=== PATIENT | male | born 1930 | race Two or more races ===

== ENCOUNTER 2016-09-22 19:23 | Inpatient (IN) | payer MEDICARE, OTHER ==
[~2016-09-22] VITALS: Ht 160 cm; Wt 56.7 kg
[2016-09-22 20:00] VITALS: BP 129/77
[2016-09-22] MEDS ORDERED: IV NS 0.9% 1,000 ML IV PRN (20:13)
[2016-09-22] MEDS ORDERED: MAGNESIUM HYDROXIDE 30 ML UDC PO PRN (20:30)
[2016-09-22] MEDS ORDERED: Z GUARD REMEDY 2 OZ OINT TP PRN (20:30)
[2016-09-22] MEDS ORDERED: ACETAMINOPHEN 325 MG TABLET PO PRN (20:30)
[2016-09-22] MEDS ORDERED: MAG HYDROX/AL HYDROX/SIMETH 30 ML UDC PO PRN (20:30)
[2016-09-22] MEDS ORDERED: HYDROCODONE/APAP 5/325MG 1 EACH TABLET PO PRN (20:30)
[2016-09-22] MEDS ORDERED: ONDANSETRON HCL/PF 4 MG/2 ML VIAL IVP PRN (20:30)
[2016-09-22] MEDS ORDERED: ZOLPIDEM TARTRATE 5 MG TABLET PO PRN (20:30)
[2016-09-22 20:36] VITALS: BP 129/77
[2016-09-23] VITALS: BP 125/77
[2016-09-23 00:05] LABS: DIFF TOTAL % 100 %; EOSINOPHILS # (AUTO) 0.1 /CMM (0.0-0.7); EOSINOPHILS % (AUTO) 0.3 % (0.0-6.0); HEMATOCRIT 31 % (39-51); HEMOGLOBIN 9.9 g/dL (13.5-17.5); LYMPHOCYTES # (AUTO) 1.5 /CMM (0.8-4.8); LYMPHOCYTES % (AUTO) 4.7 % (20.0-44.0); MEAN CORPUSCULAR HEMOGLOBIN 29 PG (26.0-33.0); MEAN CORPUSCULAR HGB CONC 32 g/dl (31.0-36.0); MEAN CORPUSCULAR VOLUME 88 fL (80-96); MONOCYTES # (AUTO) 1.7 /CMM (0.1-1.30); MONOCYTES % (AUTO) 5.4 % (2.0-12.0); NEUTROPHILS # (AUTO) 28.5 /CMM (1.8-8.9); NEUTROPHILS % (AUTO) 89.6 % (43.0-81.0); PLATELET COUNT (AUTO) 455 /CMM (150-450); RED BLOOD CELL COUNT(AUTO) 3.47 MIL/uL (4.5-6.0)
[2016-09-23 00:10] LABS: WHITE BLOOD COUNT (AUTO) 31.8 K/uL (4.3-11.0)
[2016-09-23 00:19] LABS: ALBUMIN 1.9 g/dL (3.4-5.0); BILIRUBIN,TOTAL 0.2 mg/dL (0.2-1.0); CALCIUM, SERUM 7.9 mg/dL (8.5-10.1); CREATININE 1.3 mg/dL (0.6-1.3); POTASSIUM 3.9 mmol/L (3.5-5.1); TOTAL PROTEIN, SERUM 5.5 g/dL (6.4-8.2)
[2016-09-23 00:21] LABS: INDIRECT BILIRUBIN 0.2 mg/dL (0.0-1.1)
[2016-09-23 00:23] LABS: TROPONIN I 0.184 ng/mL (0.00-0.056)
[2016-09-23] MEDS ORDERED: PIPERACILLIN /TAZOBACTAM 2.25 G VIAL IV ONE ×2 (01:09→06:18)
[2016-09-23] MEDS ORDERED: IV D5W 50 ML IV ONE ×2 (01:09→06:18)
[2016-09-23] MEDS ORDERED: IV SET PRIMARY PUMP SET 1 EA INFUS.SET MC ONE (01:19)
[2016-09-23] MEDS ORDERED: IV NS 0.9% 1,000 ML ONE (01:20)
[2016-09-23] MEDS ORDERED: SECONDARY IV SET 1 EA INFUS.SET MC ONE ×2 (01:20→09:55)
[2016-09-23] MEDS: PIPERACILLIN /TAZOBACTAM 2.25 G in IV D5W 50 ML IV SCH ×5 (01:25→23:07)
[2016-09-23 01:46] LABS: BASOPHILS % (MANUAL) 0 % (0.0-2.0); EOSINOPHILS % (MANUAL) 1 % (0-4); LYMPHOCYTES % (MANUAL) 5 % (16-48); PLATELET ESTIMATE INCREASED; RBC MORPHOLOGY COMMENT NORMAL RBC MORPH
[2016-09-23 04:00] VITALS: BP 115/68
[2016-09-23 07:46] LABS: BASOPHILS # (AUTO) 0.1 /CMM (0.0-0.2); BASOPHILS % (AUTO) 0.5 % (0.0-2.0); DIFF TOTAL % 100 %; EOSINOPHILS # (AUTO) 0.1 /CMM (0.0-0.7); EOSINOPHILS % (AUTO) 0.5 % (0.0-6.0); HEMATOCRIT 30 % (39-51); HEMOGLOBIN 9.9 g/dL (13.5-17.5); LYMPHOCYTES # (AUTO) 1.5 /CMM (0.8-4.8); LYMPHOCYTES % (AUTO) 5.5 % (20.0-44.0); MEAN CORPUSCULAR HEMOGLOBIN 29 PG (26.0-33.0); MEAN CORPUSCULAR HGB CONC 33 g/dl (31.0-36.0); MEAN CORPUSCULAR VOLUME 88 fL (80-96); MONOCYTES % (AUTO) 7.1 % (2.0-12.0); NEUTROPHILS # (AUTO) 24.1 /CMM (1.8-8.9); NEUTROPHILS % (AUTO) 86.4 % (43.0-81.0); PLATELET COUNT (AUTO) 424 /CMM (150-450); RED BLOOD CELL COUNT(AUTO) 3.43 MIL/uL (4.5-6.0); WHITE BLOOD COUNT (AUTO) 27.9 K/uL (4.3-11.0)
[2016-09-23 08:00] VITALS: BP 123/70
[2016-09-23 08:24] LABS: BAND % (MANUAL) 12 % (0.0-5.0); LYMPHOCYTES % (MANUAL) 6 % (16-48); PLATELET ESTIMATE INCREASED
[2016-09-23 08:31] LABS: CALCIUM, SERUM 7.8 mg/dL (8.5-10.1); CREATININE 1.4 mg/dL (0.6-1.3); PHOSPHORUS 2.4 mg/dL (2.5-4.9); POTASSIUM 3.8 mmol/L (3.5-5.1)
[2016-09-23 08:59] LABS: THYROID STIMULATING HORMONE 1.499 uIU/mL (0.358-3.74)
[2016-09-23] MEDS: ENOXAPARIN SODIUM 40 MG/0.4 ML DISP.SYRIN SQ SCH ×3 (09:00→11:29)
[2016-09-23] MEDS: Magnesium 1GM/D5W 100ML PREMIX 100 ML IV SCH ×2 (09:58→11:24)
[2016-09-23] MEDS: PANTOPRAZOLE 40 MG TABLET.DR PO SCH (09:59)
[2016-09-23] MEDS: ASPIRIN 81 MG TAB.CHEW PO SCH (09:59)
[2016-09-23] MEDS ORDERED: IV NS 0.9% 1,000 ML BAG IV PRN (12:30)
[2016-09-23] MEDS ORDERED: IV NS 0.9% 1,000 ML IV PRN (13:00)
[2016-09-23] MEDS ORDERED: METRONIDAZOLE 500 MG TABLET PO SCH (13:00)
[2016-09-23 15:50] LABS: KETONES,URINE NEGATIVE (NEGATIVE); LEUKOCYTE ESTERASE ,URINE 3+ (NEGATIVE); PH,URINE 5.5 (5.0-8.0)
[2016-09-23 15:51] LABS: ADD UA MICROSCOPIC YES
[2016-09-23 16:00] VITALS: BP 114/65
[2016-09-23 16:12] LABS: ADD URINE CULTURE YES; RBC,URINE TOO NUMEROUS TO COUN /HPF (0-2); WBC,URINE TOO NUMEROUS TO COUN /HPF (0-3)
[2016-09-23] MEDS ORDERED: K PHOS NEUTRAL 250 MG TABLET PO ONE (16:30)
[2016-09-23] MEDS: VANCOMYCIN HCL 125 MG/2.5 ML ORAL.SUSP PO SCH ×2 (17:26→23:07)
[2016-09-23] MEDS: IV NS 0.9% 1,000 ML IV PRN ×2 (18:12→23:06)
[2016-09-23 20:00] VITALS: BP 115/70
[2016-09-24] MEDS: PIPERACILLIN /TAZOBACTAM 2.25 G in IV D5W 50 ML IV SCH ×3 (05:21→17:31)
[2016-09-24] MEDS: VANCOMYCIN HCL 125 MG/2.5 ML ORAL.SUSP PO SCH ×4 (05:22→23:24)
[2016-09-24 07:07] LABS: BASOPHILS # (AUTO) 0.1 /CMM (0.0-0.2); BASOPHILS % (AUTO) 0.3 % (0.0-2.0); DIFF TOTAL % 100 %; EOSINOPHILS # (AUTO) 0.3 /CMM (0.0-0.7); EOSINOPHILS % (AUTO) 1.5 % (0.0-6.0); HEMATOCRIT 29 % (39-51); HEMOGLOBIN 9.5 g/dL (13.5-17.5); LYMPHOCYTES # (AUTO) 1.8 /CMM (0.8-4.8); LYMPHOCYTES % (AUTO) 9.7 % (20.0-44.0); MEAN CORPUSCULAR HEMOGLOBIN 29 PG (26.0-33.0); MEAN CORPUSCULAR HGB CONC 33 g/dl (31.0-36.0); MEAN CORPUSCULAR VOLUME 88 fL (80-96); MONOCYTES # (AUTO) 1.5 /CMM (0.1-1.30); MONOCYTES % (AUTO) 8.5 % (2.0-12.0); NEUTROPHILS # (AUTO) 14.5 /CMM (1.8-8.9); PLATELET COUNT (AUTO) 423 /CMM (150-450); RED BLOOD CELL COUNT(AUTO) 3.29 MIL/uL (4.5-6.0); WHITE BLOOD COUNT (AUTO) 18.1 K/uL (4.3-11.0)
[2016-09-24 07:10] LABS: TROPONIN I 0.139 ng/mL (0.00-0.056)
[2016-09-24 07:15] LABS: ALBUMIN 1.7 g/dL (3.4-5.0); BILIRUBIN,TOTAL 0.2 mg/dL (0.2-1.0); CALCIUM, SERUM 7.5 mg/dL (8.5-10.1); CREATININE 1.2 mg/dL (0.6-1.3); PHOSPHORUS 2.8 mg/dL (2.5-4.9); POTASSIUM 3.6 mmol/L (3.5-5.1); TOTAL PROTEIN, SERUM 4.9 g/dL (6.4-8.2)
[2016-09-24 08:00] VITALS: BP 133/74
[2016-09-24] MEDS: PANTOPRAZOLE 40 MG TABLET.DR PO SCH (08:07)
[2016-09-24] MEDS: ENOXAPARIN SODIUM 40 MG/0.4 ML DISP.SYRIN SQ SCH (08:08)
[2016-09-24] MEDS: ASPIRIN 81 MG TAB.CHEW PO SCH (08:08)
[2016-09-24] MEDS ORDERED: POLYVINYL ALCOHOL 15 ML BOTTLE EACHEYE PRN (12:00)
[2016-09-24 16:00] VITALS: BP 129/69
[2016-09-24] MEDS ORDERED: SECONDARY IV SET 1 EA INFUS.SET MC ONE (18:02)
[2016-09-24] MEDS: CEFTRIAXONE 1 G in IV D5W 50 ML IV SCH (18:05)
[2016-09-24] MEDS: FLUCONAZOLE (100 MG) 100 MG TABLET PO SCH (18:06)
[2016-09-24 20:00] VITALS: BP 138/77
[2016-09-25] MEDS: VANCOMYCIN HCL 125 MG/2.5 ML ORAL.SUSP PO SCH ×3 (05:32→17:28)
[2016-09-25 07:51] LABS: BASOPHILS # (AUTO) 0.1 /CMM (0.0-0.2); BASOPHILS % (AUTO) 0.6 % (0.0-2.0); DIFF TOTAL % 100 %; EOSINOPHILS # (AUTO) 0.2 /CMM (0.0-0.7); EOSINOPHILS % (AUTO) 2.1 % (0.0-6.0); HEMATOCRIT 30 % (39-51); LYMPHOCYTES # (AUTO) 1.7 /CMM (0.8-4.8); LYMPHOCYTES % (AUTO) 15.9 % (20.0-44.0); MEAN CORPUSCULAR HEMOGLOBIN 29 PG (26.0-33.0); MEAN CORPUSCULAR HGB CONC 33 g/dl (31.0-36.0); MEAN CORPUSCULAR VOLUME 87 fL (80-96); MONOCYTES # (AUTO) 1.2 /CMM (0.1-1.30); MONOCYTES % (AUTO) 10.6 % (2.0-12.0); NEUTROPHILS # (AUTO) 7.7 /CMM (1.8-8.9); NEUTROPHILS % (AUTO) 70.8 % (43.0-81.0); PLATELET COUNT (AUTO) 443 /CMM (150-450); RED BLOOD CELL COUNT(AUTO) 3.48 MIL/uL (4.5-6.0); WHITE BLOOD COUNT (AUTO) 10.9 K/uL (4.3-11.0)
[2016-09-25 08:00] VITALS: BP 150/78
[2016-09-25] MEDS: PANTOPRAZOLE 40 MG TABLET.DR PO SCH (08:21)
[2016-09-25] MEDS: ASPIRIN 81 MG TAB.CHEW PO SCH (08:22)
[2016-09-25] MEDS: FLUCONAZOLE (100 MG) 100 MG TABLET PO SCH (08:22)
[2016-09-25] MEDS: CHOLECALCIFEROL 1,000 UNIT TABLET (VIT D3) PO SCH (08:22)
[2016-09-25] MEDS: ENOXAPARIN SODIUM 40 MG/0.4 ML DISP.SYRIN SQ SCH (08:23)
[2016-09-25 08:32] LABS: CALCIUM, SERUM 7.8 mg/dL (8.5-10.1); CREATININE 1.2 mg/dL (0.6-1.3); POTASSIUM 3.5 mmol/L (3.5-5.1)
[2016-09-25 08:37] VITALS: BP 150/78
[2016-09-25 16:00] VITALS: BP 145/76
[2016-09-25] MEDS: CEFTRIAXONE 1 G in IV D5W 50 ML IV SCH (17:30)
[2016-09-25] MEDS ORDERED: CHOL100044 PO (17:42)
[2016-09-25] MEDS ORDERED: Fluconazole PO (17:42)
[2016-09-25] MEDS ORDERED: ASPI81TA2 PO (17:42)
[2016-09-25] MEDS ORDERED: VANC125C11 PO (17:43)
[2016-09-25] MEDS ORDERED: FLUC200T PO (18:47)
[2016-09-25 19:49] VITALS: BP 133/78
[2016-09-25 20:00] VITALS: BP 133/78
[2016-09-25] MEDS: VORICONAZOLE 200 MG TABLET PO SCH (22:03)
[2016-09-26] MEDS: VANCOMYCIN HCL 125 MG/2.5 ML ORAL.SUSP PO SCH ×3 (00:37→11:58)
[2016-09-26 08:00] VITALS: BP 146/71
[2016-09-26 08:01] LABS: CALCIUM, SERUM 7.9 mg/dL (8.5-10.1); CREATININE 1.2 mg/dL (0.6-1.3); POTASSIUM 3.6 mmol/L (3.5-5.1)
[2016-09-26] MEDS: CHOLECALCIFEROL 1,000 UNIT TABLET (VIT D3) PO SCH (08:22)
[2016-09-26] MEDS: ASPIRIN 81 MG TAB.CHEW PO SCH (08:22)
[2016-09-26] MEDS: PANTOPRAZOLE 40 MG TABLET.DR PO SCH (08:22)
[2016-09-26] MEDS: VORICONAZOLE 200 MG TABLET PO SCH (08:22)
[2016-09-26] MEDS: ENOXAPARIN SODIUM 40 MG/0.4 ML DISP.SYRIN SQ SCH (08:27)
[2016-09-26] MEDS ORDERED: Z GUARD REMEDY 4 OZ OINT TP PRN (10:30)
[2016-09-26] MEDS ORDERED: UREA 10% -AHA 4% CREAM 57 GM TUBE TP SCH (11:00)
[2016-09-26] MEDS ORDERED: Z GUARD REMEDY 2 OZ OINT TP SCH (17:00)
== END 2016-09-26 15:30 | disposition home or self-care (01) | DRG 871 ==
LOC: TELE 19:23 → MED 09-23 09:49
PROVIDERS: ADMIT Internal Medicine; ATTEND Internal Medicine
DX: A41.9 Sepsis, unspecified organism (principal); G92 Toxic encephalopathy; N17.0 Acute kidney failure with tubular necrosis; I21.4 Non-ST elevation (NSTEMI) myocardial infarction; E43 Unspecified severe protein-calorie malnutrition; E46 Unspecified protein-calorie malnutrition; A04.7 Enterocolitis due to Clostridium difficile; B37.49 Other urogenital candidiasis; R65.20 Severe sepsis without septic shock; F03.90 Unspecified dementia, unspecified severity, without behavioral disturbance, psychotic disturbance, mood disturbance, and anxiety; N40.0 Benign prostatic hyperplasia without lower urinary tract symptoms; B96.20 Unspecified Escherichia coli [E. coli] as the cause of diseases classified elsewhere; D64.9 Anemia, unspecified; E83.42 Hypomagnesemia; E86.1 Hypovolemia
CPT/HCPCS: 36415; 71010-TC; 80048-TC; 80053-TC; 80061-TC; 80076-TC; 81000-TC; 82306; 82728-TC; 83540-TC; 83605-TC; 83735-TC; 84100-TC; 84439-TC; 84443-TC; 84484-TC; 85025-TC; 87086-TC; 93307-TC; 97001-TC; 97110-TC; 97116-TC; 97530-TC; J0696; J1650; J2543; J3475; J7030; J7060; Z7610

== ENCOUNTER 2016-11-22 01:15 | Inpatient (IN) | payer MEDICARE ==
[~2016-11-22] VITALS: Ht 165.1 cm; Wt 48.1 kg
[~2016-11-22 01:15] MED LIST: ASPI81TA2 PO; CHOL100044 PO; FLUC200T PO; VANC125C11 PO
[2016-11-22] MEDS ORDERED: IV NS 0.9% 500 ML BAG IV ONE (01:30)
[2016-11-22 01:48] LABS: BASOPHILS % (AUTO) 0.1 % (0.0-2.0); EOSINOPHILS % (AUTO) 0.1 % (0.0-6.0); HEMATOCRIT 47 % (39-51); HEMOGLOBIN 15.1 g/dL (13.5-17.5); LYMPHOCYTES # (AUTO) 1.2 /CMM (0.8-4.8); LYMPHOCYTES % (AUTO) 4.5 % (20.0-44.0); MEAN CORPUSCULAR HEMOGLOBIN 27 PG (26.0-33.0); MEAN CORPUSCULAR HGB CONC 32 g/dl (31.0-36.0); MEAN CORPUSCULAR VOLUME 85 fL (80-96); MONOCYTES # (AUTO) 1.5 /CMM (0.1-1.30); MONOCYTES % (AUTO) 5.7 % (2.0-12.0); NEUTROPHILS # (AUTO) 23.3 /CMM (1.8-8.9); NEUTROPHILS % (AUTO) 89.6 % (43.0-81.0); PLATELET COUNT (AUTO) 489 /CMM (150-450); RDW COEFFICIENT OF VARIATION 16.9 (11.5-15.0); RED BLOOD CELL COUNT(AUTO) 5.52 MIL/uL (4.5-6.0)
--- NOTE | 2016-11-22 01:50 | NUR ---
PT BIB SON VIA WC WITH A C/O GENERALIZED WEAKNESS. PT IS AA&O X3. PT HAS A KURTZ TO GRAVITY HEEL COVER SOFTENER. URINE SAMPLE COLLECTED AND SENT TO LAB. 18G IV STARTED IN LAC. BLOOD WAS DRAWN AND SENT TO LAB. PT IS ON THE MONITOR AND CONTINUOUS PULSE OX. PT'S SON IS AT THE BEDSIDE. PT'S SON STATED THAT THE PT HAS BEEN HAVING DIARRHEA. HX OF C-DIFF.
[2016-11-22 01:55] LABS: BILIRUBIN,URINE NEGATIVE (NEGATIVE); BLOOD, URINE 3+ Ery/uL (NEGATIVE); COLOR,URINE YELLOW (YELLOW); KETONES,URINE 1+ (NEGATIVE); LEUKOCYTE ESTERASE ,URINE 2+ (NEGATIVE); NITRITE, URINE POSITIVE (NEGATIVE); PROTEIN,URINE TRACE mg/dl (NEGATIVE); UGLUCOSE NEGATIVE (NEGATIVE); UROBILINOGEN,URINE 0.2 EU/dL (0.2)
--- NOTE | 2016-11-22 01:55 | NUR ---
PT LEFT FOR CT VIA GURNEY.
[2016-11-22 02:00] LABS: CALCIUM, SERUM 9.4 mg/dL (8.5-10.1); CREATININE 2.1 mg/dL (0.6-1.3); POTASSIUM 4.2 mmol/L (3.5-5.1)
[2016-11-22 02:01] LABS: APPEARANCE,URINE CLOUDY (CLEAR)
[2016-11-22 02:02] LABS: ADD URINE CULTURE YES; BACTERIA,URINE 4+ /HPF (None Seen); SQUAMOUS EPITHELIAL CELL,UR Rare /HPF (None Seen); WBC,URINE TOO NUMEROUS TO COUN /HPF (0-3)
[2016-11-22 02:03] LABS: INR 0.99 (0.87-1.13); PROTHROMBIN TIME 10.6 SECS (9.5-12.7)
[2016-11-22 02:05] LABS: ALBUMIN 2.3 g/dL (3.4-5.0); BILIRUBIN,DIRECT 0.1 mg/dL (0.0-0.2); BILIRUBIN,TOTAL 0.6 mg/dL (0.2-1.0); TOTAL PROTEIN, SERUM 6.1 g/dL (6.4-8.2)
[2016-11-22] MEDS ORDERED: IV SET PRIMARY 1 EA INFUS.SET MC ONE (02:05)
[2016-11-22] MEDS ORDERED: IV NS 0.9% 500 ML IV ONE (02:05)
[2016-11-22] MEDS ORDERED: METRONIDAZOLE 500MG/ NS 100ML 100 ML IV ONE (02:05)
--- NOTE | 2016-11-22 02:06 | NUR ---
PT RETURNED FROM CT.
[2016-11-22 02:07] LABS: TROPONIN I 0.109 ng/mL (0.00-0.056)
--- NOTE | 2016-11-22 02:18 | NUR ---
PT REC'D NS ORDERED. DIRECTOR SUMMER SESSIONS IS AT THE BEDSIDE FOR BLOOD DRAW.
[2016-11-22] MEDS ORDERED: GLUC100017 PO (02:24)
[2016-11-22] MEDS ORDERED: PSYL3.4P6 PO (02:24)
--- NOTE | 2016-11-22 02:25 | NUR ---
CALLING REPORT TO TELE NURSE.
[2016-11-22] MEDS ORDERED: IV SET PRIMARY PUMP SET 1 EA INFUS.SET MC ONE ×2 (02:29→04:50)
[2016-11-22] MEDS ORDERED: FLAGYL/NS RTU 500 MG/100 ML PIGGYBACK IV ONE (02:30)
[2016-11-22] MEDS ORDERED: IV NS 0.9% 1,000 ML BAG IV ONE (02:30)
[2016-11-22] MEDS ORDERED: IV NS 0.9% 1,000 ML ONE (02:34)
[2016-11-22 02:35] LABS: LACTIC ACID 4.5 mmol/L (0.4-2.0)
[2016-11-22] MEDS ORDERED: ASPIRIN 325 MG TABLET ONE (02:40)
--- NOTE | 2016-11-22 02:45 | NUR ---
RUNNING 500 ML NS SLOWLY TO PREVENT FLUID OVERLOAD.
--- NOTE | 2016-11-22 02:48 | NUR ---
ENDORSING 1L NS TO ELECONSUELO, RN/TELE NURSE.
--- NOTE | 2016-11-22 02:50 | NUR ---
DR. CORNELL CALLED AND SPOKE TO DR. WATTS RE: PT ADMISSION.
[2016-11-22] MEDS ORDERED: ACETAMINOPHEN 325 MG TABLET PO PRN (03:00)
[2016-11-22] MEDS ORDERED: ASPIRIN 325 MG TABLET PO ONE (03:00)
[2016-11-22] MEDS ORDERED: ZOLPIDEM TARTRATE 5 MG TABLET PO PRN (03:00)
[2016-11-22] MEDS ORDERED: HYDROCODONE/APAP 5/325MG 1 EACH TABLET PO PRN (03:00)
[2016-11-22] MEDS ORDERED: IV NS 0.9% 1,000 ML IV SCH (03:00)
[2016-11-22] MEDS ORDERED: METRONIDAZOLE 500MG/ NS 100ML 500 MG in PREMIX 1 EA IV SCH ×2 (03:00→09:09)
[2016-11-22] MEDS ORDERED: Z GUARD REMEDY 2 OZ OINT TP PRN (03:00)
[2016-11-22] MEDS ORDERED: ONDANSETRON HCL/PF 4 MG/2 ML VIAL IVP PRN (03:00)
[2016-11-22 03:15] VITALS: BP 117/71
--- NOTE | 2016-11-22 03:15 | NUR ---
RECEIVED PATIENT FROM ER, NEW ADMISSION WITH DX OF SEPSIS RELATED TO RECENT C-DIFF INFECTION. ALERT AND ORIENTED X3, CALM, NO SOB, NO RESPIRATORY DISTRESS, ON ROOM AIR, 02 SAT 94%, MAY USE 2LPM VIA NC TO KEEP 02 SAT > 94%. ON AUSCULTATION, LUNG SOUNDS ARE CLEAR IN ALL M[place], ABDOMEN SOFT AND NON-TENDER, HYPOACTIVE BOWEL SOUNDS, PATIENT HAS NOT BEEN EATING AND HAS DIARRHEA FOR 1 WEEK. ABLE TO VERBALIZE NEEDS, ABLE TO SAY PAST MEDICAL HISTORY. HARD OF HEARING, NO HEARING AID. PATIENT ON NPO EXCEPT MEDS. LEFT AC #18 PERIPHERAL LINE IS PATENT AND INFUSING WELL OF NS BY GRAVITY FOR NOW. NO DIARRHEA DURING DIAPER CHANGE. KURTZ CATHETER FROM HOME, PATIENT IS CHRONIC KURTZ CATHETER USER, UNABLE TO VOID WITHOUT KURTZ CATHETER. URINE OUTPUT IS TEA COLORED URINE. SKIN ASSESSMENT PERFORMED. MOISTURE RELATED EXCORIATION NOTED TO SACRAL AREA AND GROIN AREA. APPLIED Z GUARD. ORIENTED TO USE OF CALL LIGHT AND ROOM. NEEDS ATTENDED, MADE COMFORTABLE, CALL LIGHT WITHIN REACH.
[2016-11-22 03:58] LABS: BAND % (MANUAL) 59 % (0.0-5.0); LYMPHOCYTES % (MANUAL) 4 % (16-48); MONOCYTES % (MANUAL) 6 % (0-11.0); NEUTROPHILS % (MANUAL) 31 (42-76)
[2016-11-22 03:59] LABS: PLATELET ESTIMATE INCREASED
[2016-11-22 04:00] LABS: ANISOCYTOSIS 1+
[2016-11-22] MEDS ORDERED: VANCOMYCIN HCL 125 MG/2.5 ML ORAL.SUSP ONE (04:01)
--- NOTE | 2016-11-22 04:04 | NUR ---
FLAGYL 500 MG IVP NOT GIVEN, PATIENT RECEIVED FLAGYL AT 0230 IN ER.
[2016-11-22] MEDS ORDERED: VANCOMYCIN FOR PO/GT USE 500 MG ORAL.SUSP PO SCH (06:00)
--- NOTE | 2016-11-22 06:02 | NUR ---
PER LAB LACTIC ACID IS 3.4. PREVIOUS LACTIC ACID BEFORE THE FLUID CHALLENGE IS 4.5. VITAL SIGNS ARE WNL, REMAINED AFEBRILE.
--- NOTE | 2016-11-22 06:31 | NUR ---
PATIENT IS ALERT AND AWAKE, MAKING JOKES, NO SOB, REMAINED AFEBRILE, KURTZ CATHETER DRAINING WELL, LAC #18 PERIPHERAL LINE IS PATENT AND INFUSING WELL WITH NS AT 100 CC/HR, EXPLAINED TO PATIENT REGARDING NPO STATUS. NO DIARRHEA NOTED, PATIENT IS ACTIVELY PASSING GAS.
[2016-11-22 07:00] VITALS: BP 116/75
--- NOTE | 2016-11-22 07:30 | NUR ---
PT RECEIVED RESTING COMFORTABLY IN BED. NO S/S OR C/O PAIN OR DISTRESS NOTED. SIDE RAILS UP X2, CALL LIGHT LEFT WITHIN REACH. WILL CONTINUE PLAN OF CARE.
[2016-11-22] MEDS ORDERED: IV NS 0.9% 1,000 ML IV PRN (08:40)
[2016-11-22] MEDS: PANTOPRAZOLE 40 MG TABLET.DR PO SCH (10:25)
[2016-11-22] MEDS: ASPIRIN 81 MG TAB.CHEW PO SCH (10:25)
[2016-11-22] MEDS: CHOLECALCIFEROL 1,000 UNIT TABLET (VIT D3) PO SCH (10:25)
[2016-11-22] MEDS: ENOXAPARIN SODIUM 30 MG/0.3 ML DISP.SYRIN SQ SCH (10:26)
--- NOTE | 2016-11-22 10:38 | NUR ---
WOUND CARE CONSULT: PATIENT SEEN AND SKIN ASSESSMENT DONE. PATIENT ALERT, ORIENTED, INCONTINENT, NEEDS ASSIST WITH TURNING AND REPOSITIONING, VISHNU 12, ANALY ISOFLEX LENI BED IN USE. SEE TODAY'S SKIN ASSESSMENT IN PCS ALONG WITH RECOMMENDATIONS. RECOMMEND MOISTURE PROTECTION WITH Z GUARD ORDERED, TURN AND REPOSITION EVERY 2 HRS PATIENT CONDITION PERMITS, OFFLOAD BOTH HEELS. ALL DISCUSSED WITH NURSING STAFF. MD IN AGREEMENT WITH PLAN OF CARE. Addendum: 11/22/16 at 1040 by RATNA MULLEN WNDNU Amended: Links added.
[2016-11-22] MEDS ORDERED: SECONDARY IV SET 1 EA INFUS.SET MC ONE (11:57)
[2016-11-22] MEDS: METRONIDAZOLE 500MG/ NS 100ML 500 MG in PREMIX 1 EA IV SCH ×2 (12:05→21:31)
[2016-11-22] MEDS ORDERED: VANCOMYCIN HCL 125 MG/2.5 ML ORAL.SUSP PO SCH (13:00)
[2016-11-22] MEDS: CLOTRIMAZOLE 1% 15 GM TUBE TP SCH (16:21)
[2016-11-22] MEDS: VANCOMYCIN HCL 125 MG/2.5 ML ORAL.SUSP PO SCH ×2 (16:21→21:34)
--- NOTE | 2016-11-22 18:57 | NUR ---
CHANGE OF SHIFT REPORT PT RESTING COMFORTABLY IN BED. NO S/S OR C/O PAIN OR DISTRESS NOTED. SIDE RAILS UP X2, CALL LIGHT LEFT WITHIN REACH. PT KEPT CLEAN, DRY, AND COMFORTABLE. NO SIGNIFICANT CHANGES SINCE PREVIOUS SHIFT. WILL GIVE REPORT TO ALEJANDRO YARBROUGH.
--- NOTE | 2016-11-22 19:20 | NUR ---
RN OPEN NOTES RECEIVED PATIENT AWAKE IN BED. A/O X3. NO SIGNS OF DISTRESS OR DISCOMFORT. BREATHING EVEN AND UNLABORED. IV ACCESS IN LAC WITH NS CURRENTLY INFUSING. NO SIGN OF REDNESS OR INFILTRATION. KURTZ IN TACT WITH CLEAR YELLOW FLUID NOTED. BED IN LOW LOCKED POSITION WITH SIDE RAILS X2. CALL LIGHT WITHIN REACH. WILL CONTINUE TO MONITOR.
[2016-11-22 20:00] VITALS: BP 101/64
[2016-11-23] MEDS: METRONIDAZOLE 500MG/ NS 100ML 500 MG in PREMIX 1 EA IV SCH ×3 (05:09→20:27)
--- NOTE | 2016-11-23 07:35 | NUR ---
RN CLOSING NOTES PATIENT AWAKE IN BED. A/O X3. NO SIGNS OF DISTRESS OR DISCOMFORT. BREATHING EVEN AND UNLABORED. IV ACCESS IN RAC WITH NS CURRENTLY INFUSING. NO SIGN OF REDNESS OR INFILTRATION. KURTZ IN TACT WITH CLEAR YELLOW FLUID NOTED. NO SIGNIFICANT CHANGES THROUGH THE NIGHT. PATIENT KEPT CLEAN DRY AND COMFORTABLE. BED IN LOW LOCKED POSITION WITH SIDE RAILS X2. CALL LIGHT WITHIN REACH. ENDORSED TO AM SHIFT FOR MAHAD
[2016-11-23 07:36] LABS: BASOPHILS # (AUTO) 0.1 /CMM (0.0-0.2); BASOPHILS % (AUTO) 0.9 % (0.0-2.0); EOSINOPHILS # (AUTO) 0.2 /CMM (0.0-0.7); EOSINOPHILS % (AUTO) 0.9 % (0.0-6.0); HEMATOCRIT 36 % (39-51); HEMOGLOBIN 12.1 g/dL (13.5-17.5); LYMPHOCYTES # (AUTO) 1.2 /CMM (0.8-4.8); MEAN CORPUSCULAR HEMOGLOBIN 28 PG (26.0-33.0); MEAN CORPUSCULAR HGB CONC 33 g/dl (31.0-36.0); MEAN CORPUSCULAR VOLUME 84 fL (80-96); MONOCYTES # (AUTO) 0.8 /CMM (0.1-1.30); MONOCYTES % (AUTO) 5.1 % (2.0-12.0); NEUTROPHILS # (AUTO) 14.4 /CMM (1.8-8.9); NEUTROPHILS % (AUTO) 86.1 % (43.0-81.0); PLATELET COUNT (AUTO) 429 /CMM (150-450); RDW COEFFICIENT OF VARIATION 17.6 (11.5-15.0); WHITE BLOOD COUNT (AUTO) 16.8 K/uL (4.3-11.0)
[2016-11-23 07:48] LABS: CALCIUM, SERUM 7.9 mg/dL (8.5-10.1); CREATININE 1.4 mg/dL (0.6-1.3); MAGNESIUM 1.6 mg/dL (1.8-2.4); PHOSPHORUS 2.8 mg/dL (2.5-4.9); POTASSIUM 3.5 mmol/L (3.5-5.1)
[2016-11-23 08:00] VITALS: BP 102/51
[2016-11-23] MEDS: CHOLECALCIFEROL 1,000 UNIT TABLET (VIT D3) PO SCH (08:12)
[2016-11-23] MEDS: PANTOPRAZOLE 40 MG TABLET.DR PO SCH (08:12)
[2016-11-23] MEDS: ASPIRIN 81 MG TAB.CHEW PO SCH (08:12)
[2016-11-23] MEDS: VANCOMYCIN HCL 125 MG/2.5 ML ORAL.SUSP PO SCH ×4 (08:12→20:27)
[2016-11-23] MEDS: ENOXAPARIN SODIUM 30 MG/0.3 ML DISP.SYRIN SQ SCH (08:19)
[2016-11-23] MEDS: CLOTRIMAZOLE 1% 15 GM TUBE TP SCH ×2 (08:20→16:25)
[2016-11-23] MEDS ORDERED: SECONDARY IV SET 1 EA INFUS.SET MC ONE (10:21)
[2016-11-23] MEDS: Magnesium 1GM/D5W 100ML PREMIX 100 ML IV SCH ×2 (10:28→11:45)
[2016-11-23] MEDS ORDERED: IV D5/ 0.9% NACL 1,000 ML IV PRN (10:33)
[2016-11-23] MEDS ORDERED: Magnesium 1GM/D5W 100ML PREMIX 100 ML IV SCH (10:33)
[2016-11-23] MEDS: POTASSIUM CHLORIDE 20 MEQ TAB.PRT.SR PO SCH ×3 (11:44→16:24)
[2016-11-23 16:00] VITALS: BP 113/63
[2016-11-23 18:58] LABS: BASOPHILS % (AUTO) 0.3 % (0.0-2.0); EOSINOPHILS # (AUTO) 0.1 /CMM (0.0-0.7); EOSINOPHILS % (AUTO) 0.7 % (0.0-6.0); HEMATOCRIT 37 % (39-51); HEMOGLOBIN 11.9 g/dL (13.5-17.5); LYMPHOCYTES # (AUTO) 1.3 /CMM (0.8-4.8); LYMPHOCYTES % (AUTO) 8.2 % (20.0-44.0); MEAN CORPUSCULAR HEMOGLOBIN 27 PG (26.0-33.0); MEAN CORPUSCULAR HGB CONC 32 g/dl (31.0-36.0); MEAN CORPUSCULAR VOLUME 85 fL (80-96); MONOCYTES # (AUTO) 0.9 /CMM (0.1-1.30); NEUTROPHILS % (AUTO) 84.8 % (43.0-81.0); PLATELET COUNT (AUTO) 444 /CMM (150-450); RDW COEFFICIENT OF VARIATION 17.6 (11.5-15.0); RED BLOOD CELL COUNT(AUTO) 4.36 MIL/uL (4.5-6.0); WHITE BLOOD COUNT (AUTO) 15.3 K/uL (4.3-11.0)
--- NOTE | 2016-11-23 19:10 | NUR ---
RN OPEN NOTES RECEIVED PATIENT AWAKE IN BED. A/O X3. NO SIGNS OF DISTRESS OR DISCOMFORT. BREATHING EVEN AND UNLABORED. IV ACCESS IN RAC WITH D5NS CURRENTLY INFUSING. NO SIGN OF REDNESS OR INFILTRATION. KURTZ IN TACT WITH CLEAR YELLOW FLUID NOTED. BED IN LOW LOCKED POSITION WITH SIDE RAILS X2. CALL LIGHT WITHIN REACH. WILL CONTINUE TO MONITOR.
[2016-11-23 20:00] VITALS: BP_SYST 117; BP_SYST 98; BP_DIAS 60; BP_DIAS 65
[2016-11-23] MEDS ORDERED: IV SET PRIMARY PUMP SET 1 EA INFUS.SET MC ONE (23:34)
[2016-11-24] MEDS: METRONIDAZOLE 500MG/ NS 100ML 500 MG in PREMIX 1 EA IV SCH ×3 (04:59→21:40)
[2016-11-24 06:29] LABS: BASOPHILS % (AUTO) 0.1 % (0.0-2.0); EOSINOPHILS # (AUTO) 0.1 /CMM (0.0-0.7); EOSINOPHILS % (AUTO) 0.9 % (0.0-6.0); HEMATOCRIT 34 % (39-51); HEMOGLOBIN 10.9 g/dL (13.5-17.5); LYMPHOCYTES # (AUTO) 1.6 /CMM (0.8-4.8); LYMPHOCYTES % (AUTO) 13.2 % (20.0-44.0); MEAN CORPUSCULAR HEMOGLOBIN 27 PG (26.0-33.0); MEAN CORPUSCULAR HGB CONC 32 g/dl (31.0-36.0); MEAN CORPUSCULAR VOLUME 84 fL (80-96); MONOCYTES % (AUTO) 8.6 % (2.0-12.0); NEUTROPHILS # (AUTO) 9.1 /CMM (1.8-8.9); NEUTROPHILS % (AUTO) 77.2 % (43.0-81.0); PLATELET COUNT (AUTO) 444 /CMM (150-450); RDW COEFFICIENT OF VARIATION 17.1 (11.5-15.0); RED BLOOD CELL COUNT(AUTO) 4.03 MIL/uL (4.5-6.0); WHITE BLOOD COUNT (AUTO) 11.8 K/uL (4.3-11.0)
[2016-11-24 06:33] LABS: ALBUMIN 1.6 g/dL (3.4-5.0); BILIRUBIN,TOTAL 0.3 mg/dL (0.2-1.0); CALCIUM, SERUM 7.6 mg/dL (8.5-10.1); CREATININE 1.2 mg/dL (0.6-1.3); MAGNESIUM 2.2 mg/dL (1.8-2.4)
--- NOTE | 2016-11-24 07:19 | NUR ---
RN CLOSING NOTES PATIENT AWAKE IN BED. A/O X3. NO SIGNS OF DISTRESS OR DISCOMFORT. BREATHING EVEN AND UNLABORED. IV ACCESS IN RAC WITH D5NS CURRENTLY INFUSING. NO SIGN OF REDNESS OR INFILTRATION. KURTZ IN TACT WITH CLEAR YELLOW FLUID NOTED. NO SIGNIFICANT CHANGES THROUGH THE NIGHT. PATIENT KEPT CLEAN DRY AND COMFORTABLE. BED IN LOW LOCKED POSITION WITH SIDE RAILS X2. CALL LIGHT WITHIN REACH. ENDORSED TO AM SHIFT FOR MAHAD
--- NOTE | 2016-11-24 07:25 | NUR ---
RN MS NOTES PATIENT IN BED, ALERT AND ORIENTED, NO S/SX OF DISTRESS AT THIS TIME, PIV PATENT AND INTACT WITH IV FLUIDS INFUSING, SAFETY MEASURES IN PLACED, BED ALARM ON, LOW LOCKED POSITION, SIDERAILS X2 UP, CALL LIGHT WITHIN REACH, WILL CONTINUE TO MONITOR.
[2016-11-24] MEDS: CHOLECALCIFEROL 1,000 UNIT TABLET (VIT D3) PO SCH (08:32)
[2016-11-24] MEDS: PANTOPRAZOLE 40 MG TABLET.DR PO SCH (08:32)
[2016-11-24] MEDS: ASPIRIN 81 MG TAB.CHEW PO SCH (08:32)
[2016-11-24] MEDS: VANCOMYCIN HCL 125 MG/2.5 ML ORAL.SUSP PO SCH ×4 (08:32→21:41)
[2016-11-24] MEDS: ENOXAPARIN SODIUM 30 MG/0.3 ML DISP.SYRIN SQ SCH (08:36)
[2016-11-24 08:50] VITALS: BP 93/64
[2016-11-24] MEDS: CLOTRIMAZOLE 1% 15 GM TUBE TP SCH ×2 (10:59→16:34)
[2016-11-24] MEDS ORDERED: IV NS 0.9% 250 ML IV ONE (11:53)
[2016-11-24] MEDS ORDERED: SECONDARY IV SET 1 EA INFUS.SET MC ONE (12:13)
--- NOTE | 2016-11-24 14:00 | NUR ---
RN MS NOTES RECEIVED A CALL FROM LAB C. DIFF DNA CAME BACK POSITIVE, DR. MARTI MADE AWARE.
[2016-11-24] MEDS ORDERED: K PHOS NEUTRAL 250 MG TABLET PO ONE (14:30)
[2016-11-24 16:00] VITALS: BP 96/63
--- NOTE | 2016-11-24 18:30 | NUR ---
RN MS NOTES PATIENT IN BED, ALERT AND ORIENTED WITH EPISODE OF SUDDEN OUTBURSTS, APPROACHED PATIENT CALMLY AND ASKED IF HE NEEDS ASSISTANCE, PATIENT REFUSED DINNER AT THIS TIME, WILL OFFER AGAIN AT A LATER TIME, STAFF REPORTED PATIENT HAD 1 BM DURING THIS SHIFT, NO LOOSE STOOL, WOUND TREATMENT RENDERED, PROMPTED PATIENT TO TURN AND REPOSITION, REFUSES TO WEAR SCD DEVICE AT THIS TIME, EXPLAINED RISKS AND BENEFITS STILL REFUSED, PIV ON RIGHT AC PATENT AND INTACT, FLUSHES WELL WITH NS, ALL DUE MEDS ADMINISTERED, LOW BED, LOCKED POSITION WITH SIDERAILS X2 UP, CALL LIGHT WITHIN REACH, CONTINUES ON CONTACT PRECAUTION FOR C. DIFF, WILL ENDORSE TO FIXTURE REPAIRER FABRICATOR FOR MAHAD.
[2016-11-24 20:00] VITALS: BP 106/58
--- NOTE | 2016-11-24 20:00 | NUR ---
PATIENT IN BED, ALERT AND ORIENTED X3, CALM, NO RESPIRATORY DISTRESS, ON ROOM AIR, 02 SAT 96%, LUNG SOUNDS ARE CLEAR, ABDOMEN SOFT AND NON-TENDER, ACTIVE BOWEL SOUNDS. RIGHT AC #22 IS PATENT AND INTACT, COMPLAINING OF BACK DISCOMFORT, APPLIED LOTION TO BACK DOWN TO LOWER BACK. PATIENT DID NOT EAT DINNER. ENCOURAGED PATIENT TO EAT, FOOD HEATED, REPOSITIONED TO HIGH NICOLE'S. PATIENT ABLE TO EAT ON HIS OWN WITH MINIMAL ASSISTANCE. NO COUGHING DURING SWALLOWING. KURTZ CATHETER IS DRAINING WELL. PATIENT IS DEPENDENT ON KURTZ CATHETER TO VOID. URINE OUTPUT AT START OF SHIFT IS 200 CC, DARK COLORED URINE. NEEDS ATTENDED, CALL LIGHT WITHIN REACH.
[2016-11-25] MEDS: METRONIDAZOLE 500MG/ NS 100ML 500 MG in PREMIX 1 EA IV SCH (04:34)
--- NOTE | 2016-11-25 06:45 | NUR ---
PATIENT IS ALERT AND AWAKE, NO SOB, TOLERATING ROOM AIR, DENIES ANY PAIN AT THIS TIME. PROVIDED SKIN CARE TO BACK, SACRAL AND GROIN AREA. REPOSITIONED PATIENT SIDE TO SIDE, KURTZ CATHETER IS DRAINING DARK COLORED URINE, ALL DUE MEDICATIONS GIVEN, CALL LIGHT WITHIN REACH
[2016-11-25 07:29] LABS: BASOPHILS % (AUTO) 0.3 % (0.0-2.0); EOSINOPHILS # (AUTO) 0.2 /CMM (0.0-0.7); EOSINOPHILS % (AUTO) 1.5 % (0.0-6.0); HEMATOCRIT 36 % (39-51); HEMOGLOBIN 11.5 g/dL (13.5-17.5); LYMPHOCYTES % (AUTO) 18.7 % (20.0-44.0); MEAN CORPUSCULAR HEMOGLOBIN 27 PG (26.0-33.0); MEAN CORPUSCULAR HGB CONC 32 g/dl (31.0-36.0); MEAN CORPUSCULAR VOLUME 85 fL (80-96); MONOCYTES # (AUTO) 1.2 /CMM (0.1-1.30); MONOCYTES % (AUTO) 11.4 % (2.0-12.0); NEUTROPHILS # (AUTO) 7.3 /CMM (1.8-8.9); NEUTROPHILS % (AUTO) 68.1 % (43.0-81.0); PLATELET COUNT (AUTO) 476 /CMM (150-450); RDW COEFFICIENT OF VARIATION 17.6 (11.5-15.0); RED BLOOD CELL COUNT(AUTO) 4.21 MIL/uL (4.5-6.0); WHITE BLOOD COUNT (AUTO) 10.7 K/uL (4.3-11.0)
--- NOTE | 2016-11-25 07:33 | NUR ---
AM RN NOTE Received patient awake, A/O X3 verbally responsive. Pleasant and talkative upon approach. Denies any pain at this time. IV site intact and patent. Bed in low locked position. Will continue to monitor. Call light with in reach.
[2016-11-25 07:48] LABS: CALCIUM, SERUM 7.5 mg/dL (8.5-10.1); CREATININE 1.1 mg/dL (0.6-1.3); PHOSPHORUS 2.4 mg/dL (2.5-4.9); POTASSIUM 3.7 mmol/L (3.5-5.1)
[2016-11-25 08:00] VITALS: BP 93/58
[2016-11-25] MEDS: PANTOPRAZOLE 40 MG TABLET.DR PO SCH (08:15)
[2016-11-25] MEDS: CHOLECALCIFEROL 1,000 UNIT TABLET (VIT D3) PO SCH (08:15)
[2016-11-25] MEDS: ASPIRIN 81 MG TAB.CHEW PO SCH (08:15)
[2016-11-25] MEDS: CLOTRIMAZOLE 1% 15 GM TUBE TP SCH ×2 (08:16→16:52)
[2016-11-25] MEDS: ENOXAPARIN SODIUM 30 MG/0.3 ML DISP.SYRIN SQ SCH (08:21)
[2016-11-25] MEDS: VANCOMYCIN HCL 125 MG/2.5 ML ORAL.SUSP PO SCH ×4 (08:41→21:44)
[2016-11-25] MEDS: METRONIDAZOLE 500 MG TABLET PO SCH ×2 (12:31→21:41)
[2016-11-25] MEDS ORDERED: K PHOS NEUTRAL 250 MG TABLET PO ONE (15:00)
[2016-11-25 16:00] VITALS: BP 93/58
--- NOTE | 2016-11-25 18:26 | NUR ---
RN NOTE Patient awake, denies any pain at this time. All needs met and attended in timely manner. Will endorse to next shift in stable condition.
--- NOTE | 2016-11-25 19:30 | NUR ---
RN NOTES: RECEIVED PATIENT LYING COMFORTABLY IN BED,A/OX3,PLEASANT MOOD AND ABLE TO MAKE NEEDS KNOWN,NO SIGN OF PAIN OR DISCOMFORT, NOT IN RESPIRATORY DISTRESS.KURTZ CATH DRAINING INTO DARK BROWN COLORED URINE AT 50 CC LEVEL; FALL, SAFETY AND ASPIRATION PRECAUTION OBSERVE.BED LOW AND LOCKED,CALL LIGHT WITHIN REACH.ORIENTED TO NEW INCOMING STAFF. - ISOLATION AND UNIVERSAL PRECAUTION OBSERVED FOR C.DIFF.
[2016-11-25 20:00] VITALS: BP 90/54
[2016-11-25 20:09] VITALS: BP 86/54
[2016-11-25] MEDS ORDERED: SULFAMETH/TRIMETH 800/160 MG 1 UDTAB TABLET PO SCH (21:00)
[2016-11-25] MEDS: SULFAMETH/TRIMETH 800/160 MG 1 UDTAB TABLET PO SCH (21:41)
--- NOTE | 2016-11-26 02:14 | NUR ---
RN NOTES: TURN AND REPOSITION DONE, ASLEEP MOST OF THE TIME, ON CLOSE VISUAL CHECK.CALL LIGHT WITH IN REACH.
[2016-11-26 04:54] VITALS: BP 107/59
[2016-11-26] MEDS: METRONIDAZOLE 500 MG TABLET PO SCH ×3 (05:10→21:46)
--- NOTE | 2016-11-26 06:45 | NUR ---
RN NOTES: ASLEEP MOST OF THE TIME, MORNING CARE RENDERED, LATEST BP-107/59 MT-67 RR-21 SPO2-98% T-98.3.NO SIGN OF RESPIRATORY DEPRESSION NOTED, CALL LIGHT WITH IN REACH,ENDORSE TO MORNING SHIFT FOR CONTINUITY OF CARE.
--- NOTE | 2016-11-26 07:15 | NUR ---
MS RN INITIAL NOTES REPORT RECEIVED AT THE BEDSIDE. PATIENT IS SLEEPING AT THIS TIME. NO SOB OR DISTRESS NOTED. PATIENT DOES NOT APPEAR TO BE IN PAIN, NO FACIAL GRIMACE NOTED. BED IN A LOW POSITION, CALL LIGHT WITHIN PATIENT REACH. WILL CONTINUE TO MONITOR.
[2016-11-26 07:37] LABS: BASOPHILS % (AUTO) 0.5 % (0.0-2.0); EOSINOPHILS # (AUTO) 0.2 /CMM (0.0-0.7); EOSINOPHILS % (AUTO) 1.8 % (0.0-6.0); HEMATOCRIT 33 % (39-51); HEMOGLOBIN 10.9 g/dL (13.5-17.5); LYMPHOCYTES # (AUTO) 2.3 /CMM (0.8-4.8); LYMPHOCYTES % (AUTO) 22.5 % (20.0-44.0); MEAN CORPUSCULAR HEMOGLOBIN 28 PG (26.0-33.0); MEAN CORPUSCULAR HGB CONC 33 g/dl (31.0-36.0); MEAN CORPUSCULAR VOLUME 84 fL (80-96); MONOCYTES # (AUTO) 1.1 /CMM (0.1-1.30); NEUTROPHILS # (AUTO) 6.4 /CMM (1.8-8.9); NEUTROPHILS % (AUTO) 64.2 % (43.0-81.0); PLATELET COUNT (AUTO) 450 /CMM (150-450); RDW COEFFICIENT OF VARIATION 17.9 (11.5-15.0); RED BLOOD CELL COUNT(AUTO) 3.95 MIL/uL (4.5-6.0)
[2016-11-26 07:43] LABS: CALCIUM, SERUM 7.1 mg/dL (8.5-10.1); CREATININE 1.1 mg/dL (0.6-1.3); MAGNESIUM 1.8 mg/dL (1.8-2.4); POTASSIUM 3.6 mmol/L (3.5-5.1)
[2016-11-26 08:00] VITALS: BP 98/55
[2016-11-26] MEDS: ASPIRIN 81 MG TAB.CHEW PO SCH (08:22)
[2016-11-26] MEDS: PANTOPRAZOLE 40 MG TABLET.DR PO SCH (08:22)
[2016-11-26] MEDS: CHOLECALCIFEROL 1,000 UNIT TABLET (VIT D3) PO SCH (08:23)
[2016-11-26] MEDS: VANCOMYCIN HCL 125 MG/2.5 ML ORAL.SUSP PO SCH ×4 (08:23→21:46)
[2016-11-26] MEDS: SULFAMETH/TRIMETH 800/160 MG 1 UDTAB TABLET PO SCH ×2 (08:23→21:46)
[2016-11-26] MEDS: ENOXAPARIN SODIUM 30 MG/0.3 ML DISP.SYRIN SQ SCH (08:23)
[2016-11-26] MEDS: CLOTRIMAZOLE 1% 15 GM TUBE TP SCH ×2 (08:24→17:02)
[2016-11-26 16:00] VITALS: BP 104/64
--- NOTE | 2016-11-26 16:16 | NUR ---
MS YARBROUGH NOTES PATIENT HAS HAD NO EPISODES OF DIARRHEA TODAY. ONLY ONE SMALL SOFT BOWEL MOVEMENT. Addendum: 11/26/16 at 1617 by FIGUEROA LAZCANO RN STOOL IS NOT LIQUID
[2016-11-26] MEDS: BOOST PLUS FOOD-VANILLA 237 ML BOX PO SCH (17:02)
--- NOTE | 2016-11-26 18:41 | NUR ---
MS RN CLOSING NOTES NO SIGNIFICANT CHANGES IN PATIENT CONDITION THROUGHOUT THE SHIFT. NO SOB OR DISTRESS NOTED AT THIS TIME, PATIENT DENIES PAIN. BED IN A LOW POSITION, CALL LIGHT WITHIN PATIENT REACH. WILL ENDORSE TO NEXT SHIFT FOR MAHAD.
--- NOTE | 2016-11-26 19:10 | NUR ---
RN OPEN NOTES RECEIVED PATIENT AWAKE IN BED. A/O X3. NO SIGNS OF DISTRESS OR DISCOMFORT. BREATHING EVEN AND UNLABORED. IV ACCESS IN RAC PATENT AND INTACT, NO SIGN OF REDNESS OR INFILTRATION. KURTZ IN TACT WITH CLEAR YELLOW FLUID NOTED. BED IN LOW LOCKED POSITION WITH SIDE RAILS X2. CALL LIGHT WITHIN REACH. WILL CONTINUE TO MONITOR.
[2016-11-26 20:00] VITALS: BP 101/67
[2016-11-26 20:16] VITALS: BP 101/67
[2016-11-27] MEDS: METRONIDAZOLE 500 MG TABLET PO SCH ×2 (05:39→12:55)
[2016-11-27 06:54] LABS: BASOPHILS # (AUTO) 0.1 /CMM (0.0-0.2); BASOPHILS % (AUTO) 0.7 % (0.0-2.0); EOSINOPHILS # (AUTO) 0.2 /CMM (0.0-0.7); EOSINOPHILS % (AUTO) 1.6 % (0.0-6.0); HEMATOCRIT 32 % (39-51); HEMOGLOBIN 10.5 g/dL (13.5-17.5); LYMPHOCYTES # (AUTO) 2.3 /CMM (0.8-4.8); LYMPHOCYTES % (AUTO) 21.5 % (20.0-44.0); MEAN CORPUSCULAR HEMOGLOBIN 28 PG (26.0-33.0); MEAN CORPUSCULAR HGB CONC 33 g/dl (31.0-36.0); MEAN CORPUSCULAR VOLUME 84 fL (80-96); MONOCYTES % (AUTO) 9.6 % (2.0-12.0); NEUTROPHILS % (AUTO) 66.6 % (43.0-81.0); PLATELET COUNT (AUTO) 518 /CMM (150-450); RDW COEFFICIENT OF VARIATION 17.9 (11.5-15.0); RED BLOOD CELL COUNT(AUTO) 3.81 MIL/uL (4.5-6.0); WHITE BLOOD COUNT (AUTO) 10.6 K/uL (4.3-11.0)
--- NOTE | 2016-11-27 07:30 | NUR ---
PT RECEIVED RESTING COMFORTABLY IN BED WITH EYES CLOSE. NO S/S OR C/O PAIN OR DISTRESS NOTED. SIDE RAILS UP X2, CALL LIGHT LEFT WITHIN REACH. WILL CONTINUE PLAN OF CARE.
[2016-11-27 07:38] LABS: ALBUMIN 1.7 g/dL (3.4-5.0); CALCIUM, SERUM 7.7 mg/dL (8.5-10.1); CREATININE 1.2 mg/dL (0.6-1.3); MAGNESIUM 1.8 mg/dL (1.8-2.4); PHOSPHORUS 2.5 mg/dL (2.5-4.9); POTASSIUM 3.8 mmol/L (3.5-5.1)
--- NOTE | 2016-11-27 07:58 | NUR ---
RN CLOSING NOTES PATIENT AWAKE IN BED. A/O X3. NO SIGNS OF DISTRESS OR DISCOMFORT. BREATHING EVEN AND UNLABORED. IV ACCESS IN RAC PATENT AND INTACT, NO SIGN OF REDNESS OR INFILTRATION. KURTZ IN TACT WITH GABY FLUID NOTED. NO SIGNIFICANT CHANGES THROUGH THE NIGHT. PATIENT KEPT CLEAN DRY AND COMFORTABLE. BED IN LOW LOCKED POSITION WITH SIDE RAILS X2. CALL LIGHT WITHIN REACH. ENDORSED TO AM SHIFT FOR MAHAD
[2016-11-27 08:00] VITALS: BP 120/69
[2016-11-27] MEDS: ASPIRIN 81 MG TAB.CHEW PO SCH (08:36)
[2016-11-27] MEDS: VANCOMYCIN HCL 125 MG/2.5 ML ORAL.SUSP PO SCH ×3 (08:36→16:18)
[2016-11-27] MEDS: CHOLECALCIFEROL 1,000 UNIT TABLET (VIT D3) PO SCH (08:36)
[2016-11-27] MEDS: PANTOPRAZOLE 40 MG TABLET.DR PO SCH (08:36)
[2016-11-27] MEDS: SULFAMETH/TRIMETH 800/160 MG 1 UDTAB TABLET PO SCH (08:39)
[2016-11-27] MEDS: ENOXAPARIN SODIUM 30 MG/0.3 ML DISP.SYRIN SQ SCH (08:46)
[2016-11-27] MEDS: BOOST PLUS FOOD-VANILLA 237 ML BOX PO SCH ×2 (09:11→16:18)
[2016-11-27] MEDS: CLOTRIMAZOLE 1% 15 GM TUBE TP SCH ×2 (09:11→16:21)
[2016-11-27] MEDS ORDERED: SULF1TAB48 PO (10:15)
[2016-11-27] MEDS ORDERED: VANC500V PO ×4 (10:15)
[2016-11-27 16:00] VITALS: BP 116/73
--- NOTE | 2016-11-27 18:17 | NUR ---
CHANGE OF SHIFT REPORT PT RESTING COMFORTABLE IN BED. NO S/S OR C/O PAIN OR DISTRESS NOTED. SIDE RAILS UP X2, CALL LIGHT LEFT WITHIN REACH. PT KEPT CLEAN, DRY, AND COMFORTABLE. NO SIGNIFICANT CHANGES SINCE PREVIOUS SHIFT. WILL GIVE REPORT TO ALEJANDRO YARBROUGH.
--- NOTE | 2016-11-27 19:18 | NUR ---
DISCHARGE INSTRUCTIONS GIVEN ORDERED. ENCOURAGED TO FOLLOW UP WITH PMD INSTRUCTED. ALL QUESTIONS AND CONCERNS ADDRESSED. PATIENT VERBALIZED UNDERSTANDING. MEDICATION RECONCILIATION FORM COMPLETED AND COPY GIVEN TO PATIENT. IV REMOVED WITH CATHETER INTACT, KURTZ LEFT IN PER MD. PATIENT TAKEN TO VEHICLE VIA WHEELCHAIR WITH ALL PERSONAL BELONGINGS, ACCOMPANIED BY STAFF AND FAMILY MEMBER. NO DISTRESS NOTED AT TIME OF DEPARTURE.
== END 2016-11-27 19:15 | disposition home health service (06) | DRG 871 ==
LOC: ER 01:20 → MED 02:55 → TELE 03:30 → MED 09:46
PROVIDERS: ADMIT Family Medicine; ATTEND Nurse Practitioner Acute Care
DX: A41.9 Sepsis, unspecified organism (principal); I21.4 Non-ST elevation (NSTEMI) myocardial infarction; N17.0 Acute kidney failure with tubular necrosis; E43 Unspecified severe protein-calorie malnutrition; A04.7 Enterocolitis due to Clostridium difficile; N39.0 Urinary tract infection, site not specified; E87.1 Hypo-osmolality and hyponatremia; E87.2 Acidosis; R64 Cachexia; Z68.1 Body mass index [BMI] 19.9 or less, adult; E86.0 Dehydration; I70.0 Atherosclerosis of aorta; I10 Essential (primary) hypertension; F03.90 Unspecified dementia, unspecified severity, without behavioral disturbance, psychotic disturbance, mood disturbance, and anxiety; B96.20 Unspecified Escherichia coli [E. coli] as the cause of diseases classified elsewhere; D75.89 Other specified diseases of blood and blood-forming organs; E83.42 Hypomagnesemia; I25.10 Atherosclerotic heart disease of native coronary artery without angina pectoris; Z87.440 Personal history of urinary (tract) infections; R65.20 Severe sepsis without septic shock
CPT/HCPCS: 36415; 70450-TC; 71010-TC; 80048-TC; 80053-TC; 80061-TC; 80076-TC; 81000-TC; 82040-TC; 82962-TC; 83605-TC; 83735-TC; 84100-TC; 84484-TC; 85025-TC; 85730-TC; 87040-TC; 87081-TC; 87086-TC; 87186-TC; 92521; 97001-TC; 97003-TC; 97110-TC; 97116-TC; 97530-TC; 97535-TC; A4216; A4606; J1650; J3370; J3475; J3490; J7030; J7040; J7042; J7050; Z7610

== ENCOUNTER 2017-02-08 13:56 | Inpatient (IN) | payer MEDICARE ==
[~2017-02-08] VITALS: Ht 160 cm; Wt 59.0 kg
[~2017-02-08 13:56] MED LIST changes: -FLUC200T PO; +GLUC100017 PO; +PSYL3.4P6 PO; +SULF1TAB48 PO; -VANC125C11 PO; +VANC500V PO
--- NOTE | 2017-02-08 14:22 | NUR ---
DR LOWE AT BEDSIDE FOR EVAL.
[2017-02-08] MEDS ORDERED: IV NS 0.9% 500 ML BAG IV ONE (14:30)
--- NOTE | 2017-02-08 14:31 | NUR ---
IV LINE STARTED. BLOOD DRAWN AND SENT TO LAB.
[2017-02-08] MEDS ORDERED: IV NS 0.9% 500 ML IV ONE (14:32)
[2017-02-08] MEDS ORDERED: IV SET PRIMARY 1 EA INFUS.SET MC ONE (14:32)
[2017-02-08 14:44] LABS: BASOPHILS % (AUTO) 0.4 % (0.0-2.0); EOSINOPHILS % (AUTO) 0.4 % (0.0-6.0); HEMATOCRIT 41 % (39-51); HEMOGLOBIN 13.7 g/dL (13.5-17.5); LYMPHOCYTES # (AUTO) 1.2 /CMM (0.8-4.8); LYMPHOCYTES % (AUTO) 12.1 % (20.0-44.0); MEAN CORPUSCULAR HEMOGLOBIN 29 PG (26.0-33.0); MEAN CORPUSCULAR HGB CONC 33 g/dl (31.0-36.0); MEAN CORPUSCULAR VOLUME 87 fL (80-96); MONOCYTES % (AUTO) 9.9 % (2.0-12.0); NEUTROPHILS # (AUTO) 7.4 /CMM (1.8-8.9); NEUTROPHILS % (AUTO) 77.2 % (43.0-81.0); PLATELET COUNT (AUTO) 323 /CMM (150-450); RED BLOOD CELL COUNT(AUTO) 4.76 MIL/uL (4.5-6.0); WHITE BLOOD COUNT (AUTO) 9.6 K/uL (4.3-11.0)
[2017-02-08 14:55] LABS: CALCIUM, SERUM 9.6 mg/dL (8.5-10.1); CARBON DIOXIDE 24 mmol/L (21-32); CHLORIDE 110 mmol/L (98-107); CREATININE 1.4 mg/dL (0.6-1.3); GLUCOSE 153 mg/dL (74-106); POTASSIUM 4.4 mmol/L (3.5-5.1); SODIUM SERUM 145 mmol/L (136-145); UREA NITROGEN, BLOOD 32 mg/dL (7-18)
[2017-02-08 15:00] LABS: ALANINE AMINOTRANSFERASE 31 U/L (12-78); ALBUMIN 3.5 g/dL (3.4-5.0); ALKALINE PHOSPHATASE 92 U/L (46-116); ASPARTATE AMINOTRANSFERASE 20 U/L (15-37); BILIRUBIN,DIRECT 0.1 mg/dL (0.0-0.2); BILIRUBIN,TOTAL 0.5 mg/dL (0.2-1.0); LIPASE 91 U/L (73-393); TOTAL PROTEIN, SERUM 7.2 g/dL (6.4-8.2)
[2017-02-08 15:02] LABS: TROPONIN I 0.353 ng/mL (0.00-0.056)
[2017-02-08] MEDS ORDERED: ASPIRIN 325 MG TABLET ONE (15:18)
--- NOTE | 2017-02-08 15:28 | NUR ---
pt to radiology for abdominal ct scan via [facility].
[2017-02-08] MEDS ORDERED: ASPIRIN 325 MG TABLET PO ONE (15:30)
[2017-02-08 15:43] LABS: APPEARANCE,URINE CLOUDY (CLEAR); BILIRUBIN,URINE NEGATIVE (NEGATIVE); BLOOD, URINE 1+ Ery/uL (NEGATIVE); COLOR,URINE YELLOW (YELLOW); KETONES,URINE NEGATIVE (NEGATIVE); LEUKOCYTE ESTERASE ,URINE 3+ (NEGATIVE); NITRITE, URINE NEGATIVE (NEGATIVE); PH,URINE 8.5 (5.0-8.0); PROTEIN,URINE 1+ mg/dl (NEGATIVE); UGLUCOSE NEGATIVE (NEGATIVE); UROBILINOGEN,URINE 0.2 EU/dL (0.2)
[2017-02-08 15:48] LABS: BACTERIA,URINE 4+ /HPF (None Seen); MUCUS,URINE Few /LPF (None Seen)
[2017-02-08 15:49] LABS: CALCIUM OXALATE CRYSTALS,UR Many /HPF (None Seen)
[2017-02-08] MEDS ORDERED: CEFTRIAXONE 1GM BAG (ER ONLY) 50 ML IV ONE (16:23)
[2017-02-08] MEDS ORDERED: IV SET PRIMARY PUMP SET 1 EA INFUS.SET MC ONE (16:24)
[2017-02-08] MEDS ORDERED: MORPHINE SULFATE INJ 4 MG/ML DISP.SYRIN ONE (16:29)
[2017-02-08] MEDS ORDERED: CEFTRIAXONE 1GM BAG (ER ONLY) 1 GM/50 ML PIGGYBACK IV ONE (16:30)
[2017-02-08] MEDS ORDERED: MORPHINE SULFATE INJ 4 MG/ML DISP.SYRIN IV PRN (16:30)
--- NOTE | 2017-02-08 17:06 | NUR ---
CALLED [facility]- DR. HO WAS PAGED.
--- NOTE | 2017-02-08 17:28 | NUR ---
DR LOWE ON THE PHONE WITH DR GEORGIA REED
--- NOTE | 2017-02-08 17:38 | NUR ---
report given to jacob. pt awaiting transfer to floor.
--- NOTE | 2017-02-08 18:30 | NUR ---
STEAM CLEAN MACHINE OPERATOR NOTE Received patient from ER via [facility] as accompanied by ER staff. Patient A/O X3 verbally responsive able to make needs known. Denies any chest pain or discomfort at this time. On tele monitor, SR 85's. IV site intact and patent. F/C intact and draining with dark yellow/cloudy urine. Bed in low locked position. Notified Dr. Xavier about new admission and awaiting for new orders. Will endorse care to next shift.
[2017-02-08] MEDS ORDERED: MORPHINE SULFATE INJ 2 MG/ML DISP.SYRIN IV PRN (19:00)
[2017-02-08] MEDS ORDERED: ENOXAPARIN SODIUM 40 MG/0.4 ML DISP.SYRIN SQ SCH (19:00)
[2017-02-08] MEDS ORDERED: ONDANSETRON HCL/PF 4 MG/2 ML VIAL IVP PRN (19:00)
[2017-02-08] MEDS ORDERED: MAGNESIUM HYDROXIDE 30 ML UDC PO PRN (19:00)
[2017-02-08] MEDS ORDERED: Z GUARD REMEDY 2 OZ OINT TP PRN (19:00)
[2017-02-08] MEDS ORDERED: NITROGLYCERIN 0.4 MG/TAB BOTTLE SL PRN (19:00)
[2017-02-08] MEDS ORDERED: MAG HYDROX/AL HYDROX/SIMETH 30 ML UDC PO PRN (19:00)
[2017-02-08] MEDS ORDERED: ACETAMINOPHEN 325 MG TABLET PO PRN (19:00)
[2017-02-08] MEDS ORDERED: ZOLPIDEM TARTRATE 5 MG TABLET PO PRN (19:00)
[2017-02-08] MEDS ORDERED: HYDROCODONE/APAP 5/325MG 1 EACH TABLET PO PRN (19:00)
[2017-02-08 19:08] VITALS: BP 124/81
--- NOTE | 2017-02-08 19:40 | NUR ---
RN OPENING NOTES RECEIVED REPORT FROM SUKHWINDER RNKEREN. FOUND Pt ASLEEP IN BED. EQUAL CHEST RISE AND FALL. ON TELE SR 80's. Pt IS A/OX3, VERBAL , ABLE TO MAKE NEEDS KNOWN. NO S/S OF ACUTE DISTRESS OR SOB NOTED. IV ACCESS ON LAC #18G. SAFETY MEASURES IN PLACE. BED LOW, LOCKED, HOB ELEVATED, SIDE RAILS UP, CALL LIGHT AND BEDSIDE TABLE WITHIN REACH. WILL CONTINUE TO MONITOR Pt THROUGHOUT THE NIGHT FOR SAFETY.
[2017-02-08 20:00] VITALS: BP 181/96
[2017-02-08] MEDS ORDERED: CEFTRIAXONE 1 G in IV D5W 50 ML IV SCH (20:00)
--- NOTE | 2017-02-08 20:00 | NUR ---
RN NOTES DID NOT ADMINISTER ROCEPHIN IV @1999. WAS ALREADY GIVEN IN THE ER BEFORE ADMISSION TO [facility]. WILL ENDORSE TO DAYSHIFT RN.
[2017-02-08] MEDS ORDERED: ENOXAPARIN SODIUM 40 MG/0.4 ML DISP.SYRIN SQ ONE (20:10)
[2017-02-08] MEDS ORDERED: METOPROLOL TARTRATE 25 MG TABLET ONE (20:10)
[2017-02-08] MEDS: METOPROLOL TARTRATE 25 MG TABLET PO SCH (20:27)
[2017-02-08] MEDS ORDERED: IV 1/2NS 1000 ML 1,000 ML IV ONE (21:34)
[2017-02-08] MEDS: IV 1/2NS 1000 ML 1,000 ML IV PRN (22:04)
--- NOTE | 2017-02-08 22:30 | NUR ---
RN NOTES SPOKE WITH DR REVELES ON THE PHONE. NOTIFIED HIM ABOUT Pt's CRITICAL TROP LEVEL OF 0.416. Pt IS ASYMPTOMATIC, NO C/O CHEST PAINS. ORDER REPEAT TROP TEST IN THE AM.
[2017-02-09] VITALS: BP 119/79
[2017-02-09] MEDS ORDERED: VANCOMYCIN HCL 250 MG CAPSULE PO SCH
[2017-02-09] MEDS ORDERED: VANCOMYCIN HCL 125 MG/2.5 ML ORAL.SUSP ONE (00:30)
[2017-02-09 04:00] VITALS: BP 121/74
--- NOTE | 2017-02-09 04:45 | NUR ---
RN NOTES SUPERVISOR PRECISION OPTICAL ELEMENTS FOUND KURTZ CATHETER OUT OF Pt's PENIS, AND FOUND BLOOD ON THE DIAPER. WILL WAIT UNTIL BLEEDING HAS STOPPED AND THE TRAUMA AROUND THE TIP OF THE PENIS HAS SUBSIDED TO INSERT A NEW KURTZ CATHETER IN.
--- NOTE | 2017-02-09 05:06 | NUR ---
RN NOTES WAS INFORMED BY THE NURSE METHODS AND PROCEDURES ANALYST THAT THE VANCOMYCIN HCL 500MG ORAL GRAPE SOLUTION WAS ALL OUT WITH HER. THE LAST 4 WAS GIVEN FOR THE 0000 TIME. WILL CALL PHARMACY WHEN THEY OPEN TO INFORM THEM OF THE SITUATION. WILL ENDORSE TO DAYSHIFT RN ABOUT GIVING THE MED ONCE PHARMACY HAS VERIFIED IT AND IS AVAILABLE TO GIVE.
[2017-02-09] MEDS ORDERED: METOPROLOL TARTRATE 25 MG TABLET ONE (05:28)
[2017-02-09] MEDS ORDERED: HYDROCODONE/APAP 5/325MG 1 EACH TABLET ONE (06:21)
--- NOTE | 2017-02-09 06:30 | NUR ---
RN NOTES Pt IS REFUSING TO HAVE NEW KURTZ CATHETER INSERTED. Pt SAID THAT HE DOES NOT WANT THE HOSPITAL KURTZ PUT IN BECAUSE HE DOESN'T TRUST IT SINCE IT CAME OUT IN THE MIDDLE OF THE NIGHT WHILE HE WAS SLEEPING. Pt IS ALSO REQUESTING A MORE EXPERIENCED NURSE WHO IS AN EXPERT IN PUTTING IN FOLEYS TO DO IT FOR HIM. Pt SAID TO CALL HIS SON DARLING AND TO TELL HIM TO GET THE PERSON WHO DOES HIS FOLEYS & TO BRING ONE FROM HIS HOUSE AND TO GET HIM TO COME TO THE HOSPITAL AND INSERT THE KURTZ FOR HIM. I TRIED EXPLAINING TO THE Pt THAT I CAN PUT A KURTZ IN NOW FOR HIM, BUT THE Pt WAS VERY ADAMANT THAT I DO HE SAYS AND CALL HIS SON FIRST. I CALLED Pt's SON DARLING , BUT NO ANSWER, LEFT A VOICEMAIL EXPLAINING THE SITUATION. WILL ENDORSE TO DAYSHIFT RN ABOUT THE SITUATION.
--- NOTE | 2017-02-09 06:38 | NUR ---
RN CLOSING NOTES NO SIGNIFICANT CHANGES DURING THE SHIFT. ALL NEEDS MET AND ATTENDED TO. NO BOWEL MOVEMENT DURING THE SHIFT. SAFETY MEASURES IN PLACE. WILL ENDORSE TO DAYSHIFT RN FOR Pt's MAHAD.
--- NOTE | 2017-02-09 07:15 | NUR ---
CDL PROGRAM COORDINATOR NOTES RECEIVED PATIENT IN BED, AWAKE, A/O X2. ON TELE MONITOR SINUS RHYTHM HR 77. IVF 1/2 NS INFUSING AT 75ML/HR. NO C/O PAIN AT THIS TIME. PER NIGHT RN, KURTZ CATH WAS DISLODGED LAST NIGHT, WILL RE INSERT KURTZ. CALL LIGHT WITHIN REACH. WILL CONT TO MONITOR.
[2017-02-09] MEDS: METOPROLOL TARTRATE 25 MG TABLET PO SCH ×2 (07:30→18:38)
[2017-02-09 08:00] VITALS: BP 146/77
[2017-02-09] MEDS: ASPIRIN 81 MG TAB.CHEW PO SCH (08:02)
[2017-02-09] MEDS: PANTOPRAZOLE 40 MG TABLET.DR PO SCH (08:03)
[2017-02-09] MEDS: CHOLECALCIFEROL 1,000 UNIT TABLET (VIT D3) PO SCH (08:03)
[2017-02-09 08:27] LABS: BASOPHILS % (AUTO) 0.7 % (0.0-2.0); EOSINOPHILS % (AUTO) 1.2 % (0.0-6.0); HEMATOCRIT 35 % (39-51); HEMOGLOBIN 12.2 g/dL (13.5-17.5); LYMPHOCYTES % (AUTO) 13.1 % (20.0-44.0); MEAN CORPUSCULAR HEMOGLOBIN 30 PG (26.0-33.0); MEAN CORPUSCULAR HGB CONC 35 g/dl (31.0-36.0); MEAN CORPUSCULAR VOLUME 87 fL (80-96); MONOCYTES % (AUTO) 14.7 % (2.0-12.0); NEUTROPHILS % (AUTO) 70.3 % (43.0-81.0); PLATELET COUNT (AUTO) 237 /CMM (150-450); RDW COEFFICIENT OF VARIATION 14.9 (11.5-15.0); RED BLOOD CELL COUNT(AUTO) 4.06 MIL/uL (4.5-6.0)
[2017-02-09 08:28] LABS: BASOPHILS # (AUTO) 0.1 /CMM (0.0-0.2); EOSINOPHILS # (AUTO) 0.1 /CMM (0.0-0.7); LYMPHOCYTES # (AUTO) 1.3 /CMM (0.8-4.8); MONOCYTES # (AUTO) 1.5 /CMM (0.1-1.30)
[2017-02-09 08:51] LABS: B-TYPE NATRIURETIC PEPTIDE 3345 PG/ML (0-125); CALCIUM, SERUM 8.5 mg/dL (8.5-10.1); CARBON DIOXIDE 21 mmol/L (21-32); CHLORIDE 109 mmol/L (98-107); CHOLESTEROL 142 mg/dL (<200); CREATININE 1.6 mg/dL (0.6-1.3); GLUCOSE 107 mg/dL (74-106); HDL CHOLESTEROL 65 mg/dL (40-60); LDL 66 mg/dL (0-99); MAGNESIUM 1.9 mg/dL (1.8-2.4); PHOSPHORUS 3.8 mg/dL (2.5-4.9); POTASSIUM 4.4 mmol/L (3.5-5.1); SODIUM SERUM 140 mmol/L (136-145); THYROID STIMULATING HORMONE 1.503 uIU/mL (0.358-3.74); TRIGLYCERIDES 49 mg/dL (30-150); UREA NITROGEN, BLOOD 31 mg/dL (7-18)
[2017-02-09] MEDS: VANCOMYCIN HCL 125 MG/2.5 ML ORAL.SUSP PO SCH ×4 (10:39→21:04)
[2017-02-09] MEDS: IV 1/2NS 1000 ML 1,000 ML IV PRN ×2 (10:44→21:05)
[2017-02-09 12:00] VITALS: BP 95/53
[2017-02-09 16:00] VITALS: BP 100/55
[2017-02-09] MEDS ORDERED: SECONDARY IV SET 1 EA INFUS.SET MC ONE (16:37)
[2017-02-09] MEDS: CEFTRIAXONE 1 G in IV D5W 50 ML IV SCH (16:38)
--- NOTE | 2017-02-09 18:44 | NUR ---
DIAGNOSTIC MEDICAL SONOGRAPHER CLOSING NOTES PATIENT IN BED, NOT IN DISTRESS. KURTZ CATH INTACT, DRAINING TO GRAVITY, NO C/O BLADDER DISCOMFORT. ON ANTIBIOTIC WITH NO ADVERSE REACTION, AFEBRILE. NO BOWEL MOVEMENT TODAY, NO DIARRHEA. FOR STOOL C-DIFF TEST, AND US KIDNEY ORDERED. WILL ENDORSE TO CURRICULUM COORDINATOR RN FOR CONTINUITY OF CARE.
--- NOTE | 2017-02-09 19:33 | NUR ---
RN NOTE; RECEIVED PT IN BED AWAKE AND RESPONSIVE, . BREATHING EVENLY. NO SOB, NO DISTRESS. SKIN WARM AND DRY . NO S/S OR C/O PAIN OR DISCOMFORT. SR ON TELE MONITOR. F/C IN PLACE. DRAINING CLEAR YELLOW URINE. DENIED CHEST PAIN. CALL LIGHT WITHIN REACH. WILL CONT TO MONITOR
[2017-02-09 20:00] VITALS: BP 98/58
[2017-02-09] MEDS ORDERED: ENOXAPARIN SODIUM 30 MG/0.3 ML DISP.SYRIN SQ SCH (21:00)
[2017-02-10] VITALS: BP 105/65
[2017-02-10 04:00] VITALS: BP 111/60
--- NOTE | 2017-02-10 06:45 | NUR ---
RN NOTE; PT IN BED AWAKE AND ALERT. BREATHING EVENLY. NO SOB. NO DISTRESS. NO C/O CHEST PAIN. NO ACUTE CHANGES OVER THE NIGHT. NO EPISODE OF DIARRHEA. NO C/O ABD. PAIN. ON TELE MONITOR READING SR/ SB W/ OCCASIONAL ARRHYTHMIA. F/C IN PLACE . NEEDS ATTENDED .ASSISTED W/ ADLS . CALL LIGHT WITHIN REACH, WILL CONT TO MONITOR AND WILL ENDORSE TO AM SHIFT FOR MAHAD/
[2017-02-10 06:57] LABS: BASOPHILS # (AUTO) 0.1 /CMM (0.0-0.2); BASOPHILS % (AUTO) 0.7 % (0.0-2.0); EOSINOPHILS # (AUTO) 0.3 /CMM (0.0-0.7); EOSINOPHILS % (AUTO) 3.9 % (0.0-6.0); HEMATOCRIT 33 % (39-51); HEMOGLOBIN 10.9 g/dL (13.5-17.5); LYMPHOCYTES # (AUTO) 1.6 /CMM (0.8-4.8); LYMPHOCYTES % (AUTO) 22.1 % (20.0-44.0); MEAN CORPUSCULAR HEMOGLOBIN 29 PG (26.0-33.0); MEAN CORPUSCULAR HGB CONC 33 g/dl (31.0-36.0); MEAN CORPUSCULAR VOLUME 87 fL (80-96); NEUTROPHILS # (AUTO) 4.4 /CMM (1.8-8.9); NEUTROPHILS % (AUTO) 59.3 % (43.0-81.0); PLATELET COUNT (AUTO) 229 /CMM (150-450); RED BLOOD CELL COUNT(AUTO) 3.74 MIL/uL (4.5-6.0); WHITE BLOOD COUNT (AUTO) 7.4 K/uL (4.3-11.0)
[2017-02-10] MEDS: METOPROLOL TARTRATE 25 MG TABLET PO SCH ×2 (07:00→18:02)
[2017-02-10 07:14] LABS: TROPONIN I 0.331 ng/mL (0.00-0.056)
--- NOTE | 2017-02-10 07:15 | NUR ---
TOUCH UP CARVER CLOSING NOTES PATIENT IN BED, A/O X3. ON TELE MONITOR SINUS RHYTHM WITH OCCASIONAL ARRHYTHMIA HR 80. KURZT CATH DRAINING TO GRAVITY. FOR US KIDNEY TODAY. CALL LIGHT WITHIN REACH. WILL CONT TO MONITOR.
[2017-02-10 07:18] LABS: ALANINE AMINOTRANSFERASE 21 U/L (12-78); ALBUMIN 2.3 g/dL (3.4-5.0); ALKALINE PHOSPHATASE 59 U/L (46-116); ASPARTATE AMINOTRANSFERASE 18 U/L (15-37); BILIRUBIN,TOTAL 0.3 mg/dL (0.2-1.0); CALCIUM, SERUM 8.4 mg/dL (8.5-10.1); CARBON DIOXIDE 24 mmol/L (21-32); CHLORIDE 110 mmol/L (98-107); CREATININE 1.5 mg/dL (0.6-1.3); GLUCOSE 81 mg/dL (74-106); MAGNESIUM 1.8 mg/dL (1.8-2.4); PHOSPHORUS 4.1 mg/dL (2.5-4.9); POTASSIUM 4.3 mmol/L (3.5-5.1); SODIUM SERUM 142 mmol/L (136-145); TOTAL PROTEIN, SERUM 5.3 g/dL (6.4-8.2); UREA NITROGEN, BLOOD 28 mg/dL (7-18)
[2017-02-10 08:00] VITALS: BP 112/64
[2017-02-10] MEDS: PANTOPRAZOLE 40 MG TABLET.DR PO SCH (08:29)
[2017-02-10] MEDS: CHOLECALCIFEROL 1,000 UNIT TABLET (VIT D3) PO SCH (08:41)
[2017-02-10] MEDS: ASPIRIN 81 MG TAB.CHEW PO SCH (08:41)
[2017-02-10] MEDS: VANCOMYCIN HCL 125 MG/2.5 ML ORAL.SUSP PO SCH ×3 (08:51→17:07)
--- NOTE | 2017-02-10 10:52 | NUR ---
WOUND CARE CONSULT: PT PRESENTS WITH RESOLVING REDNESS TO PERINEAL, PERIANAL AREAS. ALL SKIN PROTECTION MEASURES IN PLACE. DISCUSSED WITH NURSING STAFF. PT ON ANALY ISOFLEX LOW AIRLOSS BED. WILL SEE PRN. AWARE OF PT'S LONG TOENAILS. IN AGREEMENT WITH PLAN OF CARE. Addendum: 02/10/17 at 1103 by PAUL PLASENCIA WNDNU Amended: Links added.
[2017-02-10] MEDS ORDERED: CEPH-570 PO (12:28)
--- NOTE | 2017-02-10 12:29 | NUR ---
PATIENT IS SEEN BY DR. GEORGIA SOLIS, PATIENT TO BE DISCHARGED HOME ORDERED.
--- NOTE | 2017-02-10 15:15 | NUR ---
US RENAL RESULTED. INCIDENTALLY NOTED BILATERAL PLEURAL EFFUSION, AND 1.5CM HEPATIC CYST. INFORMED MD IF STILL SAFE TO DISCHARGE PATIENT HOME. PER DR. GEORGIA SOLIS, OK TO DISCHARGE HOME.
[2017-02-10 16:00] VITALS: BP 128/67
--- NOTE | 2017-02-10 16:09 | NUR ---
CALLED [facility] [phone], SPOKE TO JUAN-PHARMACIST FOR NEW PRESCRIPTION.
[2017-02-10] MEDS: CEFTRIAXONE 1 G in IV D5W 50 ML IV SCH (17:06)
[2017-02-10 18:02] VITALS: BP 128/67
--- NOTE | 2017-02-10 18:36 | NUR ---
MS RN DISCHARGED PATIENT HAS BEEN CLEARED FOR DISCHARGE HOME BY . PATIENT V/S REMAINS STABLE, NO EPISODE OF CHEST PAIN DURING THE SHIFT. AFEBRILE. SKIN INTACT. IV IN LEFT AC REMOVED, GAUZE APPLIED. DISCHARGE INSTRUCTION GIVEN TO THE SON-RUSTAM, VERBALIZED UNDERSTANDING. BELONGINGS CHECKED BY POWER STATION OPERATOR. KURTZ CATH REMAIN IN PLACE, DRAINAGE BAG EMPTIED AND OBTAINED 1600ML URINE CLEAR AND YELLOW URINE, NO SEDIMENT, NO HEMATURIA NOTED. PATIENT LEFT HOSP IN STABLE CONDITION VIA PRIVATE CAR, ACCOMPANIED BY JORGE.
== END 2017-02-10 18:30 | disposition home or self-care (01) | DRG 280 ==
LOC: ER 13:57 → TELE 15:52 → MED 02-10 10:30
DX: I21.4 Non-ST elevation (NSTEMI) myocardial infarction (principal); N17.0 Acute kidney failure with tubular necrosis; E43 Unspecified severe protein-calorie malnutrition; R64 Cachexia; N39.0 Urinary tract infection, site not specified; N13.8 Other obstructive and reflux uropathy; J90 Pleural effusion, not elsewhere classified; N13.6 Pyonephrosis; A04.7 Enterocolitis due to Clostridium difficile; I25.10 Atherosclerotic heart disease of native coronary artery without angina pectoris; I12.9 Hypertensive chronic kidney disease with stage 1 through stage 4 chronic kidney disease, or unspecified chronic kidney disease; N18.9 Chronic kidney disease, unspecified; B96.20 Unspecified Escherichia coli [E. coli] as the cause of diseases classified elsewhere; D64.9 Anemia, unspecified; Z86.19 Personal history of other infectious and parasitic diseases; Z87.440 Personal history of urinary (tract) infections; E88.09 Other disorders of plasma-protein metabolism, not elsewhere classified; Z68.24 Body mass index [BMI] 24.0-24.9, adult; N32.0 Bladder-neck obstruction; B96.4 Proteus (mirabilis) (morganii) as the cause of diseases classified elsewhere; I45.10 Unspecified right bundle-branch block; K44.9 Diaphragmatic hernia without obstruction or gangrene
CPT/HCPCS: 36415; 76770-TC; 76856-TC; 80048-TC; 80053-TC; 80061-TC; 80076-TC; 81000-TC; 83605-TC; 83690-TC; 83735-TC; 83880; 84100-TC; 84443-TC; 84484-TC; 85025-TC; 87040-TC; 87081-TC; 87086-TC; 87186-TC; A4606; J0696; J1650; J2270; J3490; J7040; J7060; Z7610

== ENCOUNTER 2017-03-03 01:29 | Inpatient (IN) | payer MEDICARE ==
[~2017-03-03] VITALS: Ht 160 cm; Wt 54.4 kg
[~2017-03-03 01:29] MED LIST changes: +CEPH-570 PO; -SULF1TAB48 PO
[2017-03-03] MEDS ORDERED: IV NS 0.9% 1,000 ML ONE (01:56)
[2017-03-03] MEDS ORDERED: IV SET PRIMARY 1 EA INFUS.SET MC ONE (01:56)
[2017-03-03] MEDS ORDERED: IV NS 0.9% 1,000 ML BAG IV ONE (02:00)
[2017-03-03 02:33] LABS: BASOPHILS % (AUTO) 0.3 % (0.0-2.0); EOSINOPHILS # (AUTO) 0.1 /CMM (0.0-0.7); EOSINOPHILS % (AUTO) 0.7 % (0.0-6.0); HEMATOCRIT 42 % (39-51); HEMOGLOBIN 13.6 g/dL (13.5-17.5); LYMPHOCYTES # (AUTO) 1.2 /CMM (0.8-4.8); LYMPHOCYTES % (AUTO) 9.9 % (20.0-44.0); MEAN CORPUSCULAR HEMOGLOBIN 29 PG (26.0-33.0); MEAN CORPUSCULAR HGB CONC 33 g/dl (31.0-36.0); MEAN CORPUSCULAR VOLUME 88 fL (80-96); MONOCYTES % (AUTO) 8.3 % (2.0-12.0); NEUTROPHILS % (AUTO) 80.8 % (43.0-81.0); PLATELET COUNT (AUTO) 377 /CMM (150-450); RDW COEFFICIENT OF VARIATION 14.6 (11.5-15.0); RED BLOOD CELL COUNT(AUTO) 4.76 MIL/uL (4.5-6.0); WHITE BLOOD COUNT (AUTO) 12.4 K/uL (4.3-11.0)
[2017-03-03 02:44] LABS: CALCIUM, SERUM 8.6 mg/dL (8.5-10.1); CARBON DIOXIDE 29 mmol/L (21-32); CHLORIDE 103 mmol/L (98-107); CREATININE 1.5 mg/dL (0.6-1.3); GLUCOSE 115 mg/dL (74-106); SODIUM SERUM 138 mmol/L (136-145); UREA NITROGEN, BLOOD 18 mg/dL (7-18)
[2017-03-03 02:47] LABS: PROTHROMBIN TIME 10.7 SECS (9.5-12.7)
[2017-03-03 02:50] LABS: ALANINE AMINOTRANSFERASE 16 U/L (12-78); ALBUMIN 2.7 g/dL (3.4-5.0); ALKALINE PHOSPHATASE 73 U/L (46-116); ASPARTATE AMINOTRANSFERASE 11 U/L (15-37); BILIRUBIN,DIRECT 0.1 mg/dL (0.0-0.2); BILIRUBIN,TOTAL 0.4 mg/dL (0.2-1.0); LIPASE 55 U/L (73-393); TOTAL PROTEIN, SERUM 6.1 g/dL (6.4-8.2)
[2017-03-03 02:51] LABS: APPEARANCE,URINE CLOUDY (CLEAR); BILIRUBIN,URINE NEGATIVE (NEGATIVE); BLOOD, URINE 2+ Ery/uL (NEGATIVE); COLOR,URINE YELLOW (YELLOW); KETONES,URINE 1+ (NEGATIVE); LEUKOCYTE ESTERASE ,URINE 2+ (NEGATIVE); NITRITE, URINE POSITIVE (NEGATIVE); PH,URINE 5.5 (5.0-8.0); PROTEIN,URINE TRACE mg/dl (NEGATIVE); UGLUCOSE NEGATIVE (NEGATIVE); UROBILINOGEN,URINE 0.2 EU/dL (0.2)
[2017-03-03 03:00] LABS: BACTERIA,URINE Moderate /HPF (None Seen); SQUAMOUS EPITHELIAL CELL,UR Few /HPF (None Seen)
[2017-03-03] MEDS ORDERED: IV NS 0.9% 1,000 ML IV ONE (03:30)
[2017-03-03] MEDS ORDERED: Z GUARD REMEDY 2 OZ OINT TP PRN (03:30)
[2017-03-03] MEDS ORDERED: ONDANSETRON HCL/PF 4 MG/2 ML VIAL IVP PRN (03:30)
[2017-03-03] MEDS ORDERED: ACETAMINOPHEN 325 MG TABLET PO PRN (03:30)
[2017-03-03] MEDS ORDERED: CEFTRIAXONE 1 G in IV D5W 50 ML IV SCH (03:30)
[2017-03-03] MEDS ORDERED: ZOLPIDEM TARTRATE 5 MG TABLET PO PRN (03:30)
[2017-03-03] MEDS ORDERED: HYDROCODONE/APAP 5/325MG 1 EACH TABLET PO PRN (03:30)
[2017-03-03 04:00] VITALS: BP 125/69
[2017-03-03 04:03] VITALS: BP 125/69
[2017-03-03] MEDS ORDERED: IV D5W 50 ML IV ONE (04:30)
[2017-03-03] MEDS ORDERED: CEFTRIAXONE 1 G VIAL ONE (04:30)
[2017-03-03] MEDS ORDERED: IV SET PRIMARY PUMP SET 1 EA INFUS.SET MC ONE (04:38)
[2017-03-03] MEDS ORDERED: IV NS 0.9% 250 ML IV ONE (04:39)
[2017-03-03 08:00] VITALS: BP 120/68
[2017-03-03] MEDS ORDERED: VANCOMYCIN 500 MG VIAL PO SCH ×4 (09:00)
[2017-03-03] MEDS ORDERED: PSYLLIUM SEED 1 PKT PACKET PO SCH (09:00)
[2017-03-03] MEDS: ASPIRIN 81 MG TAB.CHEW PO SCH (09:27)
[2017-03-03] MEDS: CHOLECALCIFEROL 1,000 UNIT TABLET (VIT D3) PO SCH (09:27)
[2017-03-03 16:00] VITALS: BP 119/57
[2017-03-03] MEDS: VANCOMYCIN HCL 125 MG/2.5 ML ORAL.SUSP PO SCH ×2 (17:47→20:27)
[2017-03-03 20:00] VITALS: BP 122/78
[2017-03-03 22:00] VITALS: BP 122/78
[2017-03-04] MEDS ORDERED: CEFTRIAXONE 1 G in IV D5W 50 ML IV SCH (05:00)
[2017-03-04 08:00] VITALS: BP 94/56
[2017-03-04 08:19] LABS: BASOPHILS % (AUTO) 0.4 % (0.0-2.0); EOSINOPHILS # (AUTO) 0.2 /CMM (0.0-0.7); EOSINOPHILS % (AUTO) 2.1 % (0.0-6.0); HEMATOCRIT 36 % (39-51); HEMOGLOBIN 12.1 g/dL (13.5-17.5); LYMPHOCYTES # (AUTO) 1.8 /CMM (0.8-4.8); LYMPHOCYTES % (AUTO) 18.6 % (20.0-44.0); MEAN CORPUSCULAR HEMOGLOBIN 29 PG (26.0-33.0); MEAN CORPUSCULAR HGB CONC 34 g/dl (31.0-36.0); MEAN CORPUSCULAR VOLUME 87 fL (80-96); MONOCYTES % (AUTO) 10.6 % (2.0-12.0); NEUTROPHILS # (AUTO) 6.5 /CMM (1.8-8.9); NEUTROPHILS % (AUTO) 68.3 % (43.0-81.0); PLATELET COUNT (AUTO) 348 /CMM (150-450); RDW COEFFICIENT OF VARIATION 14.4 (11.5-15.0); RED BLOOD CELL COUNT(AUTO) 4.14 MIL/uL (4.5-6.0); WHITE BLOOD COUNT (AUTO) 9.6 K/uL (4.3-11.0)
[2017-03-04 08:34] LABS: CALCIUM, SERUM 8.3 mg/dL (8.5-10.1); CARBON DIOXIDE 27 mmol/L (21-32); CHLORIDE 109 mmol/L (98-107); CREATININE 1.1 mg/dL (0.6-1.3); GLUCOSE 88 mg/dL (74-106); MAGNESIUM 1.8 mg/dL (1.8-2.4); PHOSPHORUS 3.2 mg/dL (2.5-4.9); POTASSIUM 3.8 mmol/L (3.5-5.1); SODIUM SERUM 142 mmol/L (136-145); UREA NITROGEN, BLOOD 22 mg/dL (7-18)
[2017-03-04 08:37] LABS: CHOLESTEROL 109 mg/dL (<200); HDL CHOLESTEROL 36 mg/dL (40-60); LDL 61 mg/dL (0-99); TRIGLYCERIDES 63 mg/dL (30-150)
[2017-03-04] MEDS: ASPIRIN 81 MG TAB.CHEW PO SCH (09:36)
[2017-03-04] MEDS: ACIDOPHILUS/BULGARICUS 1 EACH TAB.CHEW PO SCH ×3 (09:36→17:53)
[2017-03-04] MEDS: CHOLECALCIFEROL 1,000 UNIT TABLET (VIT D3) PO SCH (09:37)
[2017-03-04] MEDS: VANCOMYCIN HCL 125 MG/2.5 ML ORAL.SUSP PO SCH ×3 (09:37→20:22)
[2017-03-04] MEDS ORDERED: PIPERACILLIN /TAZOBACTAM 4.5 G in IV D5W 50 ML IV SCH (15:30)
[2017-03-04 16:00] VITALS: BP 108/67
[2017-03-04] MEDS ORDERED: PIPERACILLIN /TAZOBACTAM 2.25 G in IV D5W 50 ML IV SCH (16:00)
[2017-03-04 16:05] VITALS: BP 108/67
[2017-03-04] MEDS ORDERED: IV SET PRIMARY PUMP SET 1 EA INFUS.SET MC ONE (17:45)
[2017-03-04] MEDS: CEFTRIAXONE 1 G in IV D5W 50 ML IV SCH (19:34)
[2017-03-04 20:00] VITALS: BP 107/62
[2017-03-04 22:00] VITALS: BP 107/62
[2017-03-05 08:00] VITALS: BP 106/67
[2017-03-05] MEDS: ASPIRIN 81 MG TAB.CHEW PO SCH (09:38)
[2017-03-05] MEDS: CHOLECALCIFEROL 1,000 UNIT TABLET (VIT D3) PO SCH (09:38)
[2017-03-05] MEDS: ACIDOPHILUS/BULGARICUS 1 EACH TAB.CHEW PO SCH ×3 (09:38→17:20)
[2017-03-05] MEDS: ENOXAPARIN SODIUM 40 MG/0.4 ML DISP.SYRIN SQ SCH (09:41)
[2017-03-05] MEDS: VANCOMYCIN HCL 125 MG/2.5 ML ORAL.SUSP PO SCH ×4 (09:45→22:24)
[2017-03-05 15:51] VITALS: BP 114/65
[2017-03-05 16:00] VITALS: BP 114/65
[2017-03-05] MEDS: CEFTRIAXONE 1 G in IV D5W 50 ML IV SCH (17:21)
[2017-03-05] MEDS: FIDAXOMICIN 200 MG TABLET PO SCH (19:15)
[2017-03-05 20:00] VITALS: BP 125/66
[2017-03-06 08:00] VITALS: BP 120/81
[2017-03-06] MEDS: VANCOMYCIN HCL 125 MG/2.5 ML ORAL.SUSP PO SCH ×3 (08:42→16:05)
[2017-03-06] MEDS: ACIDOPHILUS/BULGARICUS 1 EACH TAB.CHEW PO SCH ×3 (08:42→16:05)
[2017-03-06] MEDS: FIDAXOMICIN 200 MG TABLET PO SCH ×2 (08:42→16:05)
[2017-03-06] MEDS: ASPIRIN 81 MG TAB.CHEW PO SCH (08:43)
[2017-03-06] MEDS: CHOLECALCIFEROL 1,000 UNIT TABLET (VIT D3) PO SCH (08:43)
[2017-03-06] MEDS: ENOXAPARIN SODIUM 40 MG/0.4 ML DISP.SYRIN SQ SCH (08:50)
[2017-03-06 16:00] VITALS: BP 109/60
[2017-03-06] MEDS: CEFTRIAXONE 1 G in IV D5W 50 ML IV SCH (17:09)
== END 2017-03-06 18:45 | disposition home or self-care (01) | DRG 371 ==
LOC: ER 01:29 → MED 03:30
PROVIDERS: ADMIT Family Medicine; ATTEND Family Medicine
DX: A04.7 Enterocolitis due to Clostridium difficile (principal); N17.0 Acute kidney failure with tubular necrosis; N39.0 Urinary tract infection, site not specified; E86.0 Dehydration; I25.10 Atherosclerotic heart disease of native coronary artery without angina pectoris; B96.5 Pseudomonas (aeruginosa) (mallei) (pseudomallei) as the cause of diseases classified elsewhere; Z79.82 Long term (current) use of aspirin; I10 Essential (primary) hypertension; Z86.19 Personal history of other infectious and parasitic diseases; Z87.440 Personal history of urinary (tract) infections; K40.90 Unilateral inguinal hernia, without obstruction or gangrene, not specified as recurrent
CPT/HCPCS: 36415; 80048-TC; 80061-TC; 80076-TC; 81000-TC; 83690-TC; 83735-TC; 84100-TC; 85025-TC; 85730-TC; 87081-TC; 87086-TC; 87186-TC; 97001-TC; 97116-TC; 97530-TC; J0696; J1650; J2543; J3370; J7030; J7050; J7060; Z7610

== ENCOUNTER 2017-04-02 15:26 | Inpatient (IN) | payer MEDICARE ==
[~2017-04-02] VITALS: Ht 157.5 cm; Wt 61.7 kg
[~2017-04-02 15:26] MED LIST changes: -CEPH-570 PO; -PSYL3.4P6 PO; -VANC500V PO
--- NOTE | 2017-04-02 15:47 | NUR ---
TO ED BED 1 AN 86 Y/O MALE BIB SON, PER SON STATES "PT WITH DIARRHEA FOR 3 DAYS NOW.PATIENT WITH HX OF C-DIFF. PATIENT NOTED WITH KURTZ CATHETER IN PLACED.VSS. AFEBRILE. INITIATED COMFORT MEASURES. GOWNED. VS MONITORING ON. ANTICIPATED NEEDS. AWAITING FOR ER MD GASTELUM.
[2017-04-02 16:10] LABS: BASOPHILS # (AUTO) 0.1 /CMM (0.0-0.2); BASOPHILS % (AUTO) 0.5 % (0.0-2.0); EOSINOPHILS % (AUTO) 0.1 % (0.0-6.0); HEMATOCRIT 41 % (39-51); HEMOGLOBIN 13.4 g/dL (13.5-17.5); LYMPHOCYTES # (AUTO) 0.6 /CMM (0.8-4.8); MEAN CORPUSCULAR HEMOGLOBIN 28 PG (26.0-33.0); MEAN CORPUSCULAR HGB CONC 33 g/dl (31.0-36.0); MEAN CORPUSCULAR VOLUME 87 fL (80-96); MONOCYTES # (AUTO) 1.8 /CMM (0.1-1.30); MONOCYTES % (AUTO) 10.9 % (2.0-12.0); NEUTROPHILS # (AUTO) 13.6 /CMM (1.8-8.9); NEUTROPHILS % (AUTO) 84.5 % (43.0-81.0); PLATELET COUNT (AUTO) 365 /CMM (150-450); RDW COEFFICIENT OF VARIATION 13.9 (11.5-15.0); RED BLOOD CELL COUNT(AUTO) 4.76 MIL/uL (4.5-6.0); WHITE BLOOD COUNT (AUTO) 16.1 K/uL (4.3-11.0)
--- NOTE | 2017-04-02 16:13 | NUR ---
IV ACCESSED TO RFA 20.BLOOD SAMPLE SENT TO LAB
--- NOTE | 2017-04-02 16:13 | NUR ---
URINE SAMPLE SENT
[2017-04-02 16:20] LABS: APPEARANCE,URINE SL CLOUDY (CLEAR); BILIRUBIN,URINE NEGATIVE (NEGATIVE); BLOOD, URINE 2+ Ery/uL (NEGATIVE); COLOR,URINE YELLOW (YELLOW); KETONES,URINE 2+ (NEGATIVE); LEUKOCYTE ESTERASE ,URINE 3+ (NEGATIVE); NITRITE, URINE POSITIVE (NEGATIVE); PH,URINE 5.5 (5.0-8.0); PROTEIN,URINE 1+ mg/dl (NEGATIVE); UGLUCOSE NEGATIVE (NEGATIVE); UROBILINOGEN,URINE 0.2 EU/dL (0.2)
[2017-04-02 16:27] LABS: BACTERIA,URINE Many /HPF (None Seen); SQUAMOUS EPITHELIAL CELL,UR Few /HPF (None Seen); WBC,URINE 81-100 /HPF (0-3)
[2017-04-02 16:35] LABS: CALCIUM, SERUM 8.7 mg/dL (8.5-10.1); CARBON DIOXIDE 25 mmol/L (21-32); CHLORIDE 104 mmol/L (98-107); CREATININE 1.6 mg/dL (0.6-1.3); GLUCOSE 257 mg/dL (74-106); POTASSIUM 3.8 mmol/L (3.5-5.1); SODIUM SERUM 139 mmol/L (136-145); UREA NITROGEN, BLOOD 24 mg/dL (7-18)
[2017-04-02 16:40] LABS: PROTHROMBIN TIME 10.4 SECS (9.5-12.7)
[2017-04-02 16:41] LABS: ALANINE AMINOTRANSFERASE 13 U/L (12-78); ALBUMIN 2.7 g/dL (3.4-5.0); ALKALINE PHOSPHATASE 90 U/L (46-116); ASPARTATE AMINOTRANSFERASE 13 U/L (15-37); BILIRUBIN,DIRECT 0.1 mg/dL (0.0-0.2); BILIRUBIN,TOTAL 0.3 mg/dL (0.2-1.0); TOTAL PROTEIN, SERUM 6.1 g/dL (6.4-8.2)
--- NOTE | 2017-04-02 16:44 | NUR ---
CALLED NURSING SUP. FOR TELE BED
[2017-04-02 16:56] LABS: TROPONIN I 0.592 ng/mL (0.00-0.056)
[2017-04-02] MEDS ORDERED: ASPIRIN 81 MG TAB.CHEW PO ONE (17:00)
[2017-04-02] MEDS ORDERED: ACETAMINOPHEN ES 500 MG TABLET PO ONE (17:00)
[2017-04-02] MEDS ORDERED: IV NS 0.9% 1,000 ML BAG IV ONE ×3 (17:00→18:00)
--- NOTE | 2017-04-02 17:00 | NUR ---
[facility] PAGED, TELEPHONE ORDER SUPERVISOR
[2017-04-02] MEDS ORDERED: ACETAMINOPHEN ES 500 MG TABLET ONE (17:11)
[2017-04-02] MEDS ORDERED: ASPIRIN 81 MG TAB.CHEW ONE (17:11)
[2017-04-02] MEDS ORDERED: LACT1CAP74 PO (17:26)
[2017-04-02] MEDS ORDERED: CRAN425C PO (17:26)
[2017-04-02] MEDS ORDERED: CEFEPIME 1 GM in IV D5W 50 ML IV ONE (17:30)
--- NOTE | 2017-04-02 17:38 | NUR ---
REPORT GIVEN TO POOL YARBROUGH FOR CONTINUITY OF CARE
[2017-04-02] MEDS ORDERED: VANCOMYCIN HCL 125 MG/2.5 ML ORAL.SUSP PO SCH (18:00)
[2017-04-02] MEDS ORDERED: ACETAMINOPHEN 325 MG TABLET PO PRN (18:00)
[2017-04-02] MEDS ORDERED: LORAZEPAM INJ 2 MG/ML VIAL IVP PRN (18:00)
[2017-04-02] MEDS ORDERED: ONDANSETRON HCL/PF 4 MG/2 ML VIAL IVP PRN (18:00)
--- NOTE | 2017-04-02 18:10 | NUR ---
SEPTIC REASSESSMENT ENDORSED TO ZENON ECHAVARRIA. IV NS STILL ONGOING AT THIS TIME, PATIENT IS AFEBRILE
[2017-04-02 18:32] LABS: ALANINE AMINOTRANSFERASE 13 U/L (12-78); ALBUMIN 2.1 g/dL (3.4-5.0); ALKALINE PHOSPHATASE 72 U/L (46-116); ASPARTATE AMINOTRANSFERASE 11 U/L (15-37); BILIRUBIN,DIRECT 0.1 mg/dL (0.0-0.2); BILIRUBIN,TOTAL 0.3 mg/dL (0.2-1.0); CALCIUM, SERUM 7.6 mg/dL (8.5-10.1); CARBON DIOXIDE 27 mmol/L (21-32); CHLORIDE 107 mmol/L (98-107); CREATININE 1.3 mg/dL (0.6-1.3); GLUCOSE 157 mg/dL (74-106); POTASSIUM 3.6 mmol/L (3.5-5.1); SODIUM SERUM 140 mmol/L (136-145); TOTAL PROTEIN, SERUM 4.9 g/dL (6.4-8.2); UREA NITROGEN, BLOOD 23 mg/dL (7-18)
[2017-04-02] MEDS: IV NS 0.9% 1,000 ML IV PRN (18:44)
[2017-04-02] MEDS: ASPIRIN 81 MG TAB.CHEW PO SCH (18:44)
[2017-04-02] MEDS: LACTOBACILLUS RHAMNOSUS GG 1 EACH CAP.SPRINK PO SCH (18:45)
[2017-04-02] MEDS: VANCOMYCIN HCL 125 MG/2.5 ML ORAL.SUSP PO SCH ×2 (18:45→23:40)
[2017-04-02] MEDS: CHOLECALCIFEROL 1,000 UNIT TABLET (VIT D3) PO SCH (18:45)
--- NOTE | 2017-04-02 18:45 | NUR ---
KICK BOXER NOTES PATIENT ARRIVED TO UNIT AT 1820. ORIENTED PATIENT TO ROOM AND TO UNIT. PATIENT IS A/OX4. ARRIVED TO UNIT IN STABLE CONDITION. IV IS PATENT AND INTACT. KURTZ CATH PATENT AND INTACT, DRAINING. PATIENT STATES THE KURTZ CATHETER WAS INSERTED AT HIS PCP'S OFFICE A COUPLE OF MONTHS AGO. PATIENT RECEIVED ALL FLUIDS AND IS CURRENTLY RECEIVING NS @ 100ML/HR. VITAL SIGNS STABLE. BP: 111/62, HR:79, SPO2: 96%, TEMP: 98.5, RR: 16. PATIENT ON TELE MONITOR. RHYTHM IS SINUS RHYTHM, SINUS ARRHYTHMIA WITH BUNDLE BRANCH BLOCK. NO S/S OF DISTRESS OR SOB NOTED. CALL LIGHT IS WITHIN REACH. BED IS IN LOWEST, LOCKED POSITION. WILL ENDORSE CARE TO PM SHIFT.
--- NOTE | 2017-04-02 19:35 | NUR ---
RETORT UNLOADER NOTES PATIENT IS A/OX4. IV IS PATENT AND INTACT WITH NS @ 100 ML/HR. KURTZ CATH PATENT AND INTACT, DRAINING. PATIENT STATES THE KURTZ CATHETER WAS INSERTED AT HIS PCP'S OFFICE, HE HAS HAD IT FOR MANY YEARS AND GETS IT RENEWED MONTHLY. PICTURES OF SCABS ON CHEST/ABDOMEN AND FEET WERE TAKEN AND FILED IN THE CHART. DENIES ANY PAIN. ANTIBIOTICS ARE TO BE GIVEN. WILL CONTINUE TO MONITOR PT
[2017-04-02] MEDS: CEFEPIME 1 GM in IV D5W 50 ML IV SCH (19:52)
[2017-04-02 20:00] VITALS: BP 117/57
[2017-04-03] VITALS: BP 100/60
--- NOTE | 2017-04-03 04:43 | NUR ---
STOOL SPECIMEN COLLECT, LAB NOTIFIED
[2017-04-03] MEDS: VANCOMYCIN HCL 125 MG/2.5 ML ORAL.SUSP PO SCH ×3 (05:05→18:08)
[2017-04-03] MEDS: IV NS 0.9% 1,000 ML IV PRN ×2 (05:05→18:08)
[2017-04-03 06:28] LABS: BASOPHILS % (AUTO) 0.2 % (0.0-2.0); EOSINOPHILS # (AUTO) 0.2 /CMM (0.0-0.7); EOSINOPHILS % (AUTO) 1.4 % (0.0-6.0); HEMATOCRIT 35 % (39-51); HEMOGLOBIN 11.8 g/dL (13.5-17.5); LYMPHOCYTES # (AUTO) 1.5 /CMM (0.8-4.8); LYMPHOCYTES % (AUTO) 11.3 % (20.0-44.0); MEAN CORPUSCULAR HEMOGLOBIN 29 PG (26.0-33.0); MEAN CORPUSCULAR HGB CONC 34 g/dl (31.0-36.0); MEAN CORPUSCULAR VOLUME 88 fL (80-96); MONOCYTES # (AUTO) 2.2 /CMM (0.1-1.30); MONOCYTES % (AUTO) 16.6 % (2.0-12.0); NEUTROPHILS # (AUTO) 9.3 /CMM (1.8-8.9); NEUTROPHILS % (AUTO) 70.5 % (43.0-81.0); PLATELET COUNT (AUTO) 279 /CMM (150-450); RDW COEFFICIENT OF VARIATION 14.9 (11.5-15.0); RED BLOOD CELL COUNT(AUTO) 4.02 MIL/uL (4.5-6.0); WHITE BLOOD COUNT (AUTO) 13.3 K/uL (4.3-11.0)
--- NOTE | 2017-04-03 06:29 | NUR ---
DAIRY CHEMIST CLOSING NOTES PT IS IN BED RESTING, NO SIGNS OF SOB OR DISTRESS. DENIES PAIN. IV ACCESS PATENT AND INTACT WITH NS RUNNING AT 100 ML/HR. STOOL SPECIMEN COLLECT. ANTIBIOTICS WERE STARTED. BED BATH WAS GIVEN. CONTACT PRECAUTIONS WERE CARRIED OUT. ALL NEEDS WERE ANTICIPATED AND MET. BED IS IN LOW AND LOCKED POSITION, CALL LIGHT WITHIN REACH, BED ALARM ON. WILL ENDORSE TO DAY SHIFT
[2017-04-03 06:50] LABS: ALANINE AMINOTRANSFERASE 14 U/L (12-78); ALBUMIN 2.1 g/dL (3.4-5.0); ALKALINE PHOSPHATASE 70 U/L (46-116); ASPARTATE AMINOTRANSFERASE 13 U/L (15-37); BILIRUBIN,TOTAL 0.2 mg/dL (0.2-1.0); CALCIUM, SERUM 7.9 mg/dL (8.5-10.1); CARBON DIOXIDE 24 mmol/L (21-32); CHLORIDE 109 mmol/L (98-107); CREATININE 1.4 mg/dL (0.6-1.3); GLUCOSE 103 mg/dL (74-106); POTASSIUM 3.6 mmol/L (3.5-5.1); SODIUM SERUM 142 mmol/L (136-145); TOTAL PROTEIN, SERUM 5.1 g/dL (6.4-8.2); UREA NITROGEN, BLOOD 27 mg/dL (7-18)
[2017-04-03 06:57] VITALS: BP 113/56
--- NOTE | 2017-04-03 07:04 | NUR ---
CRITICAL LAB VALUE TROPONIN 0.560 DR ARTEAGA WAS NOTIFIED, NO FURTHER ORDERS FROM DR ARTEAGA ASKED DR FOR DNR/DNI ORDER
[2017-04-03 07:10] LABS: FREE PSA 0.17 ng/mL (0.00-45); PROSTATE SPECIFIC ANTIGEN SCR 1.16 ng/mL (0.00-4.00)
[2017-04-03 07:59] LABS: BAND % (MANUAL) 37 % (0.0-5.0); LYMPHOCYTES % (MANUAL) 7 % (16-48); MONOCYTES % (MANUAL) 17 % (0-11.0); NEUTROPHILS % (MANUAL) 39 (42-76)
--- NOTE | 2017-04-03 08:00 | NUR ---
COURT ORDERLY OPENING RECEIVED PATIENT A/OX4 DENIES PAIN, SOB, DIFFICULTY BREATHING AT THIS TIME. PATIENT A/OX 2-3. PATIENT IVF RUNNING ORDERED, ALL NEEDS IN REACH. PATIENT EDUCATED ON FALL PRECAUTIONS AND STATED UNDERSTANDING. BED ALARM ON DUE TO FORGETFULNESS. PATIENT NOTIFIED OF PENDING PHYSICAL THERAPY ORDERED FOR TODAY. ALL NEEDS IN REACH, BED LOWERED AND LOCKED, RAILS UPX3, BED ALARM ON AND WILL ROUND Q2H OR LESS PER NEEDS. TELE NSR
[2017-04-03 09:05] LABS: MAGNESIUM 1.8 mg/dL (1.8-2.4)
[2017-04-03] MEDS: ASPIRIN 81 MG TAB.CHEW PO SCH (09:50)
[2017-04-03] MEDS: LACTOBACILLUS RHAMNOSUS GG 1 EACH CAP.SPRINK PO SCH ×2 (09:50→18:01)
[2017-04-03] MEDS: CHOLECALCIFEROL 1,000 UNIT TABLET (VIT D3) PO SCH (09:50)
--- NOTE | 2017-04-03 09:55 | NUR ---
CT MRI TECHNOLOGIST NOTES PATIENT WORKING WITH PHYSICAL THERAPY. TOLERATING WELL. SITTING IN CHAIR AT THIS TIME
--- NOTE | 2017-04-03 10:55 | NUR ---
MIXER TENDER NOTES SPOKE WITH DR ARTEAGA AND NOTIFIED PATIENT REQUESTS TO BE DNR/DNI MD IS AWARE AND STATES TO UPDATE ORDER AND CHANGE CODE STATUS TO DNR/DNI. PER MD FIND OUT IF PATIENT KURTZ CATH WAS CHNAGED LAST TIME HERE AT HOSPITAL; AND IF IT WAS NO NEED TO REPLACE KURTZ CATH
--- NOTE | 2017-04-03 11:30 | NUR ---
ROOFER METAL NOTES MD AWARE PATIENT POSITIVE FOR CDIFF
[2017-04-03 12:09] LABS: THYROID STIMULATING HORMONE 1.332 uIU/mL (0.358-3.74)
[2017-04-03 16:00] VITALS: BP 105/70
[2017-04-03] MEDS ORDERED: Z GUARD REMEDY 2 OZ OINT TP PRN (17:00)
--- NOTE | 2017-04-03 18:15 | NUR ---
ECONOMICS PROFESSOR NOTES REORDERED CASE MANAGEMENT NOTE. SPOKE WITH PATIENT SON RUSTAM AND PATIENT HAS A CAREGIVER AT HOME WHO ASSISTS WITH HYGIENE AND CLEANING HOUSE AND MEALS. PATIENT MAY NEED EVAL FOR MORE CARE AT HOME PATIENT WAS COVERED IN BUILDUP OF DIRT IN HAIR AND SAINI. SOCIAL CONSULT ADDED
--- NOTE | 2017-04-03 18:32 | NUR ---
BIG DATA DEVELOPER CLOSING PATIENT STABLE NO COMPLICATIONS THROUGHOUT DAY. SPOKE WITH SON AND PER SON PATIENT IS DUE TO HAVE KURTZ CATH REPLACED. MD AWARE AND OK TO REPLACE. PATIENT IS NOT WANTING THIS TO BE COMPLETED AT THIS TIME AND WANTS TO FINISH DINNER. WILL ENDORSE TO RN FOR COMPLETION. ALL DUE MEDS GIVEN AND ALL NEEDS MET. HISTOLOGY TECHNICIAN COMPLETED BEDBATH TODAY X2. CALL LIGHT IN REACH, BED LOWERED AND LOCKED, RAILS UXP3 FOR SAFETY AND WILL ENDORSE CARE TO RN FOR MAHAD. IVF RUNNING ORDERED.
--- NOTE | 2017-04-03 19:28 | NUR ---
MS RN KURTZ INSERTION NOTE INSERTED [address] [place] [address] ORDER FOLLOWING ASEPTIC TECHNIQUE. PATIENT TOLERATED PROCEDURE WELL. NO COMPLICATIONS. PATIENT IS STABLE IN BED. BED LOCKED IN LOW POSITION, SIDE RAILS X2.
[2017-04-03] MEDS: CEFEPIME 1 GM in IV D5W 50 ML IV SCH (20:27)
[2017-04-03 20:36] VITALS: BP 96/58
[2017-04-03 21:31] VITALS: BP 96/58
[2017-04-04] VITALS: BP 110/61
[2017-04-04] MEDS ORDERED: METRONIDAZOLE 500MG/ NS 100ML 500 MG in PREMIX 1 EA IV SCH ×2 (00:30→06:45)
[2017-04-04] MEDS: VANCOMYCIN HCL 125 MG/2.5 ML ORAL.SUSP PO SCH ×5 (00:51→23:36)
[2017-04-04] MEDS ORDERED: METRONIDAZOLE 500MG/ NS 100ML 100 ML IV ONE (01:26)
[2017-04-04 04:00] VITALS: BP 110/69
[2017-04-04] MEDS: IV NS 0.9% 1,000 ML IV PRN ×2 (04:50→17:29)
--- NOTE | 2017-04-04 07:01 | NUR ---
SCHOOL COORDINATOR CLOSING NOTES PT IS IN BED RESTING, NO SIGNS OF DISTRESS. DENIES PAIN. IV ACCESS PATENT AND INTACT WITH NS RUNNING AT 100 ML/HR. CONTACT PRECAUTIONS FOR C DIFF. ALL NEEDS WERE ANTICIPATED AND MET. BED IS IN LOW AND LOCKED POSITION, CALL LIGHT WITHIN REACH, BED ALARM ON. WILL ENDORSE TO DAY SHIFT FOR MAHAD.
[2017-04-04 07:03] VITALS: BP 113/70
--- NOTE | 2017-04-04 07:15 | NUR ---
AIRCRAFT REFUELER NOTES PATIENT ALERT AND ORIENTED, A JOKER AND A STORYTELLER, NO DISTRESS NOTED, BREATHING EVEN AND UNLABORED, PIV PATENT AND INTACT WITH IVF INFUSING, ON CONTACT ISOLATION FOR C. DIFF, ALL NEEDS ATTENDED, SAFETY MEASURES IN PLACED,C ALL LIGHT WITHIN REACH, WILL CONTINUE TO MONITOR.
[2017-04-04 07:26] LABS: BASOPHILS % (AUTO) 0.5 % (0.0-2.0); EOSINOPHILS # (AUTO) 0.2 /CMM (0.0-0.7); EOSINOPHILS % (AUTO) 2.9 % (0.0-6.0); HEMATOCRIT 33 % (39-51); HEMOGLOBIN 11.1 g/dL (13.5-17.5); LYMPHOCYTES # (AUTO) 1.7 /CMM (0.8-4.8); LYMPHOCYTES % (AUTO) 25.5 % (20.0-44.0); MEAN CORPUSCULAR HEMOGLOBIN 29 PG (26.0-33.0); MEAN CORPUSCULAR HGB CONC 34 g/dl (31.0-36.0); MEAN CORPUSCULAR VOLUME 87 fL (80-96); MONOCYTES # (AUTO) 1.3 /CMM (0.1-1.30); MONOCYTES % (AUTO) 19.6 % (2.0-12.0); NEUTROPHILS # (AUTO) 3.5 /CMM (1.8-8.9); NEUTROPHILS % (AUTO) 51.5 % (43.0-81.0); PLATELET COUNT (AUTO) 249 /CMM (150-450); RDW COEFFICIENT OF VARIATION 14.9 (11.5-15.0); RED BLOOD CELL COUNT(AUTO) 3.79 MIL/uL (4.5-6.0); WHITE BLOOD COUNT (AUTO) 6.8 K/uL (4.3-11.0)
[2017-04-04 07:29] LABS: ALANINE AMINOTRANSFERASE 15 U/L (12-78); ALBUMIN 1.9 g/dL (3.4-5.0); ALKALINE PHOSPHATASE 54 U/L (46-116); ASPARTATE AMINOTRANSFERASE 17 U/L (15-37); BILIRUBIN,TOTAL 0.2 mg/dL (0.2-1.0); CALCIUM, SERUM 7.6 mg/dL (8.5-10.1); CARBON DIOXIDE 23 mmol/L (21-32); CHLORIDE 111 mmol/L (98-107); CREATININE 1.1 mg/dL (0.6-1.3); GLUCOSE 105 mg/dL (74-106); MAGNESIUM 1.7 mg/dL (1.8-2.4); PHOSPHORUS 2.8 mg/dL (2.5-4.9); POTASSIUM 3.8 mmol/L (3.5-5.1); SODIUM SERUM 142 mmol/L (136-145); TOTAL PROTEIN, SERUM 4.5 g/dL (6.4-8.2); UREA NITROGEN, BLOOD 26 mg/dL (7-18)
[2017-04-04 08:25] LABS: TROPONIN I 0.521 ng/mL (0.00-0.056)
[2017-04-04] MEDS: Magnesium 1GM/D5W 100ML PREMIX 100 ML IV SCH ×2 (08:39→09:55)
[2017-04-04] MEDS: CHOLECALCIFEROL 1,000 UNIT TABLET (VIT D3) PO SCH (08:42)
[2017-04-04] MEDS: ASPIRIN 81 MG TAB.CHEW PO SCH (08:42)
[2017-04-04] MEDS: LACTOBACILLUS RHAMNOSUS GG 1 EACH CAP.SPRINK PO SCH ×2 (08:42→17:27)
[2017-04-04] MEDS: CARVEDILOL 3.125 MG TABLET PO SCH ×2 (08:42→20:32)
--- NOTE | 2017-04-04 08:52 | NUR ---
CHARGE NOTES PER DR. BILLY ALMONTE TELEMETRY.
[2017-04-04 09:41] LABS: BAND % (MANUAL) 4 % (0.0-5.0); LYMPHOCYTES % (MANUAL) 28 % (16-48); MONOCYTES % (MANUAL) 23 % (0-11.0); NEUTROPHILS % (MANUAL) 45 (42-76)
[2017-04-04] MEDS: RIFAXIMIN 200 MG TABLET PO SCH ×3 (09:55→17:27)
--- NOTE | 2017-04-04 11:41 | NUR ---
Social service consult requested by Dr. Ramirez regarding pt. appeared dirty and unkempt. Pt. is a 86 year old male who was admitted to [facility] for possible CDIFF. Pt. has had several hospitalizations within the past month. Pt. is alert and oriented x3. Pt. was friendly and cooperative with SW during the assessment. Pt. has a sense of humor. Pt. resides with his son by the same name as pt. Mauri Villegas. Pt. states he has supports at home. Pt. said he has a lactation specialist who makes his meals. Pt. informed SW his son recently renovated the bathroom which is more feasible for him to use. Pt. has red color walker with a seat that pt. calls his "daren quan". 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 Pt. stated his routine at home is eat, sleep, paint. Pt. states, he expresses himself through his paintings. Pt. is fond of wolves and was telling SW stories regarding him being in a cage with them. Pt. would like to be discharged back home with home health services once medically cleared. senior manager asset protection Marika is aware of discharge plan.
[2017-04-04 12:00] VITALS: BP 103/59
[2017-04-04] MEDS: METRONIDAZOLE 500MG/ NS 100ML 500 MG in PREMIX 1 EA IV SCH ×2 (12:44→20:36)
--- NOTE | 2017-04-04 12:49 | NUR ---
RN MS NOTES PATIENT SEEN BY DR. ARTEAGA, AWARE OF LAB RESULTS AND CXR RESULT, WITH ORDER FOR INCENTIVE SPIROMETER Q1HR WHILE AWAKE. ORDER NOTED AND CARRIED OUT.
--- NOTE | 2017-04-04 16:00 | NUR ---
RN MS NOTES PATIENT REFUSING VITAL SIGNS, EXPLAINED RISKS AND BENEFITS X3, STILL REFUSED, PATIENT STATES "GO AWAY, DONT BOTHER ME".
--- NOTE | 2017-04-04 18:55 | NUR ---
RN MS NOTES PATIENT ALERT AND ORIENTED, EATING DINNER AND TOLERATING WELL, NO DISTRESS NOTED, BREATHING EVEN AND UNLABORED, PIV PATENT AND INTACT ON RFA, IVF INFUSING, PATIENT WANTS TO BE LEFT ALONE AND NOT BE BOTHERED BY ANY STAFF, ALL NEEDS ATTENDED, CALL LIGHT WITHIN REACH, WILL ENDORSE TO SHIPPING TECHNICIAN FOR MAHAD.
--- NOTE | 2017-04-04 19:35 | NUR ---
RIB KNITTER NOTES PATIENT IS A/OX3. IV IS PATENT AND INTACT WITH NS @ 100 ML/HR. NO SIGNS OF SOB OR DISTRESS. KURTZ CATHETER IS INTACT. ANTIBIOTICS ARE TO BE GIVEN. WILL CONTINUE TO MONITOR PT
[2017-04-04] MEDS: CEFEPIME 1 GM in IV D5W 50 ML IV SCH (19:39)
[2017-04-04 20:00] VITALS: BP 104/61
--- NOTE | 2017-04-04 20:33 | NUR ---
NON-ADMIN NOTES COREG WAS HELD, SBP <105
[2017-04-04 20:40] VITALS: BP_SYST 104; BP_SYST 138; BP_DIAS 61; BP_DIAS 74
[2017-04-05] MEDS: IV NS 0.9% 1,000 ML IV PRN (04:02)
[2017-04-05] MEDS: METRONIDAZOLE 500MG/ NS 100ML 500 MG in PREMIX 1 EA IV SCH ×2 (04:02→12:08)
[2017-04-05] MEDS ORDERED: MEROPENEM 500 MG in IV NS 0.9% 50 ML IV SCH (05:00)
[2017-04-05] MEDS ORDERED: MEROPENEM 500 MG VIAL IV ONE (05:14)
[2017-04-05] MEDS: VANCOMYCIN HCL 125 MG/2.5 ML ORAL.SUSP PO SCH ×3 (05:40→17:00)
--- NOTE | 2017-04-05 06:29 | NUR ---
MS RN CLOSING NOTES PT IS IN BED RESTING, NO SIGNS OF SOB OR DISTRESS. DENIES PAIN. IV ACCESS PATENT AND INTACT WITH NS RUNNING AT 100 ML/HR.CONTACT PRECAUTIONS WERE CARRIED OUT. ALL NEEDS WERE ANTICIPATED AND MET. BED IS IN LOW AND LOCKED POSITION, CALL LIGHT WITHIN REACH, BED ALARM ON. WILL ENDORSE TO DAY SHIFT
--- NOTE | 2017-04-05 07:35 | NUR ---
RN MS NOTES RECEIVED PATIENT IN BED, NO APPARENT DISTRESS NOTED, DENIES PAIN, DENIES SOB. KURTZ CATH DRAINING WELL, IV LINE ON RFA PATENT, INFUSING NS AT 100ML/HR. ALL NEEDS MET, CALL LIGHT WITHIN REACH.
[2017-04-05 07:47] LABS: BASOPHILS % (AUTO) 0.7 % (0.0-2.0); EOSINOPHILS # (AUTO) 0.3 /CMM (0.0-0.7); EOSINOPHILS % (AUTO) 5.7 % (0.0-6.0); HEMATOCRIT 33 % (39-51); HEMOGLOBIN 11.1 g/dL (13.5-17.5); LYMPHOCYTES # (AUTO) 1.9 /CMM (0.8-4.8); LYMPHOCYTES % (AUTO) 31.7 % (20.0-44.0); MEAN CORPUSCULAR HEMOGLOBIN 30 PG (26.0-33.0); MEAN CORPUSCULAR HGB CONC 34 g/dl (31.0-36.0); MEAN CORPUSCULAR VOLUME 87 fL (80-96); MONOCYTES # (AUTO) 0.9 /CMM (0.1-1.30); MONOCYTES % (AUTO) 15.9 % (2.0-12.0); NEUTROPHILS # (AUTO) 2.7 /CMM (1.8-8.9); PLATELET COUNT (AUTO) 305 /CMM (150-450); RDW COEFFICIENT OF VARIATION 14.9 (11.5-15.0); RED BLOOD CELL COUNT(AUTO) 3.77 MIL/uL (4.5-6.0); WHITE BLOOD COUNT (AUTO) 5.9 K/uL (4.3-11.0)
[2017-04-05 08:00] VITALS: BP 127/72
[2017-04-05 08:09] LABS: ALANINE AMINOTRANSFERASE 16 U/L (12-78); ALBUMIN 1.8 g/dL (3.4-5.0); ALKALINE PHOSPHATASE 50 U/L (46-116); ASPARTATE AMINOTRANSFERASE 15 U/L (15-37); BILIRUBIN,TOTAL 0.1 mg/dL (0.2-1.0); CALCIUM, SERUM 7.6 mg/dL (8.5-10.1); CARBON DIOXIDE 23 mmol/L (21-32); CHLORIDE 111 mmol/L (98-107); CREATININE 1.2 mg/dL (0.6-1.3); GLUCOSE 87 mg/dL (74-106); PHOSPHORUS 2.7 mg/dL (2.5-4.9); SODIUM SERUM 143 mmol/L (136-145); TOTAL PROTEIN, SERUM 4.4 g/dL (6.4-8.2); UREA NITROGEN, BLOOD 25 mg/dL (7-18)
[2017-04-05 08:14] LABS: TROPONIN I 0.509 ng/mL (0.00-0.056)
[2017-04-05 08:56] LABS: BAND % (MANUAL) 1 % (0.0-5.0); EOSINOPHILS % (MANUAL) 10 % (0-4); LYMPHOCYTES % (MANUAL) 25 % (16-48); MONOCYTES % (MANUAL) 14 % (0-11.0); NEUTROPHILS % (MANUAL) 50 (42-76)
[2017-04-05] MEDS ORDERED: MEROPENEM 1 G in IV NS 0.9% 100 ML IV SCH (09:00)
[2017-04-05] MEDS: RIFAXIMIN 200 MG TABLET PO SCH ×3 (09:04→16:21)
[2017-04-05] MEDS: LACTOBACILLUS RHAMNOSUS GG 1 EACH CAP.SPRINK PO SCH ×2 (09:04→16:21)
[2017-04-05] MEDS: ASPIRIN 81 MG TAB.CHEW PO SCH (09:04)
[2017-04-05] MEDS: CHOLECALCIFEROL 1,000 UNIT TABLET (VIT D3) PO SCH (09:04)
[2017-04-05] MEDS: CARVEDILOL 3.125 MG TABLET PO SCH (09:41)
[2017-04-05 10:00] VITALS: BP 127/72
--- NOTE | 2017-04-05 18:50 | NUR ---
RN MS CLOSING NOTES PATIENT LEFT IN STABLE CONDITION, VIA PRIVATE CAR ACCOMPANIED BY HIS SON RUSTAM. NO APPARENT DISTRESS NOTED, DENIES PAIN, DENIES SOB. ALL DUE MEDS GIVEN, ALL NEEDS MET, KEPT CLEAN AND DRY. SKIN ASSESSMENT DONE NOTED WITH SACRAL AND SCROTAL REDNESS, PICTURES TAKEN FOR THE CHART. IV LINE DISCONTINUED NO S/S OF INFECTION NOTED. PATIENT HAD ONE SOFT STOOL DURING SHIFT.PATIENT WAS ADMITTED WITH KURTZ CATH. KURTZ CATH LEFT IN PLACE,DRAINING WELL. DISCHARGE INSTRUCTIONS REVIEWED WITH PATIENT AND HIS SON, THEY STATED UNDERSTANDING. PRESCRIPTION GIVEN TO SON, EDUCATION PROVIDED FOR MEDICATIONS. PRESCRIPTION FAXED TO [facility] PER SON'S REQUEST.
== END 2017-04-05 18:45 | disposition home or self-care (01) | DRG 871 ==
LOC: ER 15:28 → TELE 17:45 → MED 04-04 09:53
PROVIDERS: ADMIT Internal Medicine; ATTEND Internal Medicine
DX: A41.9 Sepsis, unspecified organism (principal); I21.4 Non-ST elevation (NSTEMI) myocardial infarction; N17.0 Acute kidney failure with tubular necrosis; A04.7 Enterocolitis due to Clostridium difficile; N39.0 Urinary tract infection, site not specified; E87.2 Acidosis; R65.20 Severe sepsis without septic shock; I10 Essential (primary) hypertension; I25.10 Atherosclerotic heart disease of native coronary artery without angina pectoris; Z87.440 Personal history of urinary (tract) infections; B96.5 Pseudomonas (aeruginosa) (mallei) (pseudomallei) as the cause of diseases classified elsewhere; B96.89 Other specified bacterial agents as the cause of diseases classified elsewhere; E83.42 Hypomagnesemia
CPT/HCPCS: 36415; 71010-TC; 80048-TC; 80053-TC; 80076-TC; 81000-TC; 82728-TC; 83540-TC; 83605-TC; 83735-TC; 84100-TC; 84153-TC; 84154-TC; 84439-TC; 84443-TC; 84484-TC; 85025-TC; 85730-TC; 87040-TC; 87081-TC; 87086-TC; 87186-TC; 93307-TC; 97001-TC; 97116-TC; 97530-TC; A4216; A4606; J0692; J2185; J3475; J3490; J7030; J7060; Z7610

== ENCOUNTER 2017-05-05 22:53 | Emergency (ER) | payer MEDICARE ==
[~2017-05-05] VITALS: Ht 172.7 cm; Wt 59.0 kg
[~2017-05-05 22:53] MED LIST changes: +CRAN425C PO; +LACT1CAP74 PO
[2017-05-05 23:07] VITALS: BP 156/50
== END 2017-05-06 00:02 | disposition home or self-care (01) ==
LOC: ER 22:58
DX: T83.038A Leakage of other urinary catheter, initial encounter (principal); I10 Essential (primary) hypertension; Z88.1 Allergy status to other antibiotic agents; Z79.82 Long term (current) use of aspirin; Y92.89 Other specified places as the place of occurrence of the external cause
CPT/HCPCS: A4606; Z7610

== ENCOUNTER 2017-05-20 12:43 | Inpatient (IN) | payer MEDICARE ==
[~2017-05-20] VITALS: Ht 147.3 cm; Wt 52.2 kg
--- NOTE | 2017-05-20 13:03 | NUR ---
PT BIB FAMILY SENT BY PMD FOR R/O C-DIFF AND DIFFUSE ABD PAIN WITH DIARRHEA X3 DAYS. DENIES N/V. NAD NOTED. ABD SOFT, NON-TENDER. INDWELLING CATH PRESENT ON ARRIVAL. VSS. RESP EVEN UNLABORED. SKIN WARM NONDIAPHORETIC. PT STATES THAT HIS KURTZ WAS CHANGED 2 WEEKS AGO AND REFUSES OFFER TO CAHNGE IT. IN ER BED 09.
[2017-05-20 13:18] LABS: BASOPHILS # (AUTO) 0.1 /CMM (0.0-0.2); EOSINOPHILS # (AUTO) 0.1 /CMM (0.0-0.7); EOSINOPHILS % (AUTO) 0.8 % (0.0-6.0); LYMPHOCYTES # (AUTO) 1.2 /CMM (0.8-4.8); WHITE BLOOD COUNT (AUTO) 8.9 K/uL (4.3-11.0)
[2017-05-20 13:21] LABS: BASOPHILS % (AUTO) 0.7 % (0.0-2.0); HEMATOCRIT 45 % (39-51); HEMOGLOBIN 14.5 g/dL (13.5-17.5); LYMPHOCYTES % (AUTO) 13.6 % (20.0-44.0); MEAN CORPUSCULAR HEMOGLOBIN 29 PG (26.0-33.0); MEAN CORPUSCULAR HGB CONC 33 g/dl (31.0-36.0); MEAN CORPUSCULAR VOLUME 88 fL (80-96); MONOCYTES # (AUTO) 1.9 /CMM (0.1-1.30); MONOCYTES % (AUTO) 21.8 % (2.0-12.0); NEUTROPHILS # (AUTO) 5.6 /CMM (1.8-8.9); NEUTROPHILS % (AUTO) 63.1 % (43.0-81.0); PLATELET COUNT (AUTO) 321 /CMM (150-450); RDW COEFFICIENT OF VARIATION 14.8 (11.5-15.0)
[2017-05-20 13:27] LABS: BILIRUBIN,URINE Negative (NEGATIVE); BLOOD, URINE Small Ery/uL (NEGATIVE); COLOR,URINE Yellow (YELLOW); KETONES,URINE Trace (NEGATIVE); LEUKOCYTE ESTERASE ,URINE Small (NEGATIVE); NITRITE, URINE Positive (NEGATIVE); PROTEIN,URINE >=300 mg/dl (NEGATIVE); UGLUCOSE Negative (NEGATIVE); UROBILINOGEN,URINE 0.2 EU/dL (0.2)
[2017-05-20 13:28] LABS: APPEARANCE,URINE Slightly Cloudy (CLEAR); PH,URINE >9.0 (5.0-8.0)
[2017-05-20 13:28] LABS: CARBON DIOXIDE 24 mmol/L (21-32); CHLORIDE 103 mmol/L (98-107); CREATININE 1.7 mg/dL (0.6-1.3); GLUCOSE 213 mg/dL (74-106); POTASSIUM 3.7 mmol/L (3.5-5.1); SODIUM SERUM 138 mmol/L (136-145); UREA NITROGEN, BLOOD 54 mg/dL (7-18)
[2017-05-20 13:29] LABS: BACTERIA,URINE 1+ /HPF (None Seen); SQUAMOUS EPITHELIAL CELL,UR Rare /HPF (None Seen)
[2017-05-20 13:30] LABS: URINE AMORPHOUS PHOSPHATES Moderate /HPF (None Seen)
--- NOTE | 2017-05-20 13:30 | NUR ---
CALLED NURSING SUP. FOR MS BED
[2017-05-20 13:34] LABS: ALANINE AMINOTRANSFERASE 16 U/L (12-78); ALBUMIN 2.9 g/dL (3.4-5.0); ALKALINE PHOSPHATASE 89 U/L (46-116); ASPARTATE AMINOTRANSFERASE 15 U/L (15-37); BILIRUBIN,DIRECT 0.1 mg/dL (0.0-0.2); BILIRUBIN,TOTAL 0.3 mg/dL (0.2-1.0); TOTAL PROTEIN, SERUM 6.7 g/dL (6.4-8.2)
--- NOTE | 2017-05-20 13:41 | NUR ---
JENNIFER PAGED, DR.SAM Horvath SEWING PATTERN LAYOUT TECHNICIAN
[2017-05-20] MEDS ORDERED: MULT-213 PO (14:04)
[2017-05-20] MEDS ORDERED: ASPI81TA2 PO (14:04)
--- NOTE | 2017-05-20 14:19 | NUR ---
REPORT GIVEN TO AYUSH YARBROUGH FOR ADMISSION
--- NOTE | 2017-05-20 14:37 | NUR ---
PT TRANSPORTED TO 102 IN STABLE CONDITION
[2017-05-20 14:45] VITALS: BP 123/74
--- NOTE | 2017-05-20 14:45 | NUR ---
RN INITIAL NOTES RECEIVED PT AWAKE, A/OX4. NO RESPIRATORY DISTRESS NOTED. NO SOB NOTED. ON ROOM AIR. DENIES ANY PAIN. IV ON LFA #[address] FC PRESENT UPON ADMISSION. PT REFUSED TO REPLACE IT, OFFERED X3. PER PT, FC WAS INSERTED 2 WEEKS AGO. BODY ASSESSMENT DONE. PICTURES TAKEN AND PLACED IN THE CHART. ORIENTED TO ROOM AND USE OF CALL LIGHT. WILL MONITOR FOR ACTIVE DIARRHEA. PT PLACED ON CONTACT ISOLATION FOR C-DIFF. PT HAS HX OF C-DIFF. PT COMFORTABLE. CALLED DR. HO FOR ADMISSION ORDERS. AWAITING FOR ORDER. WILL MONITOR.
[2017-05-20 14:46] LABS: BAND % (MANUAL) 9 % (0.0-5.0); LYMPHOCYTES % (MANUAL) 14 % (16-48); MONOCYTES % (MANUAL) 27 % (0-11.0); NEUTROPHILS % (MANUAL) 50 (42-76)
--- NOTE | 2017-05-20 15:47 | NUR ---
RN NOTES SEEN AND EXAMINED BY DR. GE[place]IA SOLIS. AWARE OF CURRENT LAB VALUES. ADMISSION ORDERS NOTED AND CARRIED OUT.
[2017-05-20 16:00] VITALS: BP 109/70
--- NOTE | 2017-05-20 18:40 | NUR ---
RN CLOSING NOTES PT REMAINS STABLE. NO RESPIRATORY DISTRESS NOTED. NO ACTIVE DIARRHEA NOTED. PENDING STOOL COLLECTION. KEPT CLEAN AND DRY. KEPT COMFORTABLE. ALL NEEDS ATTENDED AND MET. CALL LIGHT WITHIN REACH. WILL ENDORSE FOR CONTINUITY IF CARE.
--- NOTE | 2017-05-20 19:30 | NUR ---
MS ZENON INITIAL NOTES RECEIVED PATIENT ASLEEP, NO S/S OF PAIN OR DISCOMFORT. RESPIRATIONS EVEN AND UNLABORED ON ROOM AIR. SKIN WARM AND DRY TO TOUCH. WITH F/C PATENT AND INTACT, DRAINING BY GRAVITY. IVF RUNNING. HOB ELEVATED. SIDE RAILS UP AND LOCKED. BED KEPT AT LOWEST POSITION. CALL LIGHT KEPT WITHIN EASY REACH. WILL CONTINUE TO MONITOR.
[2017-05-20 20:00] VITALS: BP 103/55
[2017-05-21 04:00] VITALS: BP 106/55
--- NOTE | 2017-05-21 06:21 | NUR ---
MS RN CLOSING NOTES NO SIGNIFICANT CHANGES OVERNIGHT. ALL NEEDS ANTICIPATED AND MET. NO C/O PAIN OR DISCOMFORT. NO RESPIRATORY DISTRESS NOTED, ON ROOM AIR. PATIENT KEPT CLEAN AND DRY. TURNED AND REPOSITIONED Q2 AND PRN. ISOLATION PRECAUTIONS OBSERVED. STOOL FOR C.DIFF COLLECTED. IVF RUNNING AT 100ML/HR. HOB ELEVATED. DVT PUMPS ON. SIDE RAILS UP AND LOCKED. BED KEPT AT LOWEST POSITION. CALL LIGHT KEPT WITHIN EASY REACH. WILL ENDORSE CONTINUITY OF CARE TO AM NURSE.
[2017-05-21 06:33] LABS: BASOPHILS % (AUTO) 0.3 % (0.0-2.0); EOSINOPHILS # (AUTO) 0.1 /CMM (0.0-0.7); EOSINOPHILS % (AUTO) 1.1 % (0.0-6.0); HEMATOCRIT 38 % (39-51); HEMOGLOBIN 12.7 g/dL (13.5-17.5); LYMPHOCYTES # (AUTO) 1.5 /CMM (0.8-4.8); LYMPHOCYTES % (AUTO) 15.8 % (20.0-44.0); MEAN CORPUSCULAR HEMOGLOBIN 29 PG (26.0-33.0); MEAN CORPUSCULAR HGB CONC 33 g/dl (31.0-36.0); MEAN CORPUSCULAR VOLUME 88 fL (80-96); MONOCYTES # (AUTO) 1.7 /CMM (0.1-1.30); MONOCYTES % (AUTO) 17.8 % (2.0-12.0); NEUTROPHILS # (AUTO) 6.1 /CMM (1.8-8.9); PLATELET COUNT (AUTO) 266 /CMM (150-450); RDW COEFFICIENT OF VARIATION 16.4 (11.5-15.0); RED BLOOD CELL COUNT(AUTO) 4.35 MIL/uL (4.5-6.0); WHITE BLOOD COUNT (AUTO) 9.3 K/uL (4.3-11.0)
[2017-05-21 07:02] LABS: CALCIUM, SERUM 7.8 mg/dL (8.5-10.1); CARBON DIOXIDE 27 mmol/L (21-32); CHLORIDE 109 mmol/L (98-107); CREATININE 1.4 mg/dL (0.6-1.3); GLUCOSE 95 mg/dL (74-106); MAGNESIUM 1.8 mg/dL (1.8-2.4); PHOSPHORUS 3.2 mg/dL (2.5-4.9); POTASSIUM 3.8 mmol/L (3.5-5.1); SODIUM SERUM 141 mmol/L (136-145); UREA NITROGEN, BLOOD 41 mg/dL (7-18)
[2017-05-21 07:17] LABS: CHOLESTEROL 121 mg/dL (<200); HDL CHOLESTEROL 38 mg/dL (40-60); LDL 70 mg/dL (0-99); THYROID STIMULATING HORMONE 0.877 uIU/mL (0.358-3.74); TRIGLYCERIDES 98 mg/dL (30-150)
--- NOTE | 2017-05-21 07:35 | NUR ---
RN NOTES RECEIVED PT FROM INSTRUCTOR DANCING IN STABLE CONDITION. A&0X3 ON ROOM AIR SATING WELL NO SOB OR DISTRESS NOTED. ISOLATED PRECAUTIONS FOLLOWED. KURTZ IN PLACE DRAINING TO GRAVITY. LFA IV SITE 20 GAUGE DRY AND INTACT WITH IVF RUNNING AT 100ML/HR. CALL LIGHT WITHIN REACH, SIDE RAILS UPX3, BED LOCKED AND IN LOWEST POSITION WILL CONT TO MONITOR.
[2017-05-21 08:00] VITALS: BP 97/52
[2017-05-21 10:43] LABS: BAND % (MANUAL) 5 % (0.0-5.0); EOSINOPHILS % (MANUAL) 1 % (0-4); LYMPHOCYTES % (MANUAL) 13 % (16-48); MONOCYTES % (MANUAL) 15 % (0-11.0); NEUTROPHILS % (MANUAL) 66 (42-76)
--- NOTE | 2017-05-21 11:03 | NUR ---
RN NOTES CALL FROM [facility] STOOL POSITIVE FOR CDIFF. DR GEORGIA REED NOTIFIED, NO NEW ORDERS.
--- NOTE | 2017-05-21 12:43 | NUR ---
WOUND CARE CONSULT: PT PRESENTS WITH BLANCHABLE REDNESS TO SACRAL AREA WITH SOME SKIN STAINING AND PEELING SKIN TO BUTTOCKS. RECOMMENDATIONS MADE FOR SKIN PROTECTION AND DISCUSSED WITH NURSING STAFF. PT STATES HAS HAD CHRONIC DIARRHEA SINCE SEPTEMBER. PT HAS VERY LONG TOENAILS WITH DEBRIS TO FEET AND IN BETWEEN TOES WITH FOUL ODOR. PT ONLY ALLOWED VERY BRIEF ASSESSMENT OF FEET AND WANTED SOCKS ON. RECOMMEND DPM CONSULT. ALL SKIN PROTECTION MEASURES DISCUSSED WITH NURSING STAFF. WILL SEE PRN. GALDAMEZ IN AGREEMENT WITH PLAN OF CARE. Addendum: 05/21/17 at 1245 by PAUL PLASENCIA WNDNU Amended: Links added.
[2017-05-21 16:00] VITALS: BP 98/65
--- NOTE | 2017-05-21 18:25 | NUR ---
RN NOTES PT RESTING IN BED COMFORTABLY, CDIFF ISOLATION PRECAUTIONS FOLLOWED. NO SOB OR DISTRESS NOTED. NO SIGNIFICANT CHANGES THROUGHOUT MY SHIFT. ALL NEEDS MET. ANTIBIOTICS CONTINUED. IV SITE DRY AND INTACT NO INFILTRATION NOTED. SIDE RAILS UPX3, CALL LIGHT WITHIN REACH, BED LOCKED AND IN LOWEST POSITION WILL ENDORSE TO ONCOMING SHIFT.
--- NOTE | 2017-05-21 19:15 | NUR ---
RN OPEN NOTES RECEIVED PATIENT RESTING IN BED, EASILY AROUSABLE TO NAME. A/O X3. NO SIGNS OF DISTRESS OR DISCOMFORT. BREATHING EVEN AND UNLABORED. IV ACCESS IN LFA WITH NS INFUSING, PATENT AND INTACT, NO SIGNS OF REDNESS OR INFILTRATION. HAS F/C INTACT, WITH CLOUDY YELLOW FLUID NOTED. BED IN LOW LOCKED POSITION WITH SIDE RAILS X3. CALL LIGHT WITHIN REACH. WILL CONTINUE TO MONITOR.
[2017-05-21 20:00] VITALS: BP 101/56
--- NOTE | 2017-05-21 20:41 | NUR ---
RN NOTES PATIENT REFUSED LOVENOX 30MG INJ. X3. PER PATIENT HE DOES NOT WANT THE INJECTION BECAUSE HE HAD IT YESTERDAY AND WANTS TO DISCUSS THIS WITH THE MD. PATIENT EDUCATED ON ANTICOAGULATION PROPHYLAXIS. WILL CONTINUE TO MONITOR.
[2017-05-22 04:00] VITALS: BP 111/61
--- NOTE | 2017-05-22 06:29 | NUR ---
RN CLOSING NOTES PATIENT RESTING IN BED, EASILY AROUSABLE TO NAME. A/O X3. NO SIGNS OF DISTRESS OR DISCOMFORT. BREATHING EVEN AND UNLABORED. IV ACCESS IN LFA WITH NS INFUSING, PATENT AND INTACT, NO SIGNS OF REDNESS OR INFILTRATION. HAS F/C INTACT, WITH CLOUDY YELLOW FLUID NOTED. NO SIGNIFICANT CHANGES THROUGH THE NIGHT. PATIENT KEPT CLEAN DRY AND COMFORTABLE. REPOSITIONED Q2H AND PRN. BED IN LOW LOCKED POSITION WITH SIDE RAILS X3. CALL LIGHT WITHIN REACH. WILL ENDORSE TO AM SHIFT FOR MAHAD.
[2017-05-22 07:00] LABS: BASOPHILS % (AUTO) 0.4 % (0.0-2.0); EOSINOPHILS # (AUTO) 0.1 /CMM (0.0-0.7); HEMATOCRIT 41 % (39-51); HEMOGLOBIN 13.2 g/dL (13.5-17.5); LYMPHOCYTES # (AUTO) 1.9 /CMM (0.8-4.8); LYMPHOCYTES % (AUTO) 18.5 % (20.0-44.0); MEAN CORPUSCULAR HEMOGLOBIN 29 PG (26.0-33.0); MEAN CORPUSCULAR HGB CONC 32 g/dl (31.0-36.0); MEAN CORPUSCULAR VOLUME 89 fL (80-96); MONOCYTES # (AUTO) 1.9 /CMM (0.1-1.30); MONOCYTES % (AUTO) 18.8 % (2.0-12.0); NEUTROPHILS # (AUTO) 6.3 /CMM (1.8-8.9); NEUTROPHILS % (AUTO) 61.3 % (43.0-81.0); PLATELET COUNT (AUTO) 244 /CMM (150-450); RDW COEFFICIENT OF VARIATION 16.3 (11.5-15.0); RED BLOOD CELL COUNT(AUTO) 4.64 MIL/uL (4.5-6.0); WHITE BLOOD COUNT (AUTO) 10.3 K/uL (4.3-11.0)
--- NOTE | 2017-05-22 07:00 | NUR ---
MS RN NOTE: RECEIVED PATIENT AWAKE IN BED, A&OX3, DENIES PAIN. ON RA, RESPIRATIONS EVEN AND UNLABORED WITH NO SOB NOTED. LFA INTACT AND PATENT. KURTZ CATH DRAINING TO GRAVITY WITH YELLOW CLOUDY URINE. BED LOW, LOCKED, X2 SIDE RAILS UP WITH CALL LIGHT WITHIN REACH. CDIFF ISOLATION PRECAUTIONS IN PLACE. WILL CONT TO MONITOR.
[2017-05-22 07:22] LABS: CARBON DIOXIDE 24 mmol/L (21-32); CHLORIDE 111 mmol/L (98-107); CREATININE 1.1 mg/dL (0.6-1.3); GLUCOSE 86 mg/dL (74-106); POTASSIUM 4.1 mmol/L (3.5-5.1); SODIUM SERUM 143 mmol/L (136-145); UREA NITROGEN, BLOOD 29 mg/dL (7-18)
[2017-05-22 08:00] VITALS: BP 108/62
[2017-05-22 10:14] LABS: BAND % (MANUAL) 2 % (0.0-5.0); EOSINOPHILS % (MANUAL) 2 % (0-4); LYMPHOCYTES % (MANUAL) 14 % (16-48); MONOCYTES % (MANUAL) 23 % (0-11.0); NEUTROPHILS % (MANUAL) 59 (42-76)
--- NOTE | 2017-05-22 12:50 | NUR ---
MS RN NOTE: PT AT BEDSIDE. REPORT BY PT: PATIENT AMBULATED 90FT WITH FWW, STANDBY ASSIST.
[2017-05-22 16:00] VITALS: BP 94/67
--- NOTE | 2017-05-22 19:00 | NUR ---
MS RN NOTE: NO ACUTE CHANGES DURING SHIFT. PATIENT REMAINED A&OX3, DENIED PAIN. RFA PATENT AND INTACT. F/C INTACT AND PATENT. ORDERS CARRIED OUT. BED LOW, LOCKED, X2 SIDE RAILS UP WITH CALL LIGHT WITHIN REACH. WILL ENDORSE TO FERRY TERMINAL SUPERVISOR NURSE FOR MAHAD.
--- NOTE | 2017-05-22 19:30 | NUR ---
MS1/RN RECEIVE PATIENT AWAKE, ALERT, ORIENTED, COMFORTABLE, NO C/O PAIN, NO DISTRESS NOTED, CALL LIGHT IN REACH. WILL MONITOR.
[2017-05-22 20:00] VITALS: BP 108/63
[2017-05-23 04:00] VITALS: BP 109/64
--- NOTE | 2017-05-23 07:00 | NUR ---
MS RN NOTE: RECEIVED PATIENT RESTING COMFORTABLY IN BED, EASILY AROUSABLE TO NAME, A&OX3, DENIES PAIN. ON RA, RESPIRATIONS EVEN AND UNLABORED WITH NO SOB NOTED. RFA INTACT AND PATENT. KURTZ CATH DRAINING TO GRAVITY WITH YELLOW CLOUDY URINE. BED LOW, LOCKED, X2 SIDE RAILS UP WITH CALL LIGHT WITHIN REACH. CDIFF ISOLATION PRECAUTIONS IN PLACE. WILL CONT TO MONITOR.
--- NOTE | 2017-05-23 07:14 | NUR ---
MS1/RN SLEEPING AT THIS TIME, AROUSABLE, APPEAR COMFORTABLE, NO SIGNS OF DISTRESS NOTED, CALL LIGHT IN REACH. ALL NEEDS ATTENDED AT THIS TIME. WILL CONTINUE TO MONITOR.
[2017-05-23 08:00] VITALS: BP 128/65
[2017-05-23] MEDS ORDERED: VANC125C11 PO (12:47)
[2017-05-23] MEDS ORDERED: SULF1TAB48 PO (12:47)
--- NOTE | 2017-05-23 18:40 | NUR ---
DISCHARGE NOTE: PATIENT LEFT TO HOME IN STABLE CONDITION. VS: 97.4 TEMP, 58 HR, 18RR, 96% O2SAT, 114/64 BP. ORDERS CARRIED OUT. BELONGINGS LIST AND D/C PAPERWORK SIGNED. REFUSED PICTURES. BELONGINGS RETURNED. ORDERS CARRIED OUT. PATIENT LEFT THE UNIT AT 1840 VIA WALKER.
== END 2017-05-23 19:13 | disposition home or self-care (01) | DRG 371 ==
LOC: ER 12:44 → MEDSG1 14:40
DX: A04.7 Enterocolitis due to Clostridium difficile (principal); N17.0 Acute kidney failure with tubular necrosis; N39.0 Urinary tract infection, site not specified; E86.9 Volume depletion, unspecified; Z79.82 Long term (current) use of aspirin; B96.4 Proteus (mirabilis) (morganii) as the cause of diseases classified elsewhere; I10 Essential (primary) hypertension; I25.10 Atherosclerotic heart disease of native coronary artery without angina pectoris; Z87.440 Personal history of urinary (tract) infections; I25.2 Old myocardial infarction
CPT/HCPCS: 36415; 80048-TC; 80061-TC; 80076-TC; 81000-TC; 82962-TC; 83605-TC; 83735-TC; 84100-TC; 84443-TC; 85025-TC; 87040-TC; 87081-TC; 87086-TC; 87186-TC; 97116-TC; 97530-TC; A4606; A6402; J0696; J1650; J7030; J7040; J7060; Z7610

== ENCOUNTER 2017-06-24 22:06 | Emergency (ER) | payer MEDICARE ==
[~2017-06-24] VITALS: Ht 157.5 cm; Wt 43.1 kg
[~2017-06-24 22:06] MED LIST changes: -CHOL100044 PO; +MULT-213 PO; +SULF1TAB48 PO; +VANC125C11 PO
[2017-06-24 22:23] VITALS: BP 134/67
--- NOTE | 2017-06-24 22:58 | NUR ---
CALLED PT IN [place], NO RESPONSE
== END 2017-06-24 23:45 | disposition left against medical advice (07) ==
LOC: ER 22:09
DX: Z53.21 Procedure and treatment not carried out due to patient leaving prior to being seen by health care provider (principal)
CPT/HCPCS: A4606; Z7610

== ENCOUNTER 2017-06-28 09:31 | Emergency (ER) | payer MEDICARE ==
[~2017-06-28] VITALS: Ht 157.5 cm; Wt 46.7 kg
--- NOTE | 2017-06-28 09:45 | NUR ---
PT BIB SON D/T CATHETER MALFUNCTION- POSS UTI, LOWER ABDOMINAL PAIN. NAD NOTED. VSS. CAME IN WITH DIRTY AND MALFUNCTIONING FC. SEEN BY MD FOR EVAL. SAFETY AND COMFORT MEASURES PROVIDED. WILL MONITOR.
[2017-06-28] MEDS ORDERED: ACETAMINOPHEN 325 MG TABLET PO ONE (10:00)
[2017-06-28] MEDS ORDERED: ACETAMINOPHEN 325 MG TABLET ONE (10:03)
--- NOTE | 2017-06-28 10:15 | NUR ---
OLD FC DC'C. NEW FC INITIATED- URINE SAMPLE OBTAINED, SENT.
[2017-06-28 10:23] LABS: APPEARANCE,URINE Cloudy (CLEAR); BILIRUBIN,URINE Negative (NEGATIVE); BLOOD, URINE Moderate Ery/uL (NEGATIVE); COLOR,URINE Yellow (YELLOW); KETONES,URINE Negative (NEGATIVE); LEUKOCYTE ESTERASE ,URINE Large (NEGATIVE); NITRITE, URINE Positive (NEGATIVE); PH,URINE 8.5 (5.0-8.0); PROTEIN,URINE 30 mg/dl (NEGATIVE); UGLUCOSE Negative (NEGATIVE); UROBILINOGEN,URINE 0.2 EU/dL (0.2)
[2017-06-28 10:26] LABS: BASOPHILS # (AUTO) 0.3 /CMM (0.0-0.2); BASOPHILS % (AUTO) 1.9 % (0.0-2.0); EOSINOPHILS # (AUTO) 0.1 /CMM (0.0-0.7); HEMATOCRIT 40 % (39-51); HEMOGLOBIN 13.4 g/dL (13.5-17.5); LYMPHOCYTES # (AUTO) 0.9 /CMM (0.8-4.8); LYMPHOCYTES % (AUTO) 6.5 % (20.0-44.0); MEAN CORPUSCULAR HEMOGLOBIN 29 PG (26.0-33.0); MEAN CORPUSCULAR HGB CONC 33 g/dl (31.0-36.0); MEAN CORPUSCULAR VOLUME 88 fL (80-96); MONOCYTES # (AUTO) 0.9 /CMM (0.1-1.30); MONOCYTES % (AUTO) 6.9 % (2.0-12.0); NEUTROPHILS # (AUTO) 11.3 /CMM (1.8-8.9); NEUTROPHILS % (AUTO) 83.7 % (43.0-81.0); PLATELET COUNT (AUTO) 486 /CMM (150-450); WHITE BLOOD COUNT (AUTO) 13.5 K/uL (4.3-11.0)
[2017-06-28 10:31] LABS: CALCIUM, SERUM 8.6 mg/dL (8.5-10.1); CARBON DIOXIDE 26 mmol/L (21-32); CHLORIDE 104 mmol/L (98-107); CREATININE 1.5 mg/dL (0.6-1.3); GLUCOSE 125 mg/dL (74-106); POTASSIUM 4.1 mmol/L (3.5-5.1); SODIUM SERUM 138 mmol/L (136-145); UREA NITROGEN, BLOOD 29 mg/dL (7-18)
[2017-06-28 10:37] LABS: ALANINE AMINOTRANSFERASE 19 U/L (12-78); ALBUMIN 3.1 g/dL (3.4-5.0); ALKALINE PHOSPHATASE 82 U/L (46-116); ASPARTATE AMINOTRANSFERASE 16 U/L (15-37); BILIRUBIN,DIRECT 0.1 mg/dL (0.0-0.2); BILIRUBIN,TOTAL 0.3 mg/dL (0.2-1.0); TOTAL PROTEIN, SERUM 6.6 g/dL (6.4-8.2)
[2017-06-28 10:46] LABS: BACTERIA,URINE 3+ /HPF (None Seen)
[2017-06-28 10:47] LABS: SQUAMOUS EPITHELIAL CELL,UR Few /HPF (None Seen)
[2017-06-28] MEDS ORDERED: CEFTRIAXONE 1GM BAG (ER ONLY) 1 GM/50 ML PIGGYBACK IV ONE (11:00)
[2017-06-28] MEDS ORDERED: CEFTRIAXONE 1 G VIAL ONE (11:24)
[2017-06-28] MEDS ORDERED: CEFTRIAXONE 1GM BAG (ER ONLY) 50 ML IV ONE (11:25)
[2017-06-28 11:33] LABS: BAND % (MANUAL) 4 % (0.0-5.0); LYMPHOCYTES % (MANUAL) 7 % (16-48); MONOCYTES % (MANUAL) 4 % (0-11.0); NEUTROPHILS % (MANUAL) 85 (42-76)
--- NOTE | 2017-06-28 12:08 | NUR ---
IV removed. Catheter intact and site benign. Pressure and 4x4 applied to site. No bleeding noted.
--- NOTE | 2017-06-28 12:10 | NUR ---
Patient discharged to home in stable condition. Written and verbal after care instructions given. Patient verbalizes understanding of instruction.
[2017-06-28 12:18] VITALS: BP 110/79
== END 2017-06-28 10:52 | disposition home or self-care (01) ==
LOC: ER 09:33
DX: Z46.6 Encounter for fitting and adjustment of urinary device (principal); N39.0 Urinary tract infection, site not specified; I10 Essential (primary) hypertension; I25.10 Atherosclerotic heart disease of native coronary artery without angina pectoris; Z98.890 Other specified postprocedural states; Z88.1 Allergy status to other antibiotic agents; Z79.82 Long term (current) use of aspirin
CPT/HCPCS: 36415; 51702; 80048; 80076; 81001; 85025; 87077; 87086; 87186; 96365; 99284; A4606; J0696; 81000-TC; Z7610

== ENCOUNTER 2017-08-12 22:28 | Emergency (ER) | payer MEDICARE ==
[~2017-08-12] VITALS: Ht 157.5 cm; Wt 47.6 kg
--- NOTE | 2017-08-12 22:40 | NUR ---
TO BED 4 AN 86 YO MALE PATIENT BIB SON FOR "POSSIBLE UTI AND KURTZ CATHETER CHANGE." NAD NOTED. VSS. AFEBRILE. PATIENT IS ALERT AND RESPONSIVE. COMFORT MEASURE RENDERED.
--- NOTE | 2017-08-12 22:50 | NUR ---
urine collected via [place], sent to lab.
--- NOTE | 2017-08-12 22:55 | NUR ---
KURTZ CATH CHANGED ASEPTICALLY, NEW 16F KURTZ IN PLACE, DRAINING ORANGE-REDDISH URINE FREELY. COLLECTED URINE. REMINDED PATIENT ABOUT KURTZ CATHETER CARE AT HOME.
[2017-08-12 23:42] LABS: APPEARANCE,URINE CLOUDY (CLEAR); BILIRUBIN,URINE NEGATIVE (NEGATIVE); BLOOD, URINE 3+ Ery/uL (NEGATIVE); COLOR,URINE RED (YELLOW); KETONES,URINE NEGATIVE (NEGATIVE); LEUKOCYTE ESTERASE ,URINE 3+ (NEGATIVE); NITRITE, URINE POSITIVE (NEGATIVE); PROTEIN,URINE 2+ mg/dl (NEGATIVE); UGLUCOSE NEGATIVE (NEGATIVE); UROBILINOGEN,URINE 0.2 EU/dL (0.2)
[2017-08-12 23:52] LABS: PH,URINE 8.5 (5.0-8.0)
[2017-08-12 23:55] LABS: BACTERIA,URINE Few /HPF (None Seen); MUCUS,URINE Few /LPF (None Seen); RBC,URINE TOO NUMEROUS TO COUN /HPF (0-2); SQUAMOUS EPITHELIAL CELL,UR Few /HPF (None Seen)
[2017-08-12 23:56] LABS: WBC,URINE 51-80 /HPF (0-3)
--- NOTE | 2017-08-13 00:33 | NUR ---
Patient discharged to home in stable condition. Written and verbal after care instructions given. Patient verbalizes understanding of instruction. Patient is ambulatory using the walker, no further complaints.
[2017-08-13 00:34] VITALS: BP 154/87
== END 2017-08-13 00:34 | disposition home or self-care (01) ==
LOC: ER 22:29
DX: N39.0 Urinary tract infection, site not specified (principal); R33.8 Other retention of urine; I10 Essential (primary) hypertension; I25.10 Atherosclerotic heart disease of native coronary artery without angina pectoris; Z88.1 Allergy status to other antibiotic agents; Z79.82 Long term (current) use of aspirin
CPT/HCPCS: 81000-TC; 87086-TC; 87186-TC; A4606; Z7610

== ENCOUNTER 2017-09-13 19:06 | Inpatient (IN) | payer MEDICARE ==
[~2017-09-13] VITALS: Ht 147.3 cm; Wt 53.5 kg
[~2017-09-13 19:06] MED LIST changes: +ASPI-1169 PO; -ASPI81TA2 PO; -CRAN425C PO; +CRAN425C6 PO
--- NOTE | 2017-09-13 19:18 | NUR ---
PT TO ER BED 6. PT BIB FAMILY C/O GENERALIZED WEAKNESS AND NEEDING A F/C CHANGE X 2 DAYS. PT PLACED IN GOWN AND ON PAINTINGS CONSERVATOR. VSS/RESP EVEN UNLABORED/NAD NOTED/SKIN WARM AND DRY/DENIES N-V-D/AOX4. AWAITING MD GASTELUM.
--- NOTE | 2017-09-13 19:57 | NUR ---
20G IV TO L FA X 1 ATTEMPT USING [employer]. BLOOD CULT X 2 AND BLOOD HANDED OVER TO THE LAB AT BEDSIDE.
[2017-09-13 19:59] LABS: BASOPHILS # (AUTO) 0.1 /CMM (0.0-0.2); BASOPHILS % (AUTO) 0.5 % (0.0-2.0); HEMATOCRIT 43 % (39-51); HEMOGLOBIN 14.9 g/dL (13.5-17.5); LYMPHOCYTES # (AUTO) 0.5 /CMM (0.8-4.8); LYMPHOCYTES % (AUTO) 2.7 % (20.0-44.0); MEAN CORPUSCULAR HEMOGLOBIN 30 PG (26.0-33.0); MEAN CORPUSCULAR HGB CONC 34 g/dl (31.0-36.0); MEAN CORPUSCULAR VOLUME 87 fL (80-96); MONOCYTES # (AUTO) 1.6 /CMM (0.1-1.30); NEUTROPHILS # (AUTO) 15.6 /CMM (1.8-8.9); NEUTROPHILS % (AUTO) 87.8 % (43.0-81.0); PLATELET COUNT (AUTO) 283 /CMM (150-450); RDW COEFFICIENT OF VARIATION 13.1 (11.5-15.0); RED BLOOD CELL COUNT(AUTO) 4.96 MIL/uL (4.5-6.0); WHITE BLOOD COUNT (AUTO) 17.8 K/uL (4.3-11.0)
[2017-09-13] MEDS ORDERED: IV NS 0.9% 1,000 ML BAG IV ONE ×2 (20:00→20:30)
--- NOTE | 2017-09-13 20:10 | NUR ---
16 FR F/C INSERTED USING AIRFRAME AND POWER PLANT MECHANIC, 900ML PINK COLORED URINE OUTPUT. SPECIMEN OBTAINED AND SENT TO THE LAB.
[2017-09-13 20:13] LABS: INR 0.94 (0.87-1.13); PROTHROMBIN TIME 9.8 SECS (9.5-12.7)
[2017-09-13 20:15] LABS: ALANINE AMINOTRANSFERASE 19 U/L (12-78); ALBUMIN 3.3 g/dL (3.4-5.0); ALKALINE PHOSPHATASE 105 U/L (46-116); ASPARTATE AMINOTRANSFERASE 17 U/L (15-37); BILIRUBIN,DIRECT 0.1 mg/dL (0.0-0.2); BILIRUBIN,TOTAL 0.5 mg/dL (0.2-1.0); CALCIUM, SERUM 9.5 mg/dL (8.5-10.1); CARBON DIOXIDE 19 mmol/L (21-32); CHLORIDE 107 mmol/L (98-107); CREATININE 5.9 mg/dL (0.6-1.3); GLUCOSE 155 mg/dL (74-106); POTASSIUM 5.7 mmol/L (3.5-5.1); SODIUM SERUM 140 mmol/L (136-145); TOTAL PROTEIN, SERUM 7.7 g/dL (6.4-8.2)
--- NOTE | 2017-09-13 20:15 | NUR ---
PT TO CT VIA STRETCHER, VSS.
[2017-09-13 20:17] LABS: UREA NITROGEN, BLOOD 96 mg/dL (7-18)
[2017-09-13 20:21] LABS: APPEARANCE,URINE Cloudy (CLEAR); BILIRUBIN,URINE Negative (NEGATIVE); BLOOD, URINE Large Ery/uL (NEGATIVE); COLOR,URINE Red (YELLOW); KETONES,URINE Trace (NEGATIVE); LEUKOCYTE ESTERASE ,URINE Small (NEGATIVE); NITRITE, URINE Positive (NEGATIVE); PROTEIN,URINE >=300 mg/dl (NEGATIVE); UGLUCOSE Negative (NEGATIVE); UROBILINOGEN,URINE 0.2 EU/dL (0.2)
[2017-09-13 20:22] LABS: PH,URINE >9.0 (5.0-8.0)
[2017-09-13] MEDS ORDERED: CEFTRIAXONE 1GM BAG (ER ONLY) 1 GM/50 ML PIGGYBACK IV ONE (20:30)
--- NOTE | 2017-09-13 20:30 | NUR ---
PT BACK FROM CT.
[2017-09-13 20:32] LABS: BACTERIA,URINE Many /HPF (None Seen); RBC,URINE 21-50 /HPF (0-2); SQUAMOUS EPITHELIAL CELL,UR Moderate /HPF (None Seen); URINE AMORPHOUS PHOSPHATES Moderate /HPF (None Seen)
[2017-09-13 20:46] LABS: BAND % (MANUAL) 6 % (0.0-5.0); LYMPHOCYTES % (MANUAL) 8 % (16-48); MONOCYTES % (MANUAL) 3 % (0-11.0); NEUTROPHILS % (MANUAL) 83 (42-76)
[2017-09-13] MEDS ORDERED: CEFTRIAXONE 1 G VIAL ONE (21:14)
[2017-09-13] MEDS ORDERED: ACETAMINOPHEN 325 MG TABLET PO PRN (21:30)
[2017-09-13] MEDS ORDERED: MAG HYDROX/AL HYDROX/SIMETH 30 ML UDC PO PRN (21:30)
[2017-09-13] MEDS: ASPIRIN 325 MG TABLET PO SCH (21:30)
[2017-09-13] MEDS ORDERED: HYDROCODONE/APAP 5/325MG 1 EACH TABLET PO PRN (21:30)
[2017-09-13] MEDS ORDERED: Z GUARD REMEDY 2 OZ OINT TP PRN (21:30)
[2017-09-13] MEDS ORDERED: MAGNESIUM HYDROXIDE 30 ML UDC PO PRN (21:30)
[2017-09-13] MEDS ORDERED: ZOLPIDEM TARTRATE 5 MG TABLET PO PRN (21:30)
[2017-09-13] MEDS ORDERED: ONDANSETRON HCL/PF 4 MG/2 ML VIAL IVP PRN (21:30)
--- NOTE | 2017-09-13 21:45 | NUR ---
PT RESTING QUIETLY, VSS/RESP EVEN UNLABORED.
--- NOTE | 2017-09-13 22:45 | NUR ---
ULTRASOUND AT BEDSIDE.
--- NOTE | 2017-09-13 22:50 | NUR ---
REPORT GIVEN TO ZENON FRYE FOR MAHAD.
--- NOTE | 2017-09-13 22:56 | NUR ---
PT TRANSPORTED TO [place] [id number] VIA STRETCHER WITH RN, ACLS PROTOCOL.
[2017-09-13 23:00] VITALS: BP 132/71
--- NOTE | 2017-09-13 23:00 | NUR ---
TELE/RN NOTES NEW ADMITTED PATIENT RECEIVED FROM ER ON A GURNEY REPORTED WEAKNESS BY FAMILY MEMBER, WITH KURTZ CATHETER AND WAS CLOGGED, KURTZ WASPLACED WITH 1000ML PER ER, 16 KOREAN WITH BLOODY URINE OUT PUT, DX OF SEPSIS , UTI, DEHYDRATION, SEPSIS WITH HX OF HTM, CAD, GI AND HERNIA, ALLERGIC TO CIPROFLOXACIN, TELE READING AT SINUS RHYTHM WITH LUIS JAVIER TO AM RN
[2017-09-14 01:44] VITALS: BP 132/71
[2017-09-14] MEDS ORDERED: ASPIRIN EC 325 MG TABLET.DR PO ONE (02:02)
[2017-09-14 04:00] VITALS: BP 109/56
[2017-09-14] MEDS: IV NS 0.9% 1,000 ML IV PRN (05:39)
--- NOTE | 2017-09-14 07:21 | NUR ---
MS/RN CLOSING NOTES PATIENT IN BED, ABLE TO SLEEP DURING THE NIGHT BUT EASILY AWAKENS, BODY SKIN CHECK, RESPIRATIONS EVEN AND UNLABORED, IN HYDRATION PROVIDED, BED IN LOCK POSITION, CALL LIGHTS WITHIN REACH, WILL ENDORSE TO AM RN.
[2017-09-14 07:30] LABS: CALCIUM, SERUM 8.4 mg/dL (8.5-10.1); CARBON DIOXIDE 22 mmol/L (21-32); CHLORIDE 110 mmol/L (98-107); CREATININE 3.9 mg/dL (0.6-1.3); GLUCOSE 103 mg/dL (74-106); MAGNESIUM 2.2 mg/dL (1.8-2.4); PHOSPHORUS 4.7 mg/dL (2.5-4.9); POTASSIUM 4.7 mmol/L (3.5-5.1); SODIUM SERUM 141 mmol/L (136-145)
[2017-09-14 07:34] LABS: BASOPHILS % (AUTO) 0.2 % (0.0-2.0); HEMATOCRIT 33 % (39-51); HEMOGLOBIN 11.3 g/dL (13.5-17.5); LYMPHOCYTES # (AUTO) 1.1 /CMM (0.8-4.8); LYMPHOCYTES % (AUTO) 7.5 % (20.0-44.0); MEAN CORPUSCULAR HEMOGLOBIN 30 PG (26.0-33.0); MEAN CORPUSCULAR HGB CONC 34 g/dl (31.0-36.0); MEAN CORPUSCULAR VOLUME 90 fL (80-96); MONOCYTES # (AUTO) 1.7 /CMM (0.1-1.30); MONOCYTES % (AUTO) 12.1 % (2.0-12.0); NEUTROPHILS # (AUTO) 11.3 /CMM (1.8-8.9); NEUTROPHILS % (AUTO) 80.2 % (43.0-81.0); PLATELET COUNT (AUTO) 210 /CMM (150-450); RED BLOOD CELL COUNT(AUTO) 3.71 MIL/uL (4.5-6.0); WHITE BLOOD COUNT (AUTO) 14.1 K/uL (4.3-11.0)
[2017-09-14 07:38] LABS: UREA NITROGEN, BLOOD 86 mg/dL (7-18)
[2017-09-14 08:00] VITALS: BP 102/61
--- NOTE | 2017-09-14 08:00 | NUR ---
rn notes received patient in the bed a/o x3, no respiratory distress, v/s taken stable, no c/o pain at this time, Carl catheter drain yellow output, iv line on left fa intact, patient refused pain at this time, call light within to reach, encouraged to express feelings and concerns, safety precaution maintained all the time.
[2017-09-14] MEDS: METOPROLOL TARTRATE 25 MG TABLET PO SCH ×2 (09:00→21:15)
[2017-09-14] MEDS ORDERED: ASPIRIN 81 MG TAB.CHEW PO SCH (09:00)
[2017-09-14] MEDS: ASPIRIN 325 MG TABLET PO SCH (09:43)
[2017-09-14] MEDS: LACTOBACILLUS RHAMNOSUS GG 1 EACH CAP.SPRINK PO SCH ×2 (09:43→17:46)
[2017-09-14] MEDS: MULTIVIT, IRON, MIN NO. 8, FA 1 TAB PO SCH (09:43)
--- NOTE | 2017-09-14 10:16 | NUR ---
RN NOTES PER DR ESTRELLA PATIENT D/C TELE TO MED/SURGE. REMOVED TELE MONITOR, PATIENT MED COMPLIANT, HELD BP MEDICATION BECAUSE BP 99/50, P-81, CALL LIGHT WITHIN TO REACH. CONTINUED MONITORING.
--- NOTE | 2017-09-14 14:00 | NUR ---
rn notes patient in the bed, no acute distress, resting quietly, needs attended anticipated, patient refused p;ain at this time, f/c drain yellow output, patient turn and reposition self in the bed, call light within to reach, continued monitoring.
[2017-09-14 16:00] VITALS: BP 123/77
--- NOTE | 2017-09-14 18:19 | NUR ---
rn notes patient in the bed eating, no acute distress, no respiratory distress, call light within to reach, safety precaution maintained all the time. endorsed oncoming nurse for continuation of care.
[2017-09-14 20:00] VITALS: BP 112/59
--- NOTE | 2017-09-14 20:00 | NUR ---
rECIEVED mR. Hughes AWAKE AND ALERT x4. sMILING ENJOYS CONVERSING. 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 HE STATES HE FEELS GREAT. APPLEJUICE SERVED AND CONSUMED 100%. KURTZ DRAINAGE APPLE CIDER IN COLOR. SKIN CLEAN AND INTACT. NOTED BY HIS BED A RED PERSONAL WALKER.
[2017-09-14 20:46] VITALS: BP 112/59
[2017-09-14] MEDS: CEFTRIAXONE 1 G in IV D5W 50 ML IV SCH (21:14)
--- NOTE | 2017-09-15 03:21 | NUR ---
remains alert and orientated x4.talkative about the news, himself, will ask questions to promote conversation. good eye contact. [place] murky tea colored. Enjoys driinking juice and seems to enjoy drinking water.he had a good bm incontinent. EVAN CORRAL
[2017-09-15] MEDS: IV NS 0.9% 1,000 ML IV PRN ×2 (04:10→19:04)
[2017-09-15 06:42] LABS: BASOPHILS % (AUTO) 0.3 % (0.0-2.0); EOSINOPHILS # (AUTO) 0.1 /CMM (0.0-0.7); EOSINOPHILS % (AUTO) 0.9 % (0.0-6.0); HEMATOCRIT 33 % (39-51); LYMPHOCYTES # (AUTO) 1.5 /CMM (0.8-4.8); LYMPHOCYTES % (AUTO) 15.1 % (20.0-44.0); MEAN CORPUSCULAR HEMOGLOBIN 30 PG (26.0-33.0); MEAN CORPUSCULAR HGB CONC 33 g/dl (31.0-36.0); MEAN CORPUSCULAR VOLUME 89 fL (80-96); MONOCYTES # (AUTO) 1.2 /CMM (0.1-1.30); MONOCYTES % (AUTO) 12.3 % (2.0-12.0); NEUTROPHILS % (AUTO) 71.4 % (43.0-81.0); PLATELET COUNT (AUTO) 221 /CMM (150-450); RDW COEFFICIENT OF VARIATION 14.3 (11.5-15.0); WHITE BLOOD COUNT (AUTO) 9.8 K/uL (4.3-11.0)
[2017-09-15 07:14] LABS: CALCIUM, SERUM 8.4 mg/dL (8.5-10.1); CARBON DIOXIDE 22 mmol/L (21-32); CHLORIDE 113 mmol/L (98-107); CREATININE 2.5 mg/dL (0.6-1.3); GLUCOSE 92 mg/dL (74-106); MAGNESIUM 2.1 mg/dL (1.8-2.4); PHOSPHORUS 3.5 mg/dL (2.5-4.9); POTASSIUM 4.8 mmol/L (3.5-5.1); SODIUM SERUM 144 mmol/L (136-145); UREA NITROGEN, BLOOD 70 mg/dL (7-18)
[2017-09-15 08:00] VITALS: BP 132/78
--- NOTE | 2017-09-15 08:00 | NUR ---
RN NOTES RECEIVED PATIENT IN THE BED. A/O X3/4, HAS NO C/O RESPIRATORY DISTRESS, V/S TAKEN STABLE, INFUSING IV ON LEFT FOREARM, SCHEDULED MEDICATION ADMINISTER, F/C DRAIN YELLOW URINE WITH SEDIMENTED, ENCOURAGED TO EXPRESS FEELINGS AND CONCERNS, ALSO ENCOURAGED TO INCREASE FLUID INTAKE, CALL LIGHT WITHIN TO REACH. PATIENT TURN AD REPOSITION SELF IN THE BED, CALL LIGHT WITHIN TO REACH, CONTINUED MONITORING.
[2017-09-15] MEDS: LACTOBACILLUS RHAMNOSUS GG 1 EACH CAP.SPRINK PO SCH ×2 (09:55→18:39)
[2017-09-15] MEDS: ASPIRIN 325 MG TABLET PO SCH (09:55)
[2017-09-15] MEDS: MULTIVIT, IRON, MIN NO. 8, FA 1 TAB PO SCH (09:55)
[2017-09-15] MEDS: METOPROLOL TARTRATE 25 MG TABLET PO SCH ×2 (09:56→21:31)
--- NOTE | 2017-09-15 13:03 | NUR ---
RN NOTES PATIENT IN THE BED NO C/O PAIN AT THIS TIME, STABLE, EATING, CALL LIGHT WITHIN TO REACH SEEN BY DR [place]. CONTINUED MONITORING.
[2017-09-15 16:00] VITALS: BP 120/53
--- NOTE | 2017-09-15 18:30 | NUR ---
RN NOTES PATIENT IN THE BED, NO ACUTE DISTRESS, IV LINE ON LEFT FOREARM INTACT NS 125 ML/HR, PATIENT REFUSED PAIN AT THIS TIME, F/C DRAIN YELLOW OUTPUT WITH SEDIMENTS, ENCOURAGED TO INCREASE FLUID INTAKE, NEEDS ATTENDED AND ANTICIPATED, CALL LIGHT WITHIN TO REACH, ENDORSED ONCOMING NURSE FOR CONTINUATION OF CARE.
--- NOTE | 2017-09-15 19:25 | NUR ---
RN OPEN NOTES RECEIVED PATIENT AWAKE IN BED. A/O X3. NO SIGNS OF DISTRESS OR DISCOMFORT. BREATHING EVEN AND UNLABORED. IV ACCESS IN LFA WITH NS INFUSING, PATENT AND INTACT, NO SIGNS OF REDNESS OR INFILTRATION. HAS F/C INTACT WITH CLOUDY SEDIMENT GABY FLUID NOTED. BED IN LOW LOCKED POSITION WITH SIDE RAILS X3. CALL LIGHT WITHIN REACH. WILL CONTINUE TO MONITOR.
[2017-09-15 20:00] VITALS: BP 116/57
[2017-09-15] MEDS: CEFTRIAXONE 1 G in IV D5W 50 ML IV SCH (21:31)
[2017-09-16] MEDS: IV NS 0.9% 1,000 ML IV PRN ×2 (06:32→18:11)
[2017-09-16 06:42] LABS: BASOPHILS % (AUTO) 0.3 % (0.0-2.0); EOSINOPHILS # (AUTO) 0.1 /CMM (0.0-0.7); EOSINOPHILS % (AUTO) 1.8 % (0.0-6.0); HEMATOCRIT 32 % (39-51); LYMPHOCYTES # (AUTO) 1.6 /CMM (0.8-4.8); LYMPHOCYTES % (AUTO) 20.2 % (20.0-44.0); MEAN CORPUSCULAR HEMOGLOBIN 30 PG (26.0-33.0); MEAN CORPUSCULAR HGB CONC 34 g/dl (31.0-36.0); MEAN CORPUSCULAR VOLUME 89 fL (80-96); MONOCYTES # (AUTO) 0.9 /CMM (0.1-1.30); MONOCYTES % (AUTO) 11.5 % (2.0-12.0); NEUTROPHILS # (AUTO) 5.2 /CMM (1.8-8.9); NEUTROPHILS % (AUTO) 66.2 % (43.0-81.0); PLATELET COUNT (AUTO) 232 /CMM (150-450); RDW COEFFICIENT OF VARIATION 13.8 (11.5-15.0); RED BLOOD CELL COUNT(AUTO) 3.65 MIL/uL (4.5-6.0); WHITE BLOOD COUNT (AUTO) 7.9 K/uL (4.3-11.0)
--- NOTE | 2017-09-16 06:51 | NUR ---
RN CLOSING NOTES PATIENT AWAKE IN BED. A/O X3. NO SIGNS OF DISTRESS OR DISCOMFORT. BREATHING EVEN AND UNLABORED. IV ACCESS IN LFA WITH NS INFUSING, PATENT AND INTACT, NO SIGNS OF REDNESS OR INFILTRATION. HAS F/C INTACT WITH CLOUDY GABY FLUID NOTED. ALL NEEDS MET. NO SIGNIFICANT CHANGES THROUGH THE NIGHT. BED IN LOW LOCKED POSITION WITH SIDE RAILS X3. CALL LIGHT WITHIN REACH. WILL ENDORSE TO AM SHIFT FOR MAHAD.
[2017-09-16 06:55] LABS: CALCIUM, SERUM 8.5 mg/dL (8.5-10.1); CARBON DIOXIDE 24 mmol/L (21-32); CHLORIDE 113 mmol/L (98-107); CREATININE 1.7 mg/dL (0.6-1.3); GLUCOSE 94 mg/dL (74-106); MAGNESIUM 1.9 mg/dL (1.8-2.4); PHOSPHORUS 3.2 mg/dL (2.5-4.9); POTASSIUM 4.9 mmol/L (3.5-5.1); SODIUM SERUM 143 mmol/L (136-145); UREA NITROGEN, BLOOD 62 mg/dL (7-18)
[2017-09-16 08:00] VITALS: BP 132/79
--- NOTE | 2017-09-16 08:30 | NUR ---
PT. COOPERATIVE COMPLIANT,VS STABLE.
[2017-09-16] MEDS: LACTOBACILLUS RHAMNOSUS GG 1 EACH CAP.SPRINK PO SCH ×2 (09:13→18:10)
[2017-09-16] MEDS: ASPIRIN 325 MG TABLET PO SCH (09:13)
[2017-09-16] MEDS: METOPROLOL TARTRATE 25 MG TABLET PO SCH ×2 (09:14→21:00)
[2017-09-16] MEDS: MULTIVIT, IRON, MIN NO. 8, FA 1 TAB PO SCH (09:14)
[2017-09-16 16:00] VITALS: BP 119/77
--- NOTE | 2017-09-16 17:30 | NUR ---
DR. JOHN Diaz IN TO SEE PT. ORDERS GIVEN.
--- NOTE | 2017-09-16 19:35 | NUR ---
RN OPEN NOTES RECEIVED PATIENT AWAKE IN BED. A/O X3. NO SIGNS OF DISTRESS OR DISCOMFORT. BREATHING EVEN AND UNLABORED. IV ACCESS IN R HAND WITH NS INFUSING, PATENT AND INTACT, NO SIGNS OF REDNESS OR INFILTRATION. HAS F/C INTACT WITH CLOUDY GABY FLUID NOTED. BED IN LOW LOCKED POSITION WITH SIDE RAILS X3. CALL LIGHT WITHIN REACH. WILL CONTINUE TO MONITOR.
[2017-09-16 20:00] VITALS: BP 113/76
[2017-09-16 20:06] VITALS: BP 113/76
[2017-09-16] MEDS: CEFTRIAXONE 1 G in IV D5W 50 ML IV SCH (21:58)
[2017-09-17 06:35] LABS: BASOPHILS % (AUTO) 0.5 % (0.0-2.0); EOSINOPHILS # (AUTO) 0.3 /CMM (0.0-0.7); EOSINOPHILS % (AUTO) 3.9 % (0.0-6.0); HEMATOCRIT 32 % (39-51); LYMPHOCYTES # (AUTO) 1.7 /CMM (0.8-4.8); LYMPHOCYTES % (AUTO) 25.4 % (20.0-44.0); MEAN CORPUSCULAR HEMOGLOBIN 31 PG (26.0-33.0); MEAN CORPUSCULAR HGB CONC 35 g/dl (31.0-36.0); MEAN CORPUSCULAR VOLUME 89 fL (80-96); MONOCYTES # (AUTO) 0.8 /CMM (0.1-1.30); MONOCYTES % (AUTO) 12.1 % (2.0-12.0); NEUTROPHILS # (AUTO) 3.8 /CMM (1.8-8.9); NEUTROPHILS % (AUTO) 58.1 % (43.0-81.0); PLATELET COUNT (AUTO) 245 /CMM (150-450); RDW COEFFICIENT OF VARIATION 13.9 (11.5-15.0); RED BLOOD CELL COUNT(AUTO) 3.58 MIL/uL (4.5-6.0); WHITE BLOOD COUNT (AUTO) 6.5 K/uL (4.3-11.0)
[2017-09-17 07:06] LABS: ALANINE AMINOTRANSFERASE 25 U/L (12-78); ALBUMIN 2.2 g/dL (3.4-5.0); ALKALINE PHOSPHATASE 66 U/L (46-116); ASPARTATE AMINOTRANSFERASE 17 U/L (15-37); BILIRUBIN,TOTAL 0.2 mg/dL (0.2-1.0); CALCIUM, SERUM 8.2 mg/dL (8.5-10.1); CARBON DIOXIDE 23 mmol/L (21-32); CHLORIDE 115 mmol/L (98-107); CREATININE 1.5 mg/dL (0.6-1.3); GLUCOSE 88 mg/dL (74-106); MAGNESIUM 1.7 mg/dL (1.8-2.4); PHOSPHORUS 3.2 mg/dL (2.5-4.9); POTASSIUM 4.8 mmol/L (3.5-5.1); SODIUM SERUM 146 mmol/L (136-145); TOTAL PROTEIN, SERUM 5.4 g/dL (6.4-8.2); UREA NITROGEN, BLOOD 41 mg/dL (7-18)
[2017-09-17 08:00] VITALS: BP 125/65
[2017-09-17] MEDS: ASPIRIN 325 MG TABLET PO SCH (08:35)
[2017-09-17] MEDS: MULTIVIT, IRON, MIN NO. 8, FA 1 TAB PO SCH (08:35)
[2017-09-17] MEDS: LACTOBACILLUS RHAMNOSUS GG 1 EACH CAP.SPRINK PO SCH ×2 (08:35→17:12)
[2017-09-17] MEDS: METOPROLOL TARTRATE 25 MG TABLET PO SCH (08:41)
[2017-09-17] MEDS: IV NS 0.9% 1,000 ML IV PRN (11:39)
[2017-09-17] MEDS ORDERED: Magnesium 1GM/D5W 100ML PREMIX 100 ML IV SCH (12:06)
--- NOTE | 2017-09-17 13:44 | NUR ---
RN CLOSING NOTES PATIENT AWAKE IN BED. A/O X4. NO SIGNS OF DISTRESS OR DISCOMFORT. BREATHING EVEN AND UNLABORED. IV ACCESS IN R HAND WITH NS INFUSING, PATENT AND INTACT, NO SIGNS OF REDNESS OR INFILTRATION. HAS F/C INTACT WITH CLEAR YELLOW FLUID NOTED. ALL NEEDS MET. NO SIGNIFICANT CHANGES. BED IN LOW LOCKED POSITION WITH SIDE RAILS X3. CALL LIGHT WITHIN REACH. ENDORSED TO NIKOLE YARBROUGH FOR MAHAD.
--- NOTE | 2017-09-17 14:00 | NUR ---
MS RN NOTES RECEIVED REPORT FROM ZENON MEDEL.PATIENT AWAKE IN BED. A/O X3. NO SIGNS OF DISTRESS OR DISCOMFORT. BREATHING EVEN AND UNLABORED. IV ACCESS IN LFA WITH NS INFUSING, PATENT AND INTACT, NO SIGNS OF REDNESS OR INFILTRATION. HAS F/C INTACT DRAINING WITH CLEAR YELLOW GABY URINE NOTED. BED IN LOW LOCKED POSITION WITH SIDE RAILS X3. CALL LIGHT WITHIN REACH. WILL CONTINUE TO MONITOR.
[2017-09-17] MEDS ORDERED: AMOX-430 PO (15:10)
[2017-09-17 15:59] VITALS: BP 109/68
--- NOTE | 2017-09-17 18:00 | NUR ---
DISCHARGE INSTRUCTIONS,MED RECONCILIATION AND PRESCRIPTION HAS BEEN CLARIFIED WITH [facility] AND SPOKE TO JAMI WHO RECEIVED THE EMAILED AUGMENTINE ORDER 4 TABS ONLY.PT DENIES ANY PAIN OR DISTRESS.IV H/L REMOVED TO LEXI ARMS WITHOUT BLEEDING NOTED.SPOKE TO BILL BY PHONE AND WILL COME TO GROUP CONTRACT ANALYST HIS DAD AFTER PICKING UP HIS DAD'S ATB PO.
== END 2017-09-17 18:00 | disposition home or self-care (01) | DRG 871 ==
LOC: ER 19:09 → TELE 22:09 → MED 09-14 10:04
PROVIDERS: ADMIT Internal Medicine; ATTEND Internal Medicine
DX: A41.9 Sepsis, unspecified organism (principal); E43 Unspecified severe protein-calorie malnutrition; I21.A1 Myocardial infarction type 2; G92 Toxic encephalopathy; R53.2 Functional quadriplegia; N17.9 Acute kidney failure, unspecified; N39.0 Urinary tract infection, site not specified; E87.2 Acidosis; N13.9 Obstructive and reflux uropathy, unspecified; I25.10 Atherosclerotic heart disease of native coronary artery without angina pectoris; D63.8 Anemia in other chronic diseases classified elsewhere; I10 Essential (primary) hypertension; R65.20 Severe sepsis without septic shock; N40.1 Benign prostatic hyperplasia with lower urinary tract symptoms; Z87.440 Personal history of urinary (tract) infections; R31.9 Hematuria, unspecified; D72.829 Elevated white blood cell count, unspecified; F03.90 Unspecified dementia, unspecified severity, without behavioral disturbance, psychotic disturbance, mood disturbance, and anxiety; R33.9 Retention of urine, unspecified; R19.5 Other fecal abnormalities; Z68.24 Body mass index [BMI] 24.0-24.9, adult; B96.4 Proteus (mirabilis) (morganii) as the cause of diseases classified elsewhere; T37.0X5A Adverse effect of sulfonamides, initial encounter; Y92.89 Other specified places as the place of occurrence of the external cause
CPT/HCPCS: 36415; 70450-TC; 71045-TC; 76770-TC; 80048-TC; 80053-TC; 80076-TC; 81000-TC; 83605-TC; 83735-TC; 84100-TC; 84484-TC; 85025-TC; 85730-TC; 87040-TC; 87081-TC; 87086-TC; 87186-TC; 87400; 93307-TC; A4216; A4606; J0696; J3475; J7030; J7060; Z7610

== ENCOUNTER 2017-09-22 12:37 | Outpatient (CLI) | payer MEDICARE ==
[~2017-09-22 12:37] MED LIST changes: +AMOX-430 PO; -SULF1TAB48 PO; -VANC125C11 PO
[2017-09-22 13:00] VITALS: BP 133/73
== END 2017-09-22 23:59 | disposition home or self-care (01) ==
LOC: MSC 12:37
PROVIDERS: ATTEND Internal Medicine
DX: N19 Unspecified kidney failure (principal); G93.41 Metabolic encephalopathy; F03.90 Unspecified dementia, unspecified severity, without behavioral disturbance, psychotic disturbance, mood disturbance, and anxiety; I10 Essential (primary) hypertension; I25.10 Atherosclerotic heart disease of native coronary artery without angina pectoris; A41.9 Sepsis, unspecified organism; N39.0 Urinary tract infection, site not specified; E46 Unspecified protein-calorie malnutrition

== ENCOUNTER 2017-11-29 14:06 | Emergency (ER) | payer MEDICARE ==
[~2017-11-29] VITALS: Ht 162.6 cm; Wt 63.5 kg
--- NOTE | 2017-11-29 14:06 | NUR ---
BIB SON C/O UTI SYMPTOMS, PAIN AND INABILITY TO URINATE KURTZ IN PLACED
--- NOTE | 2017-11-29 14:30 | NUR ---
NEW URINARY CATH IN PLACE. URINE SAMPLE COLLECTED SENT TO LAB
[2017-11-29 15:04] LABS: APPEARANCE,URINE Clear (CLEAR); BILIRUBIN,URINE Negative (NEGATIVE); BLOOD, URINE Large Ery/uL (NEGATIVE); COLOR,URINE Yellow (YELLOW); KETONES,URINE Negative (NEGATIVE); LEUKOCYTE ESTERASE ,URINE Large (NEGATIVE); NITRITE, URINE Positive (NEGATIVE); PH,URINE >9.0 (5.0-8.0); PROTEIN,URINE >=300 mg/dl (NEGATIVE); UGLUCOSE Negative (NEGATIVE); UROBILINOGEN,URINE 0.2 EU/dL (0.2)
[2017-11-29 15:10] LABS: BACTERIA,URINE 3+ /HPF (None Seen); RBC,URINE 21-50 /HPF (0-2); SQUAMOUS EPITHELIAL CELL,UR Few /HPF (None Seen); WBC,URINE 21-50 /HPF (0-3)
[2017-11-29] MEDS ORDERED: CEPHALEXIN MONOHYDRATE 500 MG CAPSULE PO ONE (15:19)
[2017-11-29] MEDS: CEPHALEXIN MONOHYDRATE 500 MG CAPSULE PO ONE (15:24)
--- NOTE | 2017-11-29 15:24 | NUR ---
Patient discharged to home in stable condition. Written and verbal after care instructions given. Patient verbalizes understanding of instruction.
[2017-11-29 15:31] VITALS: BP 132/76
== END 2017-11-29 15:32 | disposition home or self-care (01) ==
LOC: ER 14:08
DX: T83.091A Other mechanical complication of indwelling urethral catheter, initial encounter (principal); N39.0 Urinary tract infection, site not specified; I10 Essential (primary) hypertension; I25.10 Atherosclerotic heart disease of native coronary artery without angina pectoris; Z79.82 Long term (current) use of aspirin; Z88.1 Allergy status to other antibiotic agents; Z88.6 Allergy status to analgesic agent; Y92.89 Other specified places as the place of occurrence of the external cause
CPT/HCPCS: 51702; 81001; 87077; 87086; 87186; 99284; A4606; 81000-TC; Z7610

== ENCOUNTER 2018-02-02 01:12 | Emergency (ER) | payer MEDICARE ==
[~2018-02-02] VITALS: Ht 165.1 cm; Wt 63.5 kg
[~2018-02-02 01:12] MED LIST changes: -AMOX-430 PO
--- NOTE | 2018-02-02 01:12 | NUR ---
BB FAMILY; "UNABLE TO URINATE" PT IS HYPERTENSIVE BUT OTHERWISE VSS NAD A/OX4. WILL CONTINUE TO MONITOR FOR ANY CHANGES DURING THE SHIFT.
[2018-02-02] MEDS ORDERED: LIDOCAINE 2% JEL UROJET 10 ML MM ONE ×2 (01:53→02:00)
--- NOTE | 2018-02-02 02:13 | NUR ---
KURTZ CATH REPLACED AND URINE SAMPLE CALLED IN TO LAB. AWAITING PICKUP
[2018-02-02 02:41] LABS: APPEARANCE,URINE CLOUDY (CLEAR); BILIRUBIN,URINE NEGATIVE (NEGATIVE); BLOOD, URINE 3+ Ery/uL (NEGATIVE); COLOR,URINE ORANGE (YELLOW); KETONES,URINE NEGATIVE (NEGATIVE); LEUKOCYTE ESTERASE ,URINE 3+ (NEGATIVE); NITRITE, URINE POSITIVE (NEGATIVE); PH,URINE 8.5 (5.0-8.0); PROTEIN,URINE 2+ mg/dl (NEGATIVE); UGLUCOSE NEGATIVE (NEGATIVE); UROBILINOGEN,URINE 0.2 EU/dL (0.2)
[2018-02-02 02:47] LABS: BACTERIA,URINE Few /HPF (None Seen); RBC,URINE 81-100 /HPF (0-2); SQUAMOUS EPITHELIAL CELL,UR Few /HPF (None Seen)
[2018-02-02 02:48] LABS: MUCUS,URINE Few /LPF (None Seen)
--- NOTE | 2018-02-02 03:16 | NUR ---
PT COMFORTABLE AND AWAKE. WILL EXPLAIN D/C PAPERWORK
[2018-02-02] MEDS ORDERED: SULFAMETH/TRIMETH 800/160 MG 1 UDTAB TABLET PO ONE ×2 (03:23→03:30)
[2018-02-02 03:41] VITALS: BP 124/73
== END 2018-02-02 03:42 | disposition home or self-care (01) ==
LOC: ER 01:14
DX: N39.0 Urinary tract infection, site not specified (principal); Z46.6 Encounter for fitting and adjustment of urinary device; I10 Essential (primary) hypertension; I25.10 Atherosclerotic heart disease of native coronary artery without angina pectoris; Z79.82 Long term (current) use of aspirin; Z88.1 Allergy status to other antibiotic agents; Z88.6 Allergy status to analgesic agent
CPT/HCPCS: 81000-TC; 87086-TC; 87186-TC; A4606; J3490; Z7610